=== PATIENT | male | born 1950 | race Caucasian/White ===

== ENCOUNTER → 2016-08-25 | Outpatient (CLI) | payer MEDICARE, OTHER ==
[~2016-08-25] MED LIST: 'XANAX0.25 MG PO; 50% DEXTRO25 GM/50 M IV; ACETAZOLAMIDE250 MG PO; ADVAIR 250/501 EA INH; AKWA TEARS 15 M15 ML OPH; ASPIRIN81 MG PO; AZITHROMYCIN250 MG PO; BISAC-EVAC10 MG R; BISACODYL5 MG PO; BSC; CARAFATE1 G1 PO; CARDIZEM CD120 MG PO; CARTIA XT120 MG PO; CLOPIDOGREL75 MG PO; COREG6.25 MG PO; COUMADIN2.5 M1 PO; COUMADIN5 M2 PO; Carafate1 GM PO; DIAMOX125 MG PO; DUONEB 3 MG/3 ML3 M1 NEB; Duoneb 3ML 3 MG/3 ML INH; EFFIENT10 MG PO; FLOMAX0.4 MG PO; HOSPBED; HUMALOG100 U/ML SC; HUMULIN R100 U/ML SC; JANTOVEN1 MG PO; LANTUS100 U/ML SC; LASIX20 MG PO; LEVEMIR100 U/ML SC; LISINOPRIL10 MG PO; LOPRESSOR25 MG PO; MAPAP325 MG PO; MIRALAX17 GM/DOSE PO; ONDANSETRON2 MG/ML IV; PRAVASTATIN SOD40 MG PO; PREDNISONE10 MG PO; PRILOSEC20 MG PO; PROTONIX40 M1 IV; SHOWERCH; SODIUM CHLORIDE INH; SOLU-MEDROL40 MG IV; SPIRIVA18 MCG PO; TOPROL XL25 MG PO; TYLENOL650 MG R; VITAMIN D31000 IU PO; XANAX0.25 MG PO; [UNRECOGNIZED DRUG - OTHER] PO
[2016-08-25 10:10] LABS: HEMOGLOBIN A1c 6.9 % (4.8-5.6)
[2016-08-25 10:16] LABS: BUN 25 mg/dl (7-24); CARBON DIOXIDE 28 mmol/L (21-32); CHLORIDE 110 mmol/L (98-107); CHOLESTEROL 126 mg/dL (<200); CPK 42 U/L (39-308); EST GLOM FILT AFRICAN AMERICAN > 60 ml/min; GLUCOSE 108 mg/dL (65-99); HDL CHOLESTEROL 47 mg/dl (40-60); LDL CHOLESTEROL 60 mg/dL (9-159); POTASSIUM 4.3 mmol/L (3.5-5.1); SODIUM 143 mmol/L (136-145); TRIGLYCERIDES 96 mg/dl (<150); VLDL CHOLESTEROL 19 mg/dL (6-40)
== END | disposition home or self-care (01) ==
LOC: LAB 09:24
PROVIDERS: Family Medicine
DX: E11.9 Type 2 diabetes mellitus without complications (principal); E78.5 Hyperlipidemia, unspecified

== ENCOUNTER 2016-11-27 10:18 | Inpatient (IN) | payer MEDICARE, OTHER ==
[2016-11-27] VITALS (7 sets, daily range): BP systolic 114–137; BP diastolic 49–66
[~2016-11-27] VITALS: Ht 182.9 cm; Wt 77.2 kg
--- NOTE | ~2016-11-27 | PR ---
[place], [place] PROGRESS NOTE [id number] UN[facility] #: [id number] ROOM: 411 DOCTOR: MAURY FRY MD BIRTHDATE: [birth year] DOS: 12/02/2016 SUBJECTIVE: The patient is comfortably sleeping on BiPAP. OBJECTIVE: VITAL SIGNS: Blood pressure is 140/60, heart rate is 79, afebrile. NECK: Supple, no JVD. LUNGS: Diminished breath sounds. HEART: Sounds are regular, diminished air entry. ABDOMEN: Soft. NEUROLOGIC: Stable. LABORATORY DATA: All pending today. Last hemoglobin was 7.4 and hematocrit 26.1. Creatinine was 1.6. IMPRESSION: The patient with significant anemia, septicemia, chronic obstructive pulmonary disease, atrial fibrillation, emphysema, former smoker. RECOMMENDATIONS: Continue the antibiotics. Consideration should be given for blood transfusion. We will leave it up to the PCP and we will follow up. MAURY FRY MD CM:PNTRANS [id number] MAURY FRY MD 12/02/16 0638 interface
--- NOTE | ~2016-11-27 | PR ---
[place], [place] PROGRESS NOTE NAME: ARLETTE PROCTOR UNIT #: [id number] ROOM: 411 DOCTOR: BHAKTI LEONARDO MD BIRTHDATE: [birth year] DOS: 12/04/2016 SUBJECTIVE: The patient has been noted with a cough which has been not resolving for the patient, noted intermittently productive at times. Denies symptoms of chest pain. Shortness of breath has been noted at times. OBJECTIVE: VITAL SIGNS: For the patient which were recorded. The patient showed the temperature noted normal, respiratory rate 20, heart rate 62, blood pressure 138/60. Pulse oxygen saturation noted on 4 liters nasal cannula 99% saturation. HEENT: No acute change. NECK: Supple. CARDIOVASCULAR: S1, S2 audible. LUNGS: Noted with decreased breath sounds in the lungs bilaterally. ABDOMEN: Soft, nontender. EXTREMITIES: Shows very mild edema. LABORATORY DATA: CBC this morning showed WBC count 28.7, hemoglobin 8.2, hematocrit 28.3, platelet count 513,000. The culture of the sputum was pending at this time. IMPRESSION: 1. Acute right lower lobe pneumonia. 2. Leukocytosis. 3. Small pleural fluid associated with current acute pneumonia. 4. Persistent acute hypoxic respiratory failure. 5. Acute exacerbation of chronic obstructive pulmonary disease. 6. ____ debility. 7. History requirement significant amount of oxygen for this patient as well at this time. PLAN OF TREATMENT: The patient has been started on multiple broad spectrum intravenous antibiotics primary care attending. Monitor chest x-ray. The patient not noted fit for home discharge at this time. Transition from the hospital should be done to the senior care facility for this patient upon discharge. This will be necessary to stabilize the respiratory status. I did have a long discussion with the patient and the son and other family members in detail about the patient's ongoing problems, prognosis and the needed care. [place], [place] PROGRESS NOTE NAME: ARLETTE PROCTOR UNIT #: [id number] ROOM: 411 DOCTOR: BHAKTI LEONARDO MD BIRTHDATE: [birth year] BHAKTI GRAHAM MD CM:PNTRANS [phone] BHAKTI SPEARS MD 12/04/162010 interface
--- NOTE | ~2016-11-27 | PR ---
[place], [place] PROGRESS NOTE NAME: ARLETTE PROCTOR [facility] #: [id number] UNIT #: [id number] ROOM: 411 DOCTOR: SANTOS SPEARS MD,BHAKTI BIRTHDATE: [birth year] DOS: 12/06/2016 SUBJECTIVE: The patient was seen and examined on 12/06/2016. He has been noted comfortable without any distress. Cough has been noted mild intermittently at times. There were no symptoms of acute shortness of breath. Denies having symptoms of chest pain or hemoptysis. OBJECTIVE: VITAL SIGNS: For the patient which has been recorded showed the temperature noted as normal, respiratory rate 20, heart rate 61, blood pressure 136/66. The pulse oxygen saturation of the patient noted on nasal cannula is 98% saturation. HEENT: No acute change. NECK: Supple. CARDIOVASCULAR: S1, S2 audible. LUNGS: The patient was noted with mild decreased breath sounds noted in the lungs bilaterally. There no wheezing or crackles at the present time. ABDOMEN: Soft, nontender. EXTREMITIES: Noted with mild edema. LABORATORY DATA: BMP this morning, BUN 35, creatinine 1.46, glucose of 220. CBC this morning, WBC count 23.9, hemoglobin 8.5, hematocrit 29.6 with platelet count of 535,000. IMPRESSION: 1. The patient with a small possible moderate pleural fluid on the right side noted on CT scan of the chest. 2. Resolving acute pneumonia. 3. Leukocytosis, gradually improving. 4. Improving acute hypercapnic and hypoxic respiratory failure as well. PLAN OF MANAGEMENT: The patient has been assessed personally at the bedside with the ultrasound. The ultrasound of the chest was personally performed. There were no pleural fluid noted in the left side. A very small pleural fluid was noted on the right side, which is not noted safe for thoracentesis to be done based on the ultrasound assessment. PLAN OF TREATMENT: Continue antibiotics, bronchodilators, and oxygen supplementation. Thoracentesis is not recommended. residential facility evaluation for possible discharge for this patient to the penitentiary facility. The patient has already completed the Diamox for the medical management of severe metabolic alkalosis, which has improved related to the chronic hypercarbia. He was also noted ____ for this patient as well, which has been noted stable. [place], [place] PROGRESS NOTE NAME: ARLETTE PROCTOR UNIT #: [id number] ROOM: 411 DOCTOR: SANTOS SPEARS MD,BHAKTI BIRTHDATE: [birth year] BHAKTI GRAHAM MD CM:ROCHELLE [phone] BHAKTI SPEARS MD 12/07/16 010 interface
--- NOTE | ~2016-11-27 | PR ---
[place], [place] PROGRESS NOTE NAME: ARLETTE PROCTOR UNIT #: [id number] ROOM: 411 DOCTOR: BHAKTI LEONARDO MD BIRTHDATE: [birth year] DOS: 12/01/2016 SUBJECTIVE: The patient seen and examined on 12/01/2016. He had ambulated yesterday, noted with hypoxia with oxygen saturation 88%. The patient has not noted any symptoms of chest pain or any hemoptysis. OBJECTIVE: VITAL SIGNS: For the patient which were recorded. The patient shows normal temperature, respiratory rate 20, heart rate 74, blood pressure 104/58 to 115/52. Pulse oxygen saturation on 3 liters nasal canula 92% saturation. HEENT: Showed no acute change. NECK: Supple. CARDIOVASCULAR: S1, S2 is audible. LUNGS: Noted without any wheezing or crackles at the present time. Breaths are noted generally diminished bilaterally. ABDOMEN: Soft, nontender. LABORATORY DATA: Chest x-ray that was done this morning was reviewed and shows small right lower lobe infiltration with small pleural fluid. CBC: WBC count 17.4, hemoglobin 7.4, hematocrit 26.1, platelet count was normal. BMP: BUN 48, creatinine 1.62. IMPRESSION: 1. The patient with resolving acute hypercapnic and hypoxic respiratory failure, acute pneumonia. 2. Small pleural fluid related to current acute pneumonia. 3. Anemia. The etiology was unclear. PLAN OF MANAGEMENT: Continuation of current dose of Solu-Medrol 40 mg b.i.d. The patient getting Xarelto and that needs to be monitored because of the current anemia, rule out any GI bleeding. Pleural fluid is noted small enough at this time but not require any acute intervention. Monitor current treatment. The dose of Solu-Medrol will be decreased tomorrow to 40 mg daily. Ambulation, the patient will be encouraged as needed. Continue oxygen supplementation. [place], [place] PROGRESS NOTE NAME: ARLETTE PROCTOR UNIT #: [id number] ROOM: 411 DOCTOR: BHAKTI LEONARDO MD BIRTHDATE: [birth year] BHAKTI GRAHAM MD CM:PNTRANS [phone] BHAKTI SPEARS MD 12/01/165 interface
--- NOTE | ~2016-11-27 | PR ---
[place], [place] PROGRESS NOTE NAME: ARLETTE PROCTOR [facility] #: [id number] UNIT #: [id number] ROOM: 411 DOCTOR: SANTOS SPEARS MD,BHAKTI BIRTHDATE: [birth year] DOS: 11/30/2016 SUBJECTIVE: He has been continued on the BiPAP ____ use of oxygen supplementation, bronchodilators, and corticosteroids. Partial reduction of the respiratory symptoms has been ____ reduction of wheezing. Denies symptoms of chest pain or an abdominal pain. OBJECTIVE: VITAL SIGNS: Show normal temperature, respiratory rate 18, heart rate 70, blood pressure 114/52. The pulse oxygen saturation was recorded as 96% saturation with 4.5 L nasal cannula oxygen supplementation. HEENT: Examination showed no acute change. LUNGS: Noted with mild to moderate expiratory wheezing, improving. Mild crackles noted at the right lung base. ABDOMEN: Soft, nontender. LABORATORY DATA: BUN of 50, creatinine 1.67. CBC that was done this morning, WBC count 19.2, hemoglobin 7.3, hematocrit 25.6, platelet count was normal. IMPRESSION: 1. Acute right lower lobe pneumonia with acute on chronic hypoxic and hypercapnic respiratory failure. 2. Anemia. 3. Leukocytosis. 4. Acute kidney injury. PLAN OF MANAGEMENT: Reduce the dose of Solu-Medrol at this time to Solu-Medrol 40 mg b.i.d. Previously, the patient has been getting Solu-Medrol 60 mg b.i.d. Obtain a chest x-ray in the morning to reassess the progression of the pneumonia. Ambulation was encouraged. Continue use of BiPAP with oxygen supplementation and other therapies. BHAKTI GRAHAM MD CM:PNTRANS [phone] BHAKTI SPEARS MD 11/30/161958 interface
--- NOTE | ~2016-11-27 | PR ---
[place], [place] PROGRESS NOTE NAME: ARLETTE PROCTOR [facility] #: [id number] UNIT #: [id number] ROOM: 411 DOCTOR: MAURY FRY MD BIRTHDATE: [birth year] DOS: 12/05/2016 SUBJECTIVE: The 24-hour events noted. Discussed with the nursing staff. Hemodynamically, the patient is stable. OBJECTIVE: VITAL SIGNS: Blood pressure is stable at 129/67. HEENT: Unremarkable. NECK: Supple, no JVD. LUNGS: Clear. HEART: Sounds are regular. ABDOMEN: Soft, nontender. NEUROLOGIC: Stable. LABORATORY DATA: White count is elevated to be 27,000, it was 28,000 yesterday; hemoglobin 8.3, hematocrit 29.1. Electrolytes are normal. Creatinine is 1.2. IMPRESSION: Leukocytosis, septicemia, chronic respiratory failure, protein calorie malnutrition, atrial fibrillation in sinus rhythm to sinus bradycardia, emphysema, pulmonary nodule. Former smoker. The patient is comfortably sleeping. Probably elevated white count is from the steroids. Monitor the heart rate and blood pressure. Agree getting UTI evaluation with urinalysis and monitor the blood cultures etc., because of leukocytosis and we will follow up. MAURY FRY MD CM:ROCHELLE [phone] MAURY FRY MD 12/06/16 0249 interface
--- NOTE | ~2016-11-27 | PR ---
[place], [place] PROGRESS NOTE [facility] [id number] UNIT #: [id number] ROOM: 411 DOCTOR: MAURY FRY MD BIRTHDATE: [birth year] DOS: SUBJECTIVE: 24-hour events noted. Discussed with the nursing staff. The patient has been back into sinus rhythm. Hemodynamically much more stable. The patient was seen originally by Dr. Dixon. OBJECTIVE: VITAL SIGNS: The patient's blood pressure is 96/57, little bit on the lower side, but the heart rate is controlled at 71. HEENT: Unremarkable. NECK: Supple, no JVD. LUNGS: Diminished air entry today. Saturation is good. HEART: S1 and S2 audible and regular. Diminished air entry with mild expiratory wheezing. ABDOMEN: Soft. EXTREMITIES: Intact pulses. DIAGNOSTIC DATA: Chest x-ray shows evidence of infiltration of the right lower lobe, still noted and persistent. Impression is paroxysmal atrial fibrillation. LABORATORY DATA: Lab data shows hemoglobin is significantly low at 7.3, hematocrit of 25.6, BUN and creatinine are 50 and 1.67. IMPRESSION: The patient with hypercapnic respiratory failure, right lower lobe pneumonia, paroxysmal atrial fibrillation, chronic renal failure, severe anemia. RECOMMENDATION: The patient has been started on Xarelto. The patient is severely anemic. As the creatinine is elevated, please modify the dosage according to the creatinine clearance or the GFR. Continue the other medications as ordered. Probably might need blood transfusion, I leave it up to the PCP and we will follow up. MAURY FRY MD CM:PNTRANS [phone] MAURY FRY MD 11/30/16 1622 interface
--- NOTE | ~2016-11-27 | PR ---
[place], [place] PROGRESS NOTE [facility] [id number] UNIT #: [id number] ROOM: 411 DOCTOR: BHAKTI LEONARDO MD BIRTHDATE: [birth year] DOS: 12/03/2016 SUBJECTIVE: The patient has been noted comfortable at this time without any distress. The shortness of breath has been noted with intermittent coughing. The patient at this time without any sputum expectoration, which was noted moderate. The patient denies symptoms of chest pain or hemoptysis. OBJECTIVE: VITAL SIGNS: Temperature noted as normal, respiratory rate 20, heart rate 67, blood pressure 146/62-118/63. Pulse oxygen saturation recorded as 95% with BiPAP on 4 liters is 98% saturation. HEENT: Examination shows no new change. NECK: Supple. CARDIOVASCULAR: S1, S2 audible. LUNGS: Noted with decreased breath sounds in the right lower lung. Occasional wheezing. ABDOMEN: Soft, nontender. LABORATORY DATA: CBC was done this morning, WBC count was elevated to 24.6, hemoglobin 8.4, hematocrit 28.9 and platelet count 479,000. CMP of this morning, BUN 42, creatinine was normal, glucose 216 and CO2 of 41. Chest x-ray was done this morning was reviewed and noted with infiltration in the right lower lobe with partial improvement to consider. IMPRESSION: 1. The patient with ongoing acute on chronic hypercapnic and hypoxic respiratory failure. 2. The patient's metabolic alkalosis secondary to chronic hypercarbia. 3. Acute right lower lobe pneumonia with cough and leukocytosis. PLAN OF MANAGEMENT: Consideration for bronchoscopy. Use of the Diamox at low dose to resolve the metabolic alkalosis. Addition of treatment changes need to be made based on progression of the illness. Continue to monitor leukocytosis. Antibiotics spectrum might need to be changed for this patient if the chest x-ray does not show any further improvement in the pulmonary infiltration. [place], [place] PROGRESS NOTE NAME: [facility] PROCTOR [facility] #: [id number] UNIT #: [id number] ROOM: 411 DOCTOR: BHAKTI LEONARDO MD BIRTHDATE: [birth year] BHAKTI GRAHAM MD CM:PNTRANS 1221 BHAKTI SPEARS MD 12/04/16 0117 interface
--- NOTE | ~2016-11-27 | EKG ---
[place], [place] ELECTROCARDIOGRAM REPORT NAME: ARLETTE PROCTOR UNIT #: [id number] ROOM: 411 DOCTOR: YOEL PETERSON MD BIRTHDATE: [birth year] DOS: 11/27/2016 TIME: 2132 hours. Atrial fibrillation with ventricular rate of 163 beats per minute. Nonspecific ST-T wave changes in lateral chest leads. Abnormal ECG. No previous tracing is available for comparison. YOEL PETERSON MD CM:EKGRPT:ELECTROCARDIOGRAM REPORT 1152 1324 YOEL PETERSON MD
--- NOTE | ~2016-11-27 | PR ---
[place], [place] PROGRESS NOTE NAME: ARLETTE PROCTOR [facility] #: [id number] UNIT #: [id number] ROOM: 411 DOCTOR: YOEL PETERSON MD BIRTHDATE: [birth year] DOS: 12/06/2016 SUBJECTIVE: The patient is feeling much better. He has some shortness of breath, but ____ when he came. He has no palpitations. He has ____ PND, orthopnea or swelling of the lower extremities. He was in atrial fibrillation when he came and he has history of the same, therefore propafenone was started while he was in the ICU. OBJECTIVE: GENERAL: He is sitting in a chair, has oxygen on, with mild tachypnea. VITAL SIGNS: Temperature is normal, pulse is 60 and regular, blood pressure 133/66. NECK: Normal JVP. EXTREMITIES: There is no edema in lower extremities, however, muscle mass of the legs has decreased. LUNGS: Breath sounds are severely diminished with adventitious sounds. LABORATORY DATA: Monitor shows normal sinus rhythm. IMPRESSION: 1. Paroxysmal atrial fibrillation, triggered by chronic obstructive pulmonary disease exacerbation. He is in normal sinus rhythm and propafenone should be continued. 2. There is no clinical evidence of cardiac decompensation. 3. Anemia seems to have settled down. YOEL PETERSON MD CM:PNTRANS [phone] YOEL PETERSON MD 12/06/16 1656 interface
--- NOTE | ~2016-11-27 | PR ---
[place], [place] PROGRESS NOTE NAME: ARLETTE PROCTOR [facility] #: [id number] UNIT #: [id number] ROOM: 411 DOCTOR: SANTOS SPEARS MD,BHAKTI BIRTHDATE: [birth year] DOS: 12/02/2016 PULMONARY FOLLOWUP SUBJECTIVE: He has been noted comfortable at this time, resting on his bed. The patient's shortness of breath has been noted intermittently improved. The cough has been noted with some sputum expectoration at times. OBJECTIVE: VITAL SIGNS: Normal temperature, respiratory rate 20, heart rate 67, blood pressure 126/58. Pulse oxygen saturation of the patient noted on 4 liters nasal cannula 96% saturation. HEENT: Showed no acute change. NECK: Supple. CARDIOVASCULAR: S1, S2 is audible. LUNGS: The patient was noted with moderate reduction in the breath sounds bilaterally with mild expiratory wheezing, no crackles. ABDOMEN: Soft, nontender. LABORATORY DATA: Culture of the blood from the 14th showed no bacterial growth. BMP: BUN 47, creatinine 1.42. CBC: WBC count 19.5, hemoglobin 7.3, hematocrit 25.3, platelet count 431,000. Chest x-ray was done yesterday was noted with pulmonary infiltration. IMPRESSION: 1. The patient with leukocytosis with acute pneumonia, acute hypoxic and hypercapnic respiratory failure. 2. Generalized debility was still noted. PLAN OF TREATMENT: Continue the BiPAP intermittently, bronchodilators, oxygen supplementation and expectant management at this time. Other supportive therapy, plan of management and care. BHAKTI GRAHAM MD CM:PNTRANS [phone] BHAKTI SPEARS MD 12/03/16 0234 interface
--- NOTE | ~2016-11-27 | EKG ---
[place], [place] ELECTROCARDIOGRAM REPORT NAME: ARLETTE PROCTOR UNIT #: [id number] ROOM: 411 DOCTOR: YOEL PETERSON MD BIRTHDATE: [birth year] DOS: 11/27/2016 TIME: 1038 hours. Normal sinus rhythm at 98 beats per minute. The tracing is normal. No previous tracing is available for comparison. YOEL PETERSON MD CM:EKGRPT:ELECTROCARDIOGRAM REPORT 1151 1324 YOEL PETERSON MD
--- NOTE | ~2016-11-27 | PR ---
[place], [place] PROGRESS NOTE NAME: ARLETTE PROCTOR [facility] #: [id number] UNIT #: [id number] ROOM: 411 DOCTOR: SANTOS SPEARS MD,BHAKTI BIRTHDATE: [birth year] DOS: 12/05/2016 SUBJECTIVE: The patient was noted with minimal cough at this time. Shortness of breath has been resolving. There were no symptoms of chest pain or abdominal pain. Spontaneous sputum culture from the 20th was noted without any bacterial growth. OBJECTIVE: VITAL SIGNS: Normal temperature, respiratory rate 20, heart rate 59, blood pressure 132/70. The pulse oxygen saturation of the patient recorded as 98% on 3 L nasal cannula. CARDIOVASCULAR: S1, S2 audible. LUNGS: Noted with decreased breath sounds in the lungs noted bilaterally. ABDOMEN: Soft, nontender. Bowel sounds present. EXTREMITIES: The patient was noted without any edema, clubbing or cyanosis. LABORATORY DATA: CBC of the patient that was done this morning, WBC count was elevated at 27,000, hemoglobin 8.3, hematocrit 29.1, platelet count 537,000. The cultures of the sputum of the patient noted isolation of yeast. BMP today; glucose 207, BUN 35, creatinine was normal, CO2 of 33. Chest x-ray without contrast ordered by the primary care attending was reviewed and shows evidence of small to possible moderate-sized right pleural fluid, evidence of granulomatous lung disease, which has been noted chronic. Bullous emphysema. The patient was also noted in the upper lung, predominantly with centrilobular emphysema component as well. Mild mediastinal hilar lymphadenopathy would be suggested, but because of lack of IV contrast, the mediastinal structure cannot be clearly delineated. IMPRESSION: 1. The patient with leukocytosis. The patient currently treated for the acute pneumonia. The WBC count still remains elevated significantly. 2. The patient on anticoagulation as well. 3. Pleural fluid, possibly related to pneumonia or congestive heart failure remains as a consideration. 4. History of atrial fibrillation on Xarelto for the patient long-term anticoagulation. PLAN OF TREATMENT: The patient will be assessed with the ultrasound tomorrow. If there is significant pleural fluid, which would be tappable, thoracentesis could be done if the patient agrees to that. In the meantime, continue the patient on other therapy, plan and management. Suggest reducing antibiotic spectrum for this patient, the leukocytosis partly could be related to the use of the corticosteroids and some of it may be related and other infection to be excluded with the symptoms if present such as C. diff colitis. [place], [place] PROGRESS NOTE NAME: ARLTETE PROCTOR [place] UNIT #: [id number] ROOM: [facility] DOCTOR: BHAKTI LEONARDO MD BIRTHDATE: [birth year] BHAKTI GRAHAM MD CM:PNTRANS [phone] BHAKTI SPEARS MD 12/06/16 0335 interface
--- NOTE | ~2016-11-27 | CON ---
[place], [place] REPORT OF CONSULTATION [id number] UNIT #: [id number] ROOM: [facility] DOCTOR: YOEL PETERSON MD BIRTHDATE: [birth year] DOS: HISTORY OF PRESENT ILLNESS: This is a 66-year-old -Honduran man with a history of severe COPD with exacerbations, who has had, I believe, diastolic heart failure, has moderate pulmonary hypertension, hypocholesterolemia, atrial fibrillation, anemia, BPH and has had coronary artery disease and coronary artery bypass graft surgery in the remote past. He also had acute renal failure back in 2014, when he required dialysis for a short time. He quit smoking, quit long time ago and lives at home. He was admitted to the hospital because of increasing shortness of breath and cough over the last few days. There is very little expectoration. He had some chills, but no chest pain or palpitations. He did not have any swelling in the legs. His appetite has been down substantially. The patient was admitted to the hospital and was placed on BiPAP because of chronic respiratory failure with exacerbation. He was in sinus rhythm on admission, but last night, developed atrial fibrillation with rapid ventricular rate and I was asked to advise regarding management. IV Cardizem was started that slowed down the heart rate; however, he still remains in atrial fibrillation, but he is not aware of his heart beating irregularly. HOME MEDICATIONS: Include Symbicort, Xarelto 20 daily, metoprolol succinate 25 mg b.i.d., simvastatin 40 mg daily, diltiazem/Cartia XT 120 mg once a day, Carafate 1 gram b.i.d. and tamsulosin/Flomax 0.4 mg daily and furosemide 40 mg daily. PHYSICAL EXAMINATION: GENERAL: Reveals the patient who was alert, looked pale. He had a pressure support for breathing and was more modestly tachypneic. VITAL SIGNS: Temperature was normal. Pulse was irregular at about 104 beats per minute, blood pressure 106/61. NECK: JVP was normal. No bruit in the neck. HEART: There was no cardiomegaly. No murmurs were present. There was no pericardial friction rub. He had no edema in the lower extremities. RESPIRATORY: Breath sounds were severely diminished bilaterally with his severe crackles during inspiration and expiration. DIAGNOSTIC STUDIES: ECG on admission demonstrated sinus tachycardia. Second ECG demonstrated atrial fibrillation with a ventricular rate of 163 beats per minute. The monitor now shows atrial fibrillation with a rate in the 80s. Chest x-ray demonstrates COPD and no pulmonary edema. Hemoglobin of 7.5 grams per deciliter, potassium 4.0 and troponin I level was elevated to 0.841 until the night and on admission, it was less than 0.015. IMPRESSION: 1. Acute exacerbation of chronic obstructive pulmonary disease causing significant respiratory failure. [place], [place] REPORT OF CONSULTATION NAME: ARLETTE PROCTOR UNIT #: [id number] ROOM: [facility] DOCTOR: YOEL PETERSON MD BIRTHDATE: [birth year] 2. Atrial fibrillation with recurrence of atrial fibrillation, probably induced viral chronic obstructive pulmonary disease exacerbation. 3. No evidence of heart failure. 4. Severe anemia. RECOMMENDATIONS: If the patient has no blood in the stools, anticoagulation should be continued. Propafenone 150 q. 8 h. being started to restore normal sinus rhythm. Please check magnesium level. I thank you for this consult. YOEL PETERSON MD CM:CONSTR:REPORT OF CONSULTATION 0632 11/28/16 1539 interface
--- NOTE | ~2016-11-27 | CON ---
[place], [place] REPORT OF CONSULTATION NAME: ARLETTE PROCTOR [facility] #: [id number] UNIT #: [id number] ROOM: [facility] DOCTOR: BHAKTI LEONARDO MD BIRTHDATE: [birth year] DOS: 11/28/2016 CONSULTATION REQUESTED BY: Hospitalist Service. REASON FOR CONSULTATION: For assessment of the acute respiratory failure. The patient had noticed problems with exacerbation of COPD. HISTORY OF PRESENT ILLNESS: This is a 66-year-old white male very well known to me from the past with history of severe centrilobular emphysema and history of past chronic hypoxic respiratory failure, currently not using oxygen supplementation, came to the hospital Emergency Room. The patient reported ongoing acute respiratory symptoms for the past 1 month. The symptoms noted significant worsening in the last 5 days and a lot worse for this patient in 24 hours prior to assessment in the Emergency Room. He was also noted with increased cough which has been noted nonproductive, sometimes sputum expectoration noted as mucous expectoration. He denies symptoms of chest pain. The patient has been seen by the primary care physician and has been treated with the antibiotics, bronchodilators without any response to the treatment. He came into the hospital. The patient has been currently admitted to intensive care unit for medical management of acute hypercapnic and hypoxic respiratory failure. This morning, the patient noted on the BiPAP use. He denied symptoms of hemoptysis or any acute chest pain. REVIEW OF SYSTEMS: CONSTITUTIONAL: He does have symptoms of fatigue and tiredness without symptoms of fever or chills. EYES: Denies any burning, redness, or tenderness. EARS, NOSE AND THROAT: Denies sore throat, hoarseness, otalgia, or postnasal drainage or epistaxis. CARDIOVASCULAR: Denies anginal pain, edema or pain of the lower extremities. GASTROINTESTINAL: Denies dysphagia, nausea, vomiting, diarrhea, abdominal pain, hematemesis, melena, hematochezia. SKIN: Denies lesions or rashes. MUSCULOSKELETAL: Denies acute joint pain, redness, or tenderness. SKIN: No lesions or rashes. CENTRAL NERVOUS SYSTEM: Denies diplopia or syncopal episodes. Remaining systems were reviewed with the patient, they were noted all negative. PAST MEDICAL HISTORY: Known with history of: 1. Severe COPD and centrilobular emphysema. 2. Generalized anxiety disorder. 3. Prolonged illness of patient with acute kidney injury and critical care illness-induced myopathy with decreased ambulation resolved progressively. 4. Essential hypertension. 5. History of atrial fibrillation as well. 6. Past hypoxic respiratory failure, resolved. 7. Atherosclerotic cardiovascular disease. 8. History of past pulmonary nodules which appeared to be benign and stable. 9. History of coronary artery disease. [place], [place] REPORT OF CONSULTATION NAME: ARLETTE PROCTOR UNIT #: [id number] ROOM: [facility] DOCTOR: NOEMY LEONARDO MDM BIRTHDATE: [birth year] PAST SURGICAL HISTORY: 1. Coronary artery bypass grafting. 2. Cardiac catheterization with 3-vessel bypass and coronary artery stent insertion. 3. History of mechanical ventilation and intubation. 4. Fiberoptic bronchoscopy. 5. Short term hemodialysis, resolved in 03/2014. SOCIAL HISTORY: The patient is and lives at home. History of tobacco use noted at younger age. The patient smoked up to 5 packs of cigarettes per day, not smoking cigarettes on a regular basis. Denies history of alcohol use, illicit drug use. FAMILY HISTORY: Mother at the age of 5858 years old, complications of COPD. Father at age 67-year-old with history of complication of myocardial infarction. MEDICATIONS: On admission were noted as use of Xarelto, metoprolol tartrate, Cardizem-CD, aspirin, Symbicort, ProAir HFA, Flomax, Zocor, Carafate, Lasix, Toprol XL. DRUG ALLERGIES: No known drug allergies. PHYSICAL EXAMINATION: GENERAL: This is a 66-year-old white male, currently using the BiPAP at this time appeared to be comfortable with that. VITAL SIGNS: The patient's height was recorded by the nursing staff at the time of current admission with height of 6 feet, weight of 177 pounds. Shows the temperature was recorded normal since admission. Respiratory rate range between 18 to 22, heart rate of 108 to 113 and then later on 85, blood pressure 132/60 to 109/59. Intake is 1600, output 550 mL in the last 12 hours. Pulse oxygen saturation for this patient on room air was 84% and on 4 liters nasal cannula 92% with BiPAP 99% saturation recorded at this time. HEENT: Shows head was atraumatic. Eyes nonicterus. NECK: Supple. CARDIOVASCULAR: S1, S2 audible. LUNGS: General reduction of breath sound, diffuse expiratory wheezing. Crackles noted in the lung bases, the patient has scattered. ABDOMEN: Soft, nontender, bowel sounds present. CENTRAL NERVOUS SYSTEM: Cranial nerves 2-12 intact. No focal deficits. MUSCULOSKELETAL: No deformities. SKIN: No lesions or rashes. LABORATORY AND DIAGNOSTIC DATA: The CBC of 11/27/2016, WBC count 21.5, hemoglobin 8.4, hematocrit 29.4, platelet count was normal. The lactic acid noted 1.3 yesterday. PT/PTT yesterday were normal. The CMP of the patient that were done yesterday on admission was noted BUN 20, creatinine 1.31. First arterial blood gas on 5 liters, pH of 7.11, pCO2 of 67, pO2 of 42. Second arterial blood gas of the patient with 5 liters nasal cannula oxygen, pH of [place], [place] REPORT OF CONSULTATION NAME: ARLETTE PROCTOR UNIT #: [id number] ROOM: [facility] DOCTOR: SANTOS SPEARS MD,[facility] BIRTHDATE: [birth year] 7.14, pCO2 of 58, pO2 of 68. The first arterial blood gas appeared to be venous gas. CBC this morning WBC count 21.7, hemoglobin 7.3, hematocrit 26.7, platelet count 273,000 with only differential noted with 97% segmented neutrophils. The BMP of this morning with BUN 28, creatinine 1.55, glucose 271. CBC of 11/28/2016 were noted. Radiology data reviewed. The chest x-ray of the patient that was done on admission was noted with moderate area of consolidation and infiltration noted in the right lung with severe COPD changes with bullous emphysema. The patient was noted in the right upper lobe and some to the left lower lobe, greater on the right than the left side. The chest x-ray of the patient again later on in the afternoon for this patient's admission, similar changes to the x-ray noted previously with an area of consolidation in the right lower lobe and severe COPD changes as well tortuous aorta was also described by the radiologist. IMPRESSION: 1. The patient who has been currently admitted to the hospital noted with severe acute hypercapnic and hypoxic respiratory failure, currently treated with Bilevel treatment, responding to the treatment clinically. 2. Acute large pneumonia of the patient's right lower lobe as well with possible consideration of gram-positive organism with the patient's community-acquired infection. 3. The patient with bullous emphysema also noted in the lungs, which has been known from the past with pulmonary disease. 4. History of essential hypertension, coronary artery disease, atrial fibrillation with rapid ventricular response. PLAN OF MANAGEMENT: Obtain the sputum for Gram stain and culture as well. Obtain arterial blood gases of the patient as well to assess the patient progression of the ventilatory improvement at the present time. Clarify the code status from the patient for intubation and mechanical ventilation, also discuss with the family members. Other additional treatment changes need to be made based on progression of the illness. Obtain a PA and lateral chest view in the morning for the assessment of the pneumonia, more accurate assessment of the lower lobes as well accordingly. Continuation of the current dose of Solu-Medrol as well. Bronchodilators. Other additional treatment changes need to be made for this patient's treatment based on progression of the illness. The patient will be encouraged continued to use the Bilevel mode of treatment at the current settings with further adjustment in the setting of Bilevel which will be done based on the progression of his illness. Bilevel mode of treatment continue to be used on the patient most of the time except meals. If the patient remains a full code, certainly consider intubation and mechanical ventilation to support the respiratory status in case of failure of the BiPAP response. [place], [place] REPORT OF CONSULTATION NAME: ARLETTE PROCTOR UNIT #: [id number] ROOM: [facility] DOCTOR: BHAKTI LEONARDO MD BIRTHDATE: [birth year] BHAKTI GRAHAM MD CM:CONSTR:REPORT OF CONSULTATION 1317 11/29/16 1328 interface
--- NOTE | ~2016-11-27 | PR ---
[place], [place] PROGRESS NOTE NAME: ARLETTE PROCTOR UNIT #: [id number] ROOM: 411 DOCTOR: BHAKTI LEONARDO MD BIRTHDATE: [birth year] DOS: 11/29/2016 SUBJECTIVE: He has been noted comfortable at this time, sitting on the chair. The oxygen supplementation is continued. The cough has been noted with some sputum expectoration, wheezing was noted partially decreased, reduction of shortness of breath at this time. The patient has used the BiPAP for several hours in the last 24 hours. OBJECTIVE: VITAL SIGNS: For the patient was noted as normal temperature, respiratory rate 18-19, heart rate 68, and blood pressure 109/65. Pulse oxygen saturation on 35% oxygen was 97% saturation recorded. HEENT: Examination shows no new change. NECK: Supple. CARDIOVASCULAR: S1, S2 is audible. LUNGS: Noted with general reduction in the breath sounds with expiratory wheezing in the lungs bilaterally. ABDOMEN: Soft, nontender. EXTREMITIES: Does not show any edema, clubbing or cyanosis. LABORATORY DATA: The chest x-ray of the patient that was done today, PA and lateral view, shows evidence of infiltration in the right lower lobe was still noted persistent, but partially decreased. IMPRESSION: 1. The patient who has been currently noted with acute severe hypercapnic and hypoxic respiratory failure. The patient has a combination of acute right lower lobe pneumonia, community-acquired infection with acute exacerbation of chronic obstructive pulmonary disease as well. 2. Metabolic alkalosis secondary to hypercarbia. PLAN OF TREATMENT: Continuation of the current dose of bronchodilator with oxygen supplementation. Solu-Medrol is currently given at 60 mg b.i.d., which will remain the same. Use of the BiPAP and other treatment for patient as previously to support his respiratory status. Monitoring all the culture results. Additional treatment changes need to be made for this patient based on progression of his illness. Usual care and other plan of therapies. [place], [place] PROGRESS NOTE NAME: ARLETTE PROCTOR UNIT #: [id number] ROOM: 411 DOCTOR: BHAKTI LEONARDO MD BIRTHDATE: [birth year] BHAKTI GRAHAM MD CM:ROCHELLE [phone] BHAKTI SPEARS MD 11/30/168 interface
--- NOTE | 2016-11-27 10:45 | NUR ---
PT IS HOME O2 DEPENDENT ON 2L QHS, PT WAS W/O O2 AND SOB UPON HIS ARRIVAL POX 84% RA, 4L WAS APPLIED PT O2 97% WILL MONITOR.
[2016-11-27 10:55] LABS: BASO % 0.1 % (0.0-1.0); EOS % 0.1 % (1.0-4.0); HEMATOCRIT 29.6 % (42.0-52.0); HEMOGLOBIN 8.4 g/dl (14.0-18.0); LYMPH # 0.8 10*3/uL (1.3-4.4); LYMPH % 3.8 % (27.0-41.0); MEAN CELL VOLUME 82.2 fl (80.0-94.0); MEAN CORPUSCULAR HGB 23.3 pg (27.0-31.0); MEAN CORPUSCULAR HGB CONC 28.4 g/dl (33.0-37.0); MEAN PLATELET VOLUME 9.8 fl (9.6-12.3); MONO # 1.5 10*3/uL (0.1-1.0); MONO % 6.9 % (3.0-9.0); NEUT % 88.4 % (47.0-73.0); PLATELET COUNT AUTOMATED 305 10*3/uL (130-400); RED CELL DISTRI WIDTH 16.7 % (0-14.5); WHITE BLOOD COUNT 21.5 10*3/uL (4.8-10.8)
[2016-11-27 11:06] LABS: ACT PARTIAL THROMBO TIME 41.4 SECONDS (20.8-31.5)
[2016-11-27 11:14] LABS: ALBUMIN 3.2 gm/dl (3.1-4.5); ALKALINE PHOSPHATASE 114 U/L (45-117); BUN 20 mg/dl (7-24); CHLORIDE 109 mmol/L (98-107); CREATININE 1.31 mg/dL (0.70-1.30); MAGNESIUM 2.4 mg/dL (1.5-2.1); POTASSIUM 3.8 mmol/L (3.5-5.1); SGOT/AST 11 IU/L (3-35); SGPT/ALT 21 U/L (12-78); SODIUM 142 mmol/L (136-145); TOTAL PROTEIN 7.6 gm/dL (6.4-8.2)
[2016-11-27 11:17] LABS: TROPONIN I < 0.015 ng/ml (<0.045)
--- NOTE | 2016-11-27 12:46 | NUR ---
A 66, admitted to , under the services of KRIS Yost DO with a diagnosis of RESPITORY FAILURE . Chief complaint is SOB SINCE TUESDAY. Patient arrived via stretcher from ER. Monitor applied. Initial assessment completed. Vital signs taken and recorded. KRIS YOST DO notified of admission to the unit. Orders received. See assessment for past medical history, medications and allergies. Patient and/or family oriented to unit. [facility]. Clothing/patient valuable form completed. NUSRAT RICHARDSON
[2016-11-27] MEDS ORDERED: XARE20MG PO (13:07)
[2016-11-27] MEDS ORDERED: LASIX40 MG PO (13:08)
[2016-11-27] MEDS ORDERED: ZOCOR40 MG PO (13:08)
[2016-11-27] MEDS ORDERED: Carafate1 GM PO (13:09)
[2016-11-27] MEDS ORDERED: SYMB160 INH (13:11)
--- NOTE | 2016-11-27 13:57 | NUR ---
DR. GRAHAM NOTIFIED OF CONSULT.
[2016-11-27 21:49] LABS: HEMATOCRIT 26.5 % (42.0-52.0); HEMOGLOBIN 7.5 g/dl (14.0-18.0); MEAN CELL VOLUME 83.1 fl (80.0-94.0); MEAN CORPUSCULAR HGB 23.5 pg (27.0-31.0); MEAN CORPUSCULAR HGB CONC 28.3 g/dl (33.0-37.0); MEAN PLATELET VOLUME 10.2 fl (9.6-12.3); NUCLEATED RED BLOOD CELL 0.1 % (0.0-0.0); PLATELET COUNT AUTOMATED 286 10*3/uL (130-400); RED BLOOD COUNT 3.19 10*6/uL (4.50-5.90); RED CELL DISTRI WIDTH 16.6 % (0-14.5); WHITE BLOOD COUNT 22.5 10*3/uL (4.8-10.8)
[2016-11-27 22:08] LABS: BUN 20 mg/dl (7-24); CHLORIDE 108 mmol/L (98-107); CREATININE 1.31 mg/dL (0.70-1.30); SODIUM 140 mmol/L (136-145)
[2016-11-27 22:12] LABS: TOTAL CELLS COUNTED 100 #CELLS; TROPONIN I 0.374 ng/ml (<0.045)
[2016-11-27 22:13] LABS: OVALOCYTES FEW
[2016-11-27 22:14] LABS: POLYCHROMASIA SLIGHT
[2016-11-27 22:18] LABS: MICROCYTOSIS SLIGHT; PLATELET SUFFICIENCY NORMAL (NORMAL)
[2016-11-28] VITALS (13 sets, daily range): BP systolic 89–123; BP diastolic 55–66
--- NOTE | 2016-11-28 01:36 | NUR ---
Dr. Pelaez notified of arrival to [facility]. Dr. Pelaez said okay to give liter bolus that is on EMAR. Patients respirations are labored and use of accessory muscles noted. Lungs are very diminished without rales or rhonchi. O2 4L nasal intact. Cardizem infusing. Will continue to monitor closely.
--- NOTE | 2016-11-28 01:43 | NUR ---
PATIENT HEART RATE UP IN THE 160'S WITH A SPIKE UP TO [address] DE LA ROSA AND RECEIVED NEW ORDERS FOR TROPONIN, EKG, CXR, AND REPEAT CBC AND BMP. EKG CAME BACK WITH A-FIV WITH RAPID VENTRICULAR RATE OF 163. NEW ORDER FOR CARDIZEM DRIP WITH 10MG BOLUS AND RATE OF 5MG AND TO TITRATE AT 2200. B/P 114/66. NEW ORDER TO CONSULT DR. PETERSON, ASA AND REPEAT TROPONIN AT 12AM. DR. PETERSON NOTIFIED AND ORDERED LOPRESSOR 5MG IV NOW AND AGAIN IN 10 MINUTES AND LOPRESSOR 25MG BID. LOPRESSOR 5MG IV GIVEN. B/P DOWN TO 89/59. SECOND DOSE OF IV LOPRESSOR WAS ORDERED TO BE HELD BY DR. PETERSON. PATIENT VERY SOB. O2 UP TO 4L N/C. O2 SAT 93%. 12AM TROPONIN CRITICAL AT 0.841. DR. PETERSON NOTIFIED AND SAID OK, ALSO NOTIFIED OF TROPONIN, CXR RESULTS, H&H AND PATIENT BEING SOB. NEW ORDER FOR SOLU-MEDROL 125MG NOW AND TO TRANSFER PATIENT TO ICU. PATIENT TRANSFERRED TO ICU ROOM #4 AND REPORT GIVEN TO NURSE.
--- NOTE | 2016-11-28 01:55 | NUR ---
GIVEN TYLENOL FOR C/O GENERALIZED DISCOMFORT. RATES PAIN 4/10. WILL MONITOR FOR EFFECTIVENESS.
--- NOTE | 2016-11-28 02:50 | NUR ---
DENIES PAIN. TYLENOL EFFECTIVE.
--- NOTE | 2016-11-28 03:37 | NUR ---
PATIENT RESPIRATION IN 30'S. ABG'S DRAWN. RESPIRATORY PAGED FOR DUONEB. USING ACCESSORY MUSCLES. LUNGS REMAIN DIMINISHED. O2 INCREASED TO 5L NASAL CANNULA. 89% ON 4L.
[2016-11-28 03:40] LABS: ABG HCO3 20.7 mmol/l (22-26); ABG O2 SATURATION 68.1 % (95-97); ARTERIAL BLOOD GAS PCO2 67.7 mmHg (35-45); ARTERIAL BLOOD GAS PO2 42.6 mmHg (80-90)
[2016-11-28 03:43] LABS: ABG BASE EXCESS -8.3 mmol/L (-2.0-2.0); ARTERIAL BLOOD GAS PH 7.111 (7.35-7.45)
[2016-11-28 04:07] LABS: ABG HCO3 19.6 mmol/l (22-26); ABG O2 SATURATION 90.2 % (95-97); ARTERIAL BLOOD GAS PCO2 58.6 mmHg (35-45); ARTERIAL BLOOD GAS PO2 68.1 mmHg (80-90)
[2016-11-28 04:11] LABS: ABG BASE EXCESS -8.6 mmol/L (-2.0-2.0)
[2016-11-28 04:12] LABS: ARTERIAL BLOOD GAS PH 7.147 (7.35-7.45)
--- NOTE | 2016-11-28 04:21 | NUR ---
AND DR. DE LA ROSA NOTIFIED OF ABG RESULTS.
--- NOTE | 2016-11-28 06:16 | NUR ---
HEART RATE 70-80'S CARDIZEM DECREASED TO 10MG/HR. A-FIB/FLUTTER WITH OCCASSIONAL PVC. DR. PETERSON HERE TO SEE PATIENT.
[2016-11-28 06:38] LABS: HEMATOCRIT 26.7 % (42.0-52.0); HEMOGLOBIN 7.3 g/dl (14.0-18.0); MEAN CORPUSCULAR HGB CONC 27.3 g/dl (33.0-37.0); MEAN PLATELET VOLUME 10.2 fl (9.6-12.3); NUCLEATED RED BLOOD CELL 0.1 % (0.0-0.0); PLATELET COUNT AUTOMATED 273 10*3/uL (130-400); RED BLOOD COUNT 3.18 10*6/uL (4.50-5.90); RED CELL DISTRI WIDTH 16.7 % (0-14.5); WHITE BLOOD COUNT 21.7 10*3/uL (4.8-10.8)
[2016-11-28 07:00] LABS: CREATININE 1.55 mg/dL (0.70-1.30); MAGNESIUM 2.5 mg/dL (1.5-2.1); PHOSPHOROUS 3.3 mg/dL (2.5-4.9); POTASSIUM 4.4 mmol/L (3.5-5.1)
[2016-11-28 07:05] LABS: OVALOCYTES FEW; PLATELET SUFFICIENCY NORMAL (NORMAL); POLYCHROMASIA SLIGHT; TOTAL CELLS COUNTED 100 #CELLS
[2016-11-28 07:06] LABS: THYROID STIM HORMONE (HS) 0.583 uIU/ml (0.358-4.75)
--- NOTE | 2016-11-28 08:15 | NUR ---
RESTING IN BED. BI-PAP TAKEN OFF AND PLACED ON NASAL CANNULA 3.5L. PULSE OX 96%. RALES HEARD IN RIGHT BASE. NO PERIPHERAL EDEMA NOTED. ABDOMEN SOFT AND NONTENDER. HYPOACTIVE BOWEL SOUNDS HEARD TIMES FOUR QUADS. URINAL AT BEDSIDE.
[2016-11-28 09:00] LABS: VITAMIN D, 25-HYDROXY 33.4 ng/mL (30-100)
[2016-11-28 13:33] LABS: ABG HCO3 19.7 mmol/l (22-26); ABG O2 SATURATION 89.6 % (95-97)
[2016-11-28 13:34] LABS: ARTERIAL BLOOD GAS PCO2 46.9 mmHg (35-45); ARTERIAL BLOOD GAS PH 7.241 (7.35-7.45); ARTERIAL BLOOD GAS PO2 58.6 mmHg (80-90)
[2016-11-28 13:35] LABS: ABG BASE EXCESS -6.9 mmol/L (-2.0-2.0)
--- NOTE | 2016-11-28 14:00 | NUR ---
TAKEN OFF BI-PAP AND PLACED ON 4L NASAL CANNULA.
--- NOTE | 2016-11-28 17:06 | NUR ---
CALLED REGARDING RYTHM CONVERTED TO NSR-RATE 70'S. BLOOD PRESSURE 98/57. ORDER RECEIVED TO DECREASE GTT RATE TO 5MG/HR NOW AND THEN STOP THE GTT ON 11/29/16 AT 0600 AND THEN RESTART PRIOR PO DOSE.
--- NOTE | 2016-11-28 20:33 | NUR ---
PT. RESTING IN BED. HEP LOCK IN LW AND RH ASYMPT. CARDIZEM DRIP CONTINUES AT 5MG/HR ORDERED VIA RH. LUNGS DIMINISHED BILAT PULSE OX 99% ON 35% BIPAP. ABDOMEN SOFT, NONDISTENDED AND NORMO. NO PERIPHERAL EDEMA NOTED. RESP. EASY AND REG, NO DISTRESS. STANLEY RICKETTS RN
[2016-11-29] VITALS (8 sets, daily range): BP systolic 90–129; BP diastolic 31–70
[2016-11-29 04:19] LABS: HEMATOCRIT 24.8 % (42.0-52.0); HEMOGLOBIN 7.1 g/dl (14.0-18.0); MEAN CELL VOLUME 81.8 fl (80.0-94.0); MEAN CORPUSCULAR HGB 23.4 pg (27.0-31.0); MEAN CORPUSCULAR HGB CONC 28.6 g/dl (33.0-37.0); MEAN PLATELET VOLUME 10.7 fl (9.6-12.3); NUCLEATED RED BLOOD CELL 0.2 % (0.0-0.0); PLATELET COUNT AUTOMATED 294 10*3/uL (130-400); RED BLOOD COUNT 3.03 10*6/uL (4.50-5.90); RED CELL DISTRI WIDTH 16.9 % (0-14.5); WHITE BLOOD COUNT 21.3 10*3/uL (4.8-10.8)
[2016-11-29 04:41] LABS: MICROCYTOSIS SLIGHT; OVALOCYTES FEW; PLATELET SUFFICIENCY NORMAL (NORMAL); TOTAL CELLS COUNTED 100 #CELLS
[2016-11-29 04:44] LABS: CREATININE 1.71 mg/dL (0.70-1.30); POTASSIUM 4.2 mmol/L (3.5-5.1)
--- NOTE | 2016-11-29 08:00 | NUR ---
Awakened for VS . Bi-Pap to off convert to NC at 3.5 l. Then to Rad for CXR PA and Lat. Returned to room to chair for breakfast . O2 SAT 95% on Bi-Pap on return from radiology SAT is 88% on 3.5 L increased to 4L via NC for meal , resulting increase of SAT to 89-93%.
--- NOTE | 2016-11-29 15:47 | NUR ---
Bi-pap on for approximatley 2 hours. OFF at this time. Family in to visit. Dr. Dixon in. ECHO complete. Up in chair early AM in bed at this time.
--- NOTE | 2016-11-29 19:55 | NUR ---
PT. RESTING IN BED WATCHING TV, BIPAP ON PER PT. REQUEST. HEP LOCK IN LW AND RH ASYMPT. LUNGS DIMINISHED BILAT, PULSE OX 97% ON 35% BIPAP. ABDOMEN SOFT, NONDISTENDED AND NORMO. NO PERIPHERAL EDEMA NOTED. RESP. EASY AND REG, NO DISTRESS. STANLEY RICKETTS, RN
--- NOTE | 2016-11-29 21:20 | NUR ---
PT. TRANSFERRED TO , ROOM 411, REPORT GIVEN TO SHANNON OSBORNE. VITAL SIGNS STABLE. ALL BELONGINGS WITH PT. PT. TALKING TO FAMILY ON TELEPHONE NOTIFYING THEM OF TRANSFER. STANLEY RICKETTS RN
--- NOTE | 2016-11-29 21:25 | NUR ---
PATIENT RECEIVED FROM [facility]. HE C/O OF STOMACH PAIN WHICH HE RATES A 5-6. HE IS ALERT/ORIENTED X3. PLEASANT AND COOPERATIVE WITH CARE. ON 5L NC AT THIS TIME. FINE RALES NOTED. HRR IN 70S. ANTIBIOTIC INFUSING. CALL LIGHT IN REACH. WILL MONITOR.
--- NOTE | 2016-11-29 21:31 | NUR ---
PT. GIVN RESTORIL AT 2103 ORDERED PER PT REQUEST. STANLEY RICKETTS RN
[2016-11-30] VITALS: BP 96/57
--- NOTE | 2016-11-30 02:35 | NUR ---
PATIENT SLEEPING COMFORTABLY. ON BIPAP AT THIS TIME SETTINGS 16/10 35%. RESPIRATIONS EASY/REGULAR, NO SXS OF DISTRESS. CALL LIGGHT IS IN REACH. WILL MONITOR.
[2016-11-30 06:21] LABS: HEMATOCRIT 25.6 % (42.0-52.0); HEMOGLOBIN 7.3 g/dl (14.0-18.0); MEAN CELL VOLUME 80.3 fl (80.0-94.0); MEAN CORPUSCULAR HGB 22.9 pg (27.0-31.0); MEAN CORPUSCULAR HGB CONC 28.5 g/dl (33.0-37.0); MEAN PLATELET VOLUME 10.5 fl (9.6-12.3); NUCLEATED RED BLOOD CELL 0.1 10*3/uL (0.0-0.0); NUCLEATED RED BLOOD CELL 0.4 % (0.0-0.0); PLATELET COUNT AUTOMATED 348 10*3/uL (130-400); RED BLOOD COUNT 3.19 10*6/uL (4.50-5.90); RED CELL DISTRI WIDTH 17.1 % (0-14.5); WHITE BLOOD COUNT 19.2 10*3/uL (4.8-10.8)
[2016-11-30 06:46] LABS: CREATININE 1.67 mg/dL (0.70-1.30); POTASSIUM 3.8 mmol/L (3.5-5.1)
--- NOTE | 2016-11-30 06:52 | NUR ---
SLEPT T/O SHIFT. CURRENTLY ON BIPAP. RESPIRATIONS EASY/REG. NO VOICED COMPLAINTS. CALL LIGHT IN REACH.
[2016-11-30 06:54] LABS: MICROCYTOSIS SLIGHT; OVALOCYTES FEW; PLATELET SUFFICIENCY NORMAL (NORMAL); POLYCHROMASIA SLIGHT; TOTAL CELLS COUNTED 100 #CELLS
[2016-11-30 08:00] VITALS: BP 114/52
--- NOTE | 2016-11-30 08:00 | NUR ---
PATIENT RESTING IN BED. PATIENT VOICES NO COMPLAINTS. BED IS IN LOW POSITION. CALL LIGHT WITHIN REACH.
--- NOTE | 2016-11-30 08:49 | NUR ---
Shift chart check completed.
--- NOTE | 2016-11-30 09:00 | NUR ---
Senior Tax Specialist in to talk to patient. Patient states lives at home with . There are few steps in the home. Physician: glenda [facility]acy: [facility] Home health services: none Patient's level of ADLs: INDEPENDENT Patient has working utilities: all working DME: home oxygen at night from [facility] emergency department Follow-up physician's appointment after d/c: will be made by hospitalist nurse director upon discharge Does patient want to access PORTAL?: no Discharge plan discussed with patient, patient lives at home with , states he is independent in adls and ambulation, he has home oxygen he uses a night from [facility] emergency department. discussed a discharge plan with patient including a short term fci and patient refused, stated he was going back home, also discussed VNA and he also refused this, patient stated that he was going home and his could help him with whatever he needed. case management will follow. EVA SCHOFIELD
[2016-11-30 12:00] VITALS: BP 122/78
--- NOTE | 2016-11-30 12:40 | NUR ---
PHYSICAL THERAPY Patient on BiPap at this time. Chrissie Nichols,PT
--- NOTE | 2016-11-30 14:34 | NUR ---
PHYSICAL THERAPY Patient evaluated on 4, full evaluation to follow. Continue with PT as per plan of care with fall, , SATS DROP and acute debility precautions. PAtient refuss SNF, will require 24/7 home family assist and complete home health services. PAtient is moderate complexity via chart review, tests and evaluation: 83147. Thank you for this referral. Chrissie Nichols,PT
[2016-11-30 16:00] VITALS: BP 144/67
[2016-11-30 20:00] VITALS: BP 124/57
--- NOTE | 2016-11-30 21:29 | NUR ---
PT REQUESTED MEDICATION FOR INSOMNIA. RESTORIL WAS GIVEN.
--- NOTE | 2016-11-30 22:16 | NUR ---
RESTORIL EFFECTIVE. PT IN BED SLEEPING.
[2016-12-01] VITALS: BP 115/62
[2016-12-01 06:08] LABS: HEMATOCRIT 26.1 % (42.0-52.0); HEMOGLOBIN 7.4 g/dl (14.0-18.0); MEAN CELL VOLUME 80.8 fl (80.0-94.0); MEAN CORPUSCULAR HGB 22.9 pg (27.0-31.0); MEAN CORPUSCULAR HGB CONC 28.4 g/dl (33.0-37.0); MEAN PLATELET VOLUME 10.7 fl (9.6-12.3); NUCLEATED RED BLOOD CELL 0.1 10*3/uL (0.0-0.0); NUCLEATED RED BLOOD CELL 0.3 % (0.0-0.0); PLATELET COUNT AUTOMATED 398 10*3/uL (130-400); RED BLOOD COUNT 3.23 10*6/uL (4.50-5.90); RED CELL DISTRI WIDTH 17.3 % (0-14.5); WHITE BLOOD COUNT 17.4 10*3/uL (4.8-10.8)
[2016-12-01 06:38] LABS: CREATININE 1.62 mg/dL (0.70-1.30); POTASSIUM 3.9 mmol/L (3.5-5.1)
[2016-12-01 06:40] LABS: TOTAL CELLS COUNTED 100 #CELLS
[2016-12-01 06:41] LABS: OVALOCYTES FEW; PLATELET SUFFICIENCY NORMAL (NORMAL); POLYCHROMASIA SLIGHT
[2016-12-01 08:00] VITALS: BP 124/58
--- NOTE | 2016-12-01 08:00 | NUR ---
PATIENT RESTING IN BED. VOICES NO COMPLAINTS AT THIS TIME. BED IS IN LOW POSITION. CALL LIGHT IS WITHIN REACH.
--- NOTE | 2016-12-01 09:00 | NUR ---
case management visits with patient, patient denies any home needs at this time
--- NOTE | 2016-12-01 10:45 | NUR ---
PHYSICAL THERAPY Patrick was seen this AM for his therapy session. Said no, not this morning. [facility] PHYSICAL THERAPIST.
--- NOTE | 2016-12-01 11:50 | NUR ---
PHYSICAL THERAPY Pnt was seen by PT for 23' of 1:1 therapy this am. Neuro-ed including side stepping, retro walking, turns, eyes closed static standing, box step clockwise and counter clockwise all with contact guard assist. Gait with contact guard 60'x 1; 100'x 1. Educated pnt in increasing step length for more functional pattern and energy conservation. 3 rest periods required d/t SOB to complete session. Continues to have issues with decreased dynamic balance and unsafe to ambulate without assist. Will continue to follow adding stair negotiation as able. Lanette Mccain, PT
[2016-12-01 12:00] VITALS: BP 122/54
--- NOTE | 2016-12-01 15:11 | NUR ---
Patient soundly sleeping. OTR will recheck at another date. Lilibeth Remy OTR/L
[2016-12-01 16:00] VITALS: BP 121/64
[2016-12-01 20:00] VITALS: BP 157/71
[2016-12-02] VITALS: BP 143/64
--- NOTE | 2016-12-02 01:34 | NUR ---
PT WOKE UP, PULLED OFF BIPAP. FOUND SITTING UP AT EDGE OF BED. CONFUSED. DID NOT KNOW WHERE HE WAS OR WHY HE WAS IN THE HOSPITAL. APPLIED 02 NC WHILE GETTING HIM BACK INTO BED. ONCE COMFORTABLE AND REORINTED BIPAP WAS REAPPLIED. BP 173/85, HR 70, O2 WITH NC 91%. FOLLOWED COMMANDS EASILY. NO AGGITATION. NOTIFIED . NO NEW ORDERS. WILL CONTINUE TO MONITOR.
[2016-12-02 06:15] LABS: HEMATOCRIT 25.6 % (42.0-52.0); HEMOGLOBIN 7.3 g/dl (14.0-18.0); MEAN CELL VOLUME 82.3 fl (80.0-94.0); MEAN CORPUSCULAR HGB 23.5 pg (27.0-31.0); MEAN CORPUSCULAR HGB CONC 28.5 g/dl (33.0-37.0); MEAN PLATELET VOLUME 10.4 fl (9.6-12.3); NUCLEATED RED BLOOD CELL 0.1 10*3/uL (0.0-0.0); NUCLEATED RED BLOOD CELL 0.4 % (0.0-0.0); PLATELET COUNT AUTOMATED 431 10*3/uL (130-400); RED BLOOD COUNT 3.11 10*6/uL (4.50-5.90); RED CELL DISTRI WIDTH 17.2 % (0-14.5); WHITE BLOOD COUNT 19.5 10*3/uL (4.8-10.8)
[2016-12-02 06:37] LABS: TOTAL CELLS COUNTED 100 #CELLS
[2016-12-02 06:39] LABS: PLATELET SUFFICIENCY HIGH (NORMAL)
[2016-12-02 06:40] LABS: OVALOCYTES FEW
[2016-12-02 06:47] LABS: BUN 47 mg/dl (7-24); CHLORIDE 109 mmol/L (98-107); CREATININE 1.42 mg/dL (0.70-1.30); POTASSIUM 4.1 mmol/L (3.5-5.1); SODIUM 148 mmol/L (136-145)
--- NOTE | 2016-12-02 07:51 | NUR ---
PT AWAKE AND ORIENTED. HAS RECOLLECTION OF EVENT LAST NIGHT.
[2016-12-02 08:00] VITALS: BP 124/66
--- NOTE | 2016-12-02 08:28 | NUR ---
AT 0648 PT TAKEN OFF BIPAP AND PLACED ON 3LNC PT IN NO DISTRESS
--- NOTE | 2016-12-02 10:16 | NUR ---
PHYSICAL THERAPY Patient presented to therapy supine in bed and with report of not sleeping well last night. Patient performed Supine to sitting at EOB with Supervision and sit to stand with CGA X 1. Patient performed gait without Assistive Device and CGA X 1 for 60' x 2. Patient then performed seated ther ex in all planes of mvmt. x 20 reps each. Patient was left in seated postion with call light within reach. Patient was 1:1 with this DAIRY MANAGER for 25 min total. Gilmer Mccloud DAIRY MANAGER
[2016-12-02 12:00] VITALS: BP 122/58
--- NOTE | 2016-12-02 12:34 | NUR ---
BLOOD TRANSFUSION STARTED AT THIS TIME.
--- NOTE | 2016-12-02 13:29 | NUR ---
PHYSICAL THERAPY Patient was recieving a blood transfusion at this time. Gilmer Mccloud COMPUTER SCIENCE PROFESSOR
--- NOTE | 2016-12-02 15:15 | NUR ---
PT RECEIVED TYLENOL FOR HEADACHE. PAIN LEVEL RATED 4/10.
[2016-12-02 16:00] VITALS: BP 126/58
--- NOTE | 2016-12-02 16:00 | NUR ---
PT STATES HEADACHE HAS RESOLVED POST TYLENOL ADMINISTRATION.
[2016-12-02 18:08] LABS: HEMOGLOBIN 9.3 g/dl (14.0-18.0); MEAN CELL VOLUME 82.7 fl (80.0-94.0); MEAN CORPUSCULAR HGB 23.6 pg (27.0-31.0); MEAN CORPUSCULAR HGB CONC 28.5 g/dl (33.0-37.0); MEAN PLATELET VOLUME 10.3 fl (9.6-12.3); NUCLEATED RED BLOOD CELL 0.1 10*3/uL (0.0-0.0); NUCLEATED RED BLOOD CELL 0.4 % (0.0-0.0); PLATELET COUNT AUTOMATED 543 10*3/uL (130-400); RED BLOOD COUNT 3.94 10*6/uL (4.50-5.90); RED CELL DISTRI WIDTH 16.9 % (0-14.5); WHITE BLOOD COUNT 25.8 10*3/uL (4.8-10.8)
[2016-12-02 18:10] LABS: HEMATOCRIT 32.6 % (42.0-52.0)
[2016-12-02 18:31] LABS: TOTAL CELLS COUNTED 100 #CELLS
[2016-12-02 18:32] LABS: OVALOCYTES FEW; POLYCHROMASIA SLIGHT
[2016-12-02 18:34] LABS: PLATELET SUFFICIENCY HIGH (NORMAL)
[2016-12-02 20:00] VITALS: BP 111/61; BP 123/59; BP 132/60
--- NOTE | 2016-12-02 20:43 | NUR ---
PATIENT IS RESTING COMFORTABLY IN BED. PATIENT DENIES ANY SOB AT THIS TIME, BUT DOES HAVE SOB ON EXERTION. HOB IS ELEVATED AND CALL LIGHT IS WITHIN REACH. PATIENT HAS NO FURTHER REQUESTS AT THIS TIME, SEE SHIFT ASSESSMENT.
[2016-12-03] VITALS: BP 118/63
--- NOTE | 2016-12-03 01:20 | NUR ---
PATIENT IS RESTING IN BED. BREATHING HAS BEEN UNLABORED AND EASY THROUGH THE EVENING. PATIENT IS RECEIVING 3 LPM VIA NC. PATIENT DENIES ANY PAIN AT THIS TIME, AND HAS NO FURTHER REQUESTS. CALL LIGHT IS WITHIN REACH. SEE SHIFT ASSESSMENT.
--- NOTE | 2016-12-03 04:00 | NUR ---
PT SLEEPING IN BED WITH BYPAP IN USE. RESP-EASY AND REGULAR. CALL LIGHT IN REACH.
[2016-12-03 06:14] LABS: HEMATOCRIT 28.9 % (42.0-52.0); HEMOGLOBIN 8.4 g/dl (14.0-18.0); MEAN CELL VOLUME 82.3 fl (80.0-94.0); MEAN CORPUSCULAR HGB 23.9 pg (27.0-31.0); MEAN CORPUSCULAR HGB CONC 29.1 g/dl (33.0-37.0); MEAN PLATELET VOLUME 10.4 fl (9.6-12.3); NUCLEATED RED BLOOD CELL 0.1 10*3/uL (0.0-0.0); NUCLEATED RED BLOOD CELL 0.3 % (0.0-0.0); PLATELET COUNT AUTOMATED 479 10*3/uL (130-400); RED BLOOD COUNT 3.51 10*6/uL (4.50-5.90); RED CELL DISTRI WIDTH 17.1 % (0-14.5); WHITE BLOOD COUNT 24.6 10*3/uL (4.8-10.8)
[2016-12-03 06:38] LABS: ALBUMIN 2.5 gm/dl (3.1-4.5); ALKALINE PHOSPHATASE 103 U/L (45-117); BUN 42 mg/dl (7-24); CHLORIDE 104 mmol/L (98-107); CREATININE 1.22 mg/dL (0.70-1.30); POTASSIUM 4.1 mmol/L (3.5-5.1); SGOT/AST 10 IU/L (3-35); SGPT/ALT 43 U/L (12-78); SODIUM 145 mmol/L (136-145); TOTAL PROTEIN 5.6 gm/dL (6.4-8.2)
--- NOTE | 2016-12-03 06:42 | NUR ---
PATIENT IS IN THE ROOM RESTING AND USING THE BIPAP TO ASSIST WITH BREATHING, PATIENT DENIES SOB. PATIENT DENIES PAIN OR DISCOMFORT. HAS BEEN COOPERATIVE AND PLEASANT THROUGHOUT NIGHT, CALL LIGHT WITHIN REACH. SEE SHIFT ASSESSMENT.
--- NOTE | 2016-12-03 06:48 | NUR ---
NOTIFIED OF CRITICAL LAB. NOR FURTHER ORDERS AT THIS TIME.
[2016-12-03 07:33] LABS: TOTAL CELLS COUNTED 100 #CELLS
[2016-12-03 07:34] LABS: PLATELET SUFFICIENCY HIGH (NORMAL)
[2016-12-03 08:00] VITALS: BP 146/62
[2016-12-03 12:00] VITALS: BP 130/58
--- NOTE | 2016-12-03 12:50 | NUR ---
PHYSICAL THERAPY Patrick was off the floor this AM therapy visit. This PM Pt having C/O stomach pain and not wanting to go. Son present and said that he could walk his Dad to the bathroom later. TALIA GREENE FINANCIAL AID OFFICER.
--- NOTE | 2016-12-03 14:16 | NUR ---
PHYSICAL THERAPY CO-SIGN I approve of the Phyical Therapy notes written above. JOYCE MORENO PT
[2016-12-03 16:00] VITALS: BP 134/59
--- NOTE | 2016-12-03 16:19 | NUR ---
PT WAS ASSESSED FOR HOME OXGEN. HE DOES QUALIFY. PT HAS HOME O2 AT THIS TIME FOR NIGHT TIME. PT AT REST SPO2 80% RA HR 73, RR 18, BP 121/52. PT PLACED ON 2LNC PT AMBULATED TO DOOR SPO2 76-79% 2 L.N, O2 INCREASED TO 4L/M PT CONTINUED TO AMBULATE DOWN HALLWAY SPO2 74-79% 4L, INCREASED TO 5L/M PT CONTINUED TO AMBULATE SPO2 ON 5L/M 79-84% INCREASED TO 6L/M PT AMBULATED BACK TO ROOM SPO2 85-90% 6L PT AT REST ON 6L/M SPO2 90-91%, HR 72, BP 125/60, RR 20 PT HAS [facility] FOR HOME OXYGEN. [facility] NOTIFIED
--- NOTE | 2016-12-03 19:30 | NUR ---
PT. IS RESTING COMFORTABLY IN BED AT THIS TIME, WITH NO SOB NOTED. HOB IS ELEVATED, NASAL CANNULA IS ON, WITH CALL LIGHT IN REACH. SEE SHIFT ASSESSMENT.
[2016-12-03 20:00] VITALS: BP 145/65
[2016-12-04] VITALS: BP 131/65
[2016-12-04 06:58] LABS: HEMATOCRIT 28.3 % (42.0-52.0); HEMOGLOBIN 8.2 g/dl (14.0-18.0); MEAN CELL VOLUME 82.5 fl (80.0-94.0); MEAN CORPUSCULAR HGB 23.9 pg (27.0-31.0); MEAN PLATELET VOLUME 10.1 fl (9.6-12.3); NUCLEATED RED BLOOD CELL 0.1 % (0.0-0.0); PLATELET COUNT AUTOMATED 513 10*3/uL (130-400); RED BLOOD COUNT 3.43 10*6/uL (4.50-5.90); RED CELL DISTRI WIDTH 16.6 % (0-14.5); WHITE BLOOD COUNT 28.7 10*3/uL (4.8-10.8)
[2016-12-04 07:23] LABS: BASOPHILS 1 % (0-1); TOTAL CELLS COUNTED 100 #CELLS
[2016-12-04 07:24] LABS: OVALOCYTES FEW; PLATELET SUFFICIENCY HIGH (NORMAL); POLYCHROMASIA SLIGHT
[2016-12-04 08:00] VITALS: BP 138/60
--- NOTE | 2016-12-04 09:55 | NUR ---
Dr. Palacios in states pt would benefit from SNF after DC states he spoke with family regarding this.
[2016-12-04 12:00] VITALS: BP 128/58
[2016-12-04 16:00] VITALS: BP 130/54
--- NOTE | 2016-12-04 19:33 | NUR ---
PT. IS RESTING COMFORTABLY IN BED AT THIS TIME. HOB ELEVATED, NASAL CANNULA CONNECTED AND ON PT. DELIEVERING 3L. RESPIRATIONS ARE EASY AND REGULAR WITH NO DISTRESS. CALL LIGHT IS WITHIN REACH, SEE SHIFT ASSESSMENT..
[2016-12-04 20:00] VITALS: BP 141/74
[2016-12-05] VITALS: BP 129/67
[2016-12-05 06:06] LABS: HEMATOCRIT 29.1 % (42.0-52.0); HEMOGLOBIN 8.3 g/dl (14.0-18.0); MEAN CELL VOLUME 81.7 fl (80.0-94.0); MEAN CORPUSCULAR HGB 23.3 pg (27.0-31.0); MEAN CORPUSCULAR HGB CONC 28.5 g/dl (33.0-37.0); MEAN PLATELET VOLUME 10.2 fl (9.6-12.3); NUCLEATED RED BLOOD CELL 0.1 % (0.0-0.0); PLATELET COUNT AUTOMATED 537 10*3/uL (130-400); RED BLOOD COUNT 3.56 10*6/uL (4.50-5.90); RED CELL DISTRI WIDTH 16.8 % (0-14.5)
[2016-12-05 06:33] LABS: BUN 35 mg/dl (7-24); CHLORIDE 102 mmol/L (98-107); CREATININE 1.22 mg/dL (0.70-1.30); POTASSIUM 4.2 mmol/L (3.5-5.1); SODIUM 140 mmol/L (136-145)
[2016-12-05 06:58] LABS: MICROCYTOSIS SLIGHT; OVALOCYTES FEW; PLATELET SUFFICIENCY HIGH (NORMAL); TOTAL CELLS COUNTED 100 #CELLS
--- NOTE | 2016-12-05 07:50 | NUR ---
DR CAMARENA IN TO SEE PT.
[2016-12-05 08:00] VITALS: BP 132/70
--- NOTE | 2016-12-05 08:00 | NUR ---
RESTING AT SIDE OF BED, EASY RESPIRATIONS WITH SKIN W/D. ADMITS TO MILD S.O.B WITH EXERTION. DENIES CHEST PAIN AT PRESENT TIME. CALL LIGHT SYSTEM REINFORCED FOR ASSISTANCE. SEE SHIFT ASSESSMENT.
[2016-12-05 12:00] VITALS: BP 126/55
[2016-12-05 16:00] VITALS: BP 120/50
[2016-12-05 16:29] LABS: BILIRUBIN NEGATIVE (NEGATIVE); BLOOD NEGATIVE (NEGATIVE); CLARITY CLEAR (CLEAR); COLOR YELLOW (YELLOW); GLUCOSE NEGATIVE (NEGATIVE); KETONE NEGATIVE (NEGATIVE); LEUKO ESTERASE NEGATIVE (NEGATIVE); NITRITE NEGATIVE (NEGATIVE); PH 7.5 (5.0-9.0); UROBILINOGEN 0.2 E.U./dl (0.2-1.0)
[2016-12-05 16:36] LABS: YEAST TRACE
[2016-12-05 16:37] LABS: RBC 0-2 rbc/hpf (0-2)
[2016-12-05 16:38] LABS: BACTERIA TRACE
--- NOTE | 2016-12-05 18:15 | NUR ---
NO OBVIOUS CHANGES NOTED THIS SHIFT.
[2016-12-05 20:00] VITALS: BP 129/59
--- NOTE | 2016-12-05 20:00 | NUR ---
PT RESTING QUIETLY IN BED. NO C/O VOICED AT THIS TIME.
--- NOTE | 2016-12-05 22:21 | NUR ---
24 HR chart check completed.
[2016-12-06] VITALS: BP 117/67
[2016-12-06 06:09] LABS: CREATININE 1.46 mg/dL (0.70-1.30); POTASSIUM 3.9 mmol/L (3.5-5.1)
[2016-12-06 06:13] LABS: HEMATOCRIT 29.6 % (42.0-52.0); HEMOGLOBIN 8.5 g/dl (14.0-18.0); MEAN CELL VOLUME 83.9 fl (80.0-94.0); MEAN CORPUSCULAR HGB 24.1 pg (27.0-31.0); MEAN CORPUSCULAR HGB CONC 28.7 g/dl (33.0-37.0); PLATELET COUNT AUTOMATED 535 10*3/uL (130-400); RED BLOOD COUNT 3.53 10*6/uL (4.50-5.90); RED CELL DISTRI WIDTH 17.4 % (0-14.5); WHITE BLOOD COUNT 23.9 10*3/uL (4.8-10.8)
--- NOTE | 2016-12-06 06:26 | NUR ---
PT SLEPT QUIETLY IN BED THIS SHIFT. NO C/O VOICED THIS AM.
[2016-12-06 06:37] LABS: TOTAL CELLS COUNTED 100 #CELLS
[2016-12-06 06:38] LABS: MICROCYTOSIS SLIGHT; OVALOCYTES MODERATE; PLATELET SUFFICIENCY HIGH (NORMAL); POLYCHROMASIA SLIGHT; SCHISTOCYTES FEW
[2016-12-06 08:00] VITALS: BP 136/66
--- NOTE | 2016-12-06 08:59 | NUR ---
Received message through SS messaging patient and family have requested a referral be made to [facility]. Contacted Veda Guerrero and faxed referral, waiting on acceptance.
--- NOTE | 2016-12-06 10:14 | NUR ---
In to see patient, son at bedside. Discussed snf placement after discharge, provided list of skilled facilities, patient and son stated they wanted referral be made to [facility] in [place], not the one in [place]. Notified Veda to change referral to [facility]. She stated she doesn't think they have any male bed openings at [facility], but will check and get back to me. Also asked her to please check availability of Rehab suites. Will discuss with patient and family
--- NOTE | 2016-12-06 10:20 | NUR ---
In to talk with patient and son again. They stated to check availability in the followin. [facility]. [facility]. [facility] checking all three buildings for availabililty
--- NOTE | 2016-12-06 10:40 | NUR ---
Patient seen for Occupational Therapy evaluation this date on 4 with full eval to follow. Preautions include fall risk, new continuous O2 use, IV UE low complexity level 27383. Recommend SNF to enable safe return home with at [facility]. Thank you for this referral. Son and patient in agreement w/ OT evaluation. Thank you for this referral. Lilibeth Remy OTR/l
--- NOTE | 2016-12-06 11:00 | NUR ---
PHYSICAL THERAPY Patrick having breakfast will stop back later. TALIA GREENE PHYSICAL THERAPY RESIDENT.
--- NOTE | 2016-12-06 11:01 | NUR ---
PHYSICAL THERAPY Back this AM Patrick up in his bedside chair. Transfer sit/stand and standing balance CGA X 1, no LOB. Then gait total 100' X 1, CG X 1, no LOB, little verbal cues for gait, balance and his turns, Pt on 4 L o2 and did not get SOB. Pt back up in his bedside chair Son in to visit at this time. TALIA GREENE MANAGER BUSINESS SYSTEMS.
[2016-12-06 12:00] VITALS: BP 142/68
--- NOTE | 2016-12-06 12:24 | NUR ---
Patient has been accepted to the [facility], medicare 3 night stay complete. Patient can go when ready for discharge.
[2016-12-06] MEDS ORDERED: PROPAFENONE HC150 MG PO (14:39)
[2016-12-06] MEDS ORDERED: XARE15TA PO (14:39)
[2016-12-06] MEDS ORDERED: DOXYCYCLINE100 M3 PO (14:41)
[2016-12-06] MEDS ORDERED: PREDNISONE10 MG PO (14:41)
--- NOTE | 2016-12-06 14:55 | NUR ---
Notified pt and pt son that order for Dc received. Son states that his sister, pt daughter will be taking pt to [place]. She will be here after work to cigar packer and picker pt. Reminded son that pt will need his portable oxygen too for transport. States he will tell his sister and she can pick this up prior to coming to hospital.
--- NOTE | 2016-12-06 15:23 | NUR ---
Report called to [place].
[2016-12-06 16:00] VITALS: BP 114/50
--- NOTE | 2016-12-06 16:00 | NUR ---
Pt daughter here, states her brother is picking up oxygen.
--- NOTE | 2016-12-06 16:10 | NUR ---
Pt discharged in care of daughter with his portable oxygen intact. Discharged via wheelchair.
--- NOTE | 2016-12-07 07:56 | NUR ---
PHYSICAL THERAPY CO-SIGN I approve of the Phyical Therapy notes written above. JOYCE MORENO PT
== END 2016-12-06 16:24 | disposition other institution (70) | DRG 871 ==
LOC: ED 10:18 → ICCU 11:38 → EDHOLD 11:38 → 5E 11:46 → ICCU 11-28 01:24 → 4E 11-29 21:21
PROVIDERS: Family Medicine; Hospitalist; Internal Medicine; Internal Medicine Cardiovascular Disease; Internal Medicine Critical Care Medicine; Internal Medicine Nephrology; Student in an Organized Health Care Education/Training Program; ADMIT Internal Medicine
PROC: 5A09557 Assistance with Respiratory Ventilation, Greater than 96 Consecutive Hours, Continuous Positive Airway Pressure (ICD-10-PCS; principal; 2016-11-28)
PROC: 30233N1 Transfusion of Nonautologous Red Blood Cells into Peripheral Vein, Percutaneous Approach (ICD-10-PCS; 2016-12-02)
DX: A41.9 Sepsis, unspecified organism (principal); J96.21 Acute and chronic respiratory failure with hypoxia; I13.0 Hypertensive heart and chronic kidney disease with heart failure and stage 1 through stage 4 chronic kidney disease, or unspecified chronic kidney disease; N17.9 Acute kidney failure, unspecified; J18.1 Lobar pneumonia, unspecified organism; I50.22 Chronic systolic (congestive) heart failure; E87.8 Other disorders of electrolyte and fluid balance, not elsewhere classified; J96.22 Acute and chronic respiratory failure with hypercapnia; J44.1 Chronic obstructive pulmonary disease with (acute) exacerbation; E44.1 Mild protein-calorie malnutrition; J98.11 Atelectasis; Z68.45 Body mass index [BMI] 70 or greater, adult; J44.0 Chronic obstructive pulmonary disease with (acute) lower respiratory infection; I48.0 Paroxysmal atrial fibrillation; R65.20 Severe sepsis without septic shock; I25.10 Atherosclerotic heart disease of native coronary artery without angina pectoris; F41.1 Generalized anxiety disorder; E53.8 Deficiency of other specified B group vitamins; E83.41 Hypermagnesemia; R73.9 Hyperglycemia, unspecified; R91.8 Other nonspecific abnormal finding of lung field; I70.90 Unspecified atherosclerosis; N18.3 Chronic kidney disease, stage 3 (moderate); D64.9 Anemia, unspecified; E78.00 Pure hypercholesterolemia, unspecified; N40.0 Benign prostatic hyperplasia without lower urinary tract symptoms; Z87.891 Personal history of nicotine dependence; Z99.81 Dependence on supplemental oxygen; Z79.899 Other long term (current) drug therapy; Z87.01 Personal history of pneumonia (recurrent); Z95.1 Presence of aortocoronary bypass graft; Z95.5 Presence of coronary angioplasty implant and graft; Z82.49 Family history of ischemic heart disease and other diseases of the circulatory system; Z83.6 Family history of other diseases of the respiratory system; Z79.82 Long term (current) use of aspirin; Z79.01 Long term (current) use of anticoagulants

== ENCOUNTER 2016-12-13 17:37 | Inpatient (IN) | payer MEDICARE, OTHER ==
[~2016-12-13] VITALS: Ht 182.8 cm; Wt 78.7 kg
[~2016-12-13 17:37] MED LIST changes: +DOXYCYCLINE100 M3 PO; +LASIX40 MG PO; +PROPAFENONE HC150 MG PO; +SYMB160 INH; +XARE15TA PO; +XARE20MG PO; +ZOCOR40 MG PO
[2016-12-13 18:25] VITALS: BP 122/59
[2016-12-13 18:44] LABS: HEMATOCRIT 30.9 % (42.0-52.0); HEMOGLOBIN 8.8 g/dl (14.0-18.0); MEAN CELL VOLUME 84.7 fl (80.0-94.0); MEAN CORPUSCULAR HGB 24.1 pg (27.0-31.0); MEAN CORPUSCULAR HGB CONC 28.5 g/dl (33.0-37.0); MEAN PLATELET VOLUME 10.4 fl (9.6-12.3); PLATELET COUNT AUTOMATED 437 10*3/uL (130-400); RED BLOOD COUNT 3.65 10*6/uL (4.50-5.90); RED CELL DISTRI WIDTH 18.3 % (0-14.5); WHITE BLOOD COUNT 20.5 10*3/uL (4.8-10.8)
[2016-12-13 18:54] LABS: ACT PARTIAL THROMBO TIME 23.1 SECONDS (20.8-31.5)
[2016-12-13 18:57] LABS: ALBUMIN 2.9 gm/dl (3.1-4.5); CREATININE 1.45 mg/dL (0.70-1.30); POTASSIUM 4.7 mmol/L (3.5-5.1); TOTAL PROTEIN 5.9 gm/dL (6.4-8.2)
[2016-12-13 19:01] LABS: OVALOCYTES FEW; PLATELET SUFFICIENCY HIGH (NORMAL); TOTAL CELLS COUNTED 100 #CELLS
[2016-12-13 19:31] VITALS: BP 140/59
[2016-12-13 19:40] LABS: IRON 25 ug/dL (65-175); TOTAL IRON BINDING CAPACITY 344 ug/dl (250-450)
[2016-12-13 20:08] VITALS: BP 136/70
[2016-12-13 20:25] VITALS: BP 129/54
[2016-12-13 20:42] VITALS: BP 129/54
[2016-12-13] MEDS ORDERED: PROPAFENONE HC150 MG PO (20:43)
[2016-12-13] MEDS ORDERED: Bactroban Oint22 GM T (20:46)
[2016-12-13] MEDS ORDERED: CARAFATE1 G1 PO (20:46)
[2016-12-13] MEDS ORDERED: DOXYCYCLINE100 M3 PO (20:48)
[2016-12-13] MEDS ORDERED: LASIX40 MG PO (20:48)
[2016-12-14] VITALS: BP 128/48
[2016-12-14 06:25] LABS: BASO % 0.2 % (0.0-1.0); EOS # 0.1 10*3/uL (0.0-0.4); EOS % 1.1 % (1.0-4.0); HEMATOCRIT 30.5 % (42.0-52.0); HEMOGLOBIN 8.7 g/dl (14.0-18.0); LYMPH # 1.8 10*3/uL (1.3-4.4); LYMPH % 13.9 % (27.0-41.0); MEAN CELL VOLUME 85.4 fl (80.0-94.0); MEAN CORPUSCULAR HGB 24.4 pg (27.0-31.0); MEAN CORPUSCULAR HGB CONC 28.5 g/dl (33.0-37.0); MONO # 0.7 10*3/uL (0.1-1.0); MONO % 5.7 % (3.0-9.0); NEUT # 10.1 10*3/uL (2.3-7.9); NEUT % 78.8 % (47.0-73.0); PLATELET COUNT AUTOMATED 410 10*3/uL (130-400); RED BLOOD COUNT 3.57 10*6/uL (4.50-5.90); RED CELL DISTRI WIDTH 18.4 % (0-14.5); WHITE BLOOD COUNT 12.8 10*3/uL (4.8-10.8)
[2016-12-14 06:51] LABS: BUN 23 mg/dl (7-24); CHLORIDE 97 mmol/L (98-107); CREATININE 1.08 mg/dL (0.70-1.30); POTASSIUM 4.3 mmol/L (3.5-5.1); SODIUM 142 mmol/L (136-145)
[2016-12-14 08:00] VITALS: BP 146/72
[2016-12-14 12:00] VITALS: BP 116/62
[2016-12-14] MEDS ORDERED: FEROSUL325 MG PO (12:50)
[2016-12-14 16:00] VITALS: BP 114/50
== END 2016-12-14 17:00 | disposition home or self-care (01) | DRG 812 ==
LOC: ED 17:37 → EDHOLD 18:37 → 5E 18:37
PROVIDERS: Emergency Medicine; Student in an Organized Health Care Education/Training Program; ADMIT Internal Medicine
DX: D50.9 Iron deficiency anemia, unspecified (principal); E44.0 Moderate protein-calorie malnutrition; J96.11 Chronic respiratory failure with hypoxia; I48.0 Paroxysmal atrial fibrillation; E11.22 Type 2 diabetes mellitus with diabetic chronic kidney disease; I50.32 Chronic diastolic (congestive) heart failure; E11.65 Type 2 diabetes mellitus with hyperglycemia; E83.41 Hypermagnesemia; D47.3 Essential (hemorrhagic) thrombocythemia; D72.829 Elevated white blood cell count, unspecified; N18.3 Chronic kidney disease, stage 3 (moderate); J43.9 Emphysema, unspecified; Z99.81 Dependence on supplemental oxygen; I25.10 Atherosclerotic heart disease of native coronary artery without angina pectoris; E78.00 Pure hypercholesterolemia, unspecified; N40.0 Benign prostatic hyperplasia without lower urinary tract symptoms; Z87.01 Personal history of pneumonia (recurrent); Z95.5 Presence of coronary angioplasty implant and graft; Z87.891 Personal history of nicotine dependence; Z82.49 Family history of ischemic heart disease and other diseases of the circulatory system; Z82.5 Family history of asthma and other chronic lower respiratory diseases; Z79.82 Long term (current) use of aspirin; Z79.899 Other long term (current) drug therapy; Z68.23 Body mass index [BMI] 23.0-23.9, adult

== ENCOUNTER 2016-12-16 21:13 | Inpatient (IN) | payer MEDICARE, OTHER ==
[~2016-12-16] VITALS: Ht 182.8 cm; Wt 70.8 kg
[2016-12-16] VITALS (13 sets, daily range): BP systolic 90–150; BP diastolic 33–69
--- NOTE | ~2016-12-16 | EKG ---
[place], [place] ELECTROCARDIOGRAM REPORT NAME: ARLETTE PROCTOR UNIT #: [id number] ROOM: [facility] DOCTOR: SANTOS SPEARS MD,BHAKTI BIRTHDATE: [birth year] DOS: ELECTROCARDIOGRAM TIME: 2318 hours. The electrocardiogram shows evidence of PVCs and noted to be multifocal with normal sinus rhythm, heart rate 81 beats per minute with nonspecific ST-T changes. BHAKTI GRAHAM MD CM:EKGRPT:ELECTROCARDIOGRAM REPORT 1151 1333 BHAKTI SPEARS MD
--- NOTE | ~2016-12-16 | CON ---
[place], [place] REPORT OF CONSULTATION NAME: ARLETTE PROCTOR [facility] #: [id number] UNIT #: [id number] ROOM: 509 DOCTOR: RAMIREZ DE LA ROSA DO BIRTHDATE: [birth year] DOS: 12/17/2016 ADDENDUM. PULMONARY CONSULTATION. CONSULTATION REQUESTED BY: Hospitalist service. REASON FOR CONSULTATION: Respiratory failure/COPD exacerbation. CHIEF COMPLAINT: Bradycardia, cough. HISTORY OF PRESENT ILLNESS: The patient is a 66-year-old man who was sent to the Emergency Department from due to reported bradycardia. His heart rate had reportedly dropped into the 30s. He does complain of some "just chest discomfort" and a nonproductive cough. He states that his symptoms are made worse with exertion. He states that he feels like the cough should produce something, but it is not strong enough to. He has not been taking any Mucinex. He does use oxygen at home and he has been on 4 L continuously and 2 liters at night. The patient denies any fevers or chills. Denies any blood in stools, vomiting, abdominal pain or any other symptoms. REVIEW OF SYSTEMS: CONSTITUTIONAL: The patient denies any fevers or chills. He does report some fatigue and tiredness. EYES: Denies any discharge, redness, or pain. EARS, NOSE, THROAT: Denies any sore throat, hoarseness, postnasal drainage or epistaxis. CARDIOVASCULAR: Denies any chest pain, but does complain of some discomfort. Denies any lower extremity edema. GASTROINTESTINAL: Denies any dysphagia, nausea, vomiting or diarrhea. SKIN: Denies any lesions or rash. MUSCULOSKELETAL: No acute pain, redness, or tenderness. CENTRAL NERVOUS SYSTEM: Denies dizziness, headache or diplopia. Remaining systems were reviewed and are all noted to be negative. PAST MEDICAL HISTORY: Significant for B12 deficiency, BPH, chronic respiratory failure with hypoxia, COPD, diabetes, diastolic congestive heart failure, emphysema, hyperlipidemia, iron deficiency anemia, and paroxysmal AFib. PAST SURGICAL HISTORY: History of coronary artery stent placement and history of coronary artery bypass graft. SOCIAL HISTORY: He is an ex-smoker and he quit in 1997. He does not drink or use any illicit drugs. FAMILY HISTORY: Father at age of 67 from myocardial infarction. Mother at the age of 68 and she had COPD. MEDICATIONS: From home, aspirin, diltiazem, doxycycline, Lasix, metoprolol [place], [place] REPORT OF CONSULTATION NAME[id number] UNIT #: [id number] ROOM: [facility] DOCTOR: RAMIREZ DE LA ROSA DO BIRTHDATE: [birth year] succinate, Xarelto, simvastatin, Rythmol, sucralfate, tamsulosin and Symbicort. PHYSICAL EXAMINATION: GENERAL: The patient is a 66-year-old man who appears comfortable and not in any apparent or acute distress. VITAL SIGNS: His height was reported to be 5 feet 11 inches, weight is 70.8 kilograms with a BMI of 21.2. Temperature is 98.3, pulse rate 64, respiratory rate is 20, blood pressure is 127/68. Bedside pulse oximetry is 99 and oxygen flow rate is 3 liters. HEENT: Head is atraumatic. Eyes are nonicteric. NECK: Supple. CARDIOVASCULAR: S1, S2 are audible. LUNGS: Decreased respiratory effort and some minimal wheezing occasionally, but no crackles or rales. ABDOMEN: Soft and nontender. EXTREMITIES: No edema or erythema. SKIN: No lesions or rashes. MUSCULOSKELETAL: No deformities. NERVOUS SYSTEM: Cranial nerves 2-12 are intact without any focal deficits. LABORATORY DATA: From 12/17/2016, white blood count is 9.5, hemoglobin is 8.4, hematocrit is 29.9, platelet count is 289. Sodium 140, potassium 4.1, chloride 96, carbon dioxide is 39, BUN is 18, creatinine is 1.29, estimated GFR is 55. Glucose is 110, calcium is 8.9, phosphorus is 3.7, magnesium is 2.3, total bilirubin 0.4, AST is 8 and ALT is 19, alkaline phosphatase is 739. Troponins have been negative. Total protein 5.5, albumin 2.8. Vitamin B 12 is 304. Folate is more than 24. TSH was 1.43 and free T4 is 1.48. IMAGING: Chest x-ray was read by the radiologist to show some small pleural effusions with bilateral lower lobe air space disease. IMPRESSION: 1. The patient is admitted with symptomatic bradycardia, heart rate has been in the 50s and 60s overnight since admission, please refer to Cardiology and primary care team's notes for management of bradycardia. 2. Shortness of breath and chronic obstructive pulmonary disease exacerbation. Currently, the patient has not been in severe respiratory distress. He does have some increased congestion likely due to a mucus plug. The patient will be arranged to have a bronchoscopy done on Tuesday. Meanwhile, continue current care as per primary team and Cardiology. Please attach this note to Dr. Graham's consult note and see his impression and plan of care for more detail. Thank you very much. RAMIREZ DE LA ROSA DO [place], [place] REPORT OF CONSULTATION NAME: ARLETTE PROCTOR UNIT #: [id number] ROOM: [facility] DOCTOR: RAMIREZ DE LA ROSA DO BIRTHDATE: [birth year] BHAKTI GRAHAM MD CM:CONSTR:REPORT OF CONSULTATION 1101 12/17/16 1342 interface
--- NOTE | ~2016-12-16 | CON ---
[place], [place] REPORT OF CONSULTATION NAME: ARLETTE PROCTOR [facility] #: [id number] UNIT #: [id number] ROOM: 509 DOCTOR: BHAKTI LEONARDO MD BIRTHDATE: [birth year] DOS: 12/17/2016 ADDENDUM The patient was independently seen and examined with [id number] encounter. History for the patient was then confirmed. Physical examination performed. All the labs reviewed. Assessment and management for the patient was personally done for this patient for today's assessment. The note done by the medical office scheduler was approved as well. REASON FOR CONSULTATION REQUESTED BY: Hospitalist services. REASON FOR CONSULTATION: Assess the patient's current ongoing respiratory symptoms, which has not been resolving. HISTORY OF PRESENT ILLNESS: A 66-year-old white male patient who has been admitted to this hospital previously known to me, treated for acute on chronic hypercapnic hypoxic respiratory failure with acute pneumonia involving the left lung with a small pleural fluid. The patient has been treated and transferred to the ____ nursing facility. He has been readmitted to the hospital, managed for acute anemia. The patient was given blood transfusions and back. He has been readmitted to the hospital from 12/13/2016. He has been complaining of symptoms of tightness in the chest with intermittent coughing, which has been noted moderate without any sputum expectoration. Coughing has become hard for this patient at times, but unable to expectorate sputum. He denies any symptoms of acute chest pleuritic pain. Denies symptoms of hemoptysis. Shortness of breath occurs with exertion, but in general has been improving since previous hospitalization. Denies symptoms of hemoptysis or wheezing. REVIEW OF SYSTEMS: Done by the medical office scheduler, refer to that. PAST MEDICAL HISTORY, FAMILY HISTORY, SOCIAL HISTORY, SURGICAL HISTORY: All reviewed with the patient and remains unchanged, refer to my consultation which was done on 11/28/2016 hospitalization consultation. The document has been present in the [place] [facility] for this patient for review and reference. MEDICATIONS: The current administered medication was noted as use of simvastatin, ferrous sulfate, Lasix, Carafate, Xarelto, Flomax, aspirin, IV Solu-Medrol 60 mg b.i.d., Mucinex, doxycycline and other p.r.n. medications. DRUG ALLERGIES: Noted as no known drug allergies. PHYSICAL EXAMINATION: GENERAL: A 66-year-old white male who has been currently noted awake and alert without any distress. Height of 6 feet, weight 156 pounds, BMI 21.2. VITAL SIGNS: The temperature noted normal since admission, respiratory rate of 15-21, heart rate of 64-59, blood pressure 122/73 to 121-109/60 in the last 24 hours. Pulse oxygen saturation of the patient noted on 3 liters nasal canula 99% saturation. HEENT: Without any acute abnormalities. [place], [place] REPORT OF CONSULTATION NAME: ARLETTE PROCTOR UNIT #: [id number] ROOM: [facility] DOCTOR: SANTOS SPEARS MD,BHAKTI BIRTHDATE: [birth year] NECK: Supple. CARDIOVASCULAR: S1, S2 is audible. LUNGS: Moderate reduction of the breath sounds noted in the lungs without any wheezing or crackles at the present time. ABDOMEN: Soft, nontender. EXTREMITIES: Shows minimal edema if any. CENTRAL NERVOUS SYSTEM: Cranial nerves 2-12 intact. MUSCULOSKELETAL: No deformities. SKIN: No lesions or rashes. LABORATORY DATA: CBC on admission 12/13/2016, WBC count 17.7, hemoglobin 7.9, hematocrit 28.6, platelet count 414,000. PT/PTT on 12/13/2016 normal. Stool for occult blood outpatient on 12/03/2016 was normal. CMP of the patient on 12/13/2016, BUN 26, creatinine 1.45. CO2 of 38. CBC of this morning, hemoglobin 8.4, hematocrit of 29.9, WBC count normal, platelet count was normal. CMP of the patient noted normal, BUN and creatinine was noted. Carbon dioxide was noted at 39 in the CMP. The chest x-ray of the patient that was done on 12/2016 was noted with very small pleural fluid for this patient without any gross area of acute infiltration for the patient was noted. Significant improvement in the aeration was noted as compared with the previous chest x-ray done on his last hospitalization. IMPRESSION: 1. The patient has been noted with nonproductive cough ____ chest noted with progressive resolution of chronic obstructive pulmonary disease, leukocytosis already resolved. There was no clinical suspicion of ongoing acute infection at this time was considered. 2. Anemia, which has been further investigated, most likely due to chronic disease. He has been known with history of chronic hypercapnia with metabolic alkalosis. Creatinine normal. The patient's right upper lung with chronic finding with evidence of bullous emphysema as well. The patient was also noted with severe muscular deconditioning, which has been improving gradually with current physical therapy and occupational therapy. RECOMMENDATIONS: Discontinue antibiotic completely, discontinue IV Solu-Medrol for the patient, tapering dose of prednisone. Bronchoscopy would be done for this patient on Tuesday. The n.p.o. past midnight status will be achieved from the pulmonary standpoint if necessary. The patient could be discharged to the nursing facility and the procedure could be done as an outpatient. Xarelto needs to be placed on hold for the procedure ____. In the meantime, other previous therapy, plan of management to be continued as well, usual care. Other supportive plan of management and care. [place], [place] REPORT OF CONSULTATION NAME: ARLETTE PROCTOR UNIT #: [id number] ROOM: 509 DOCTOR: BHAKTI LEONARDO MD BIRTHDATE: [birth year] BHAKTI GRAHAM MD CM:CONSTR:REPORT OF CONSULTATION 1146 12/17/16 1402 interface
--- NOTE | ~2016-12-16 | EKG ---
[place], [place] ELECTROCARDIOGRAM REPORT NAME: ARLETTE PROCTOR UNIT #: [id number] ROOM: [facility] DOCTOR: SANTOS SPEARS MD,BHAKTI BIRTHDATE: [birth year] DOS: 12/17/2016 TIME: 03:09 AM. ELECTROCARDIOGRAM REPORT Electrocardiogram shows mild sinus bradycardia with heart is 59 beats per minute. Mild elevation noted in the electrocardiogram by the voltage criteria and nonspecific ST-T changes. BHAKTI GRAHAM MD CM:EKGRPT:ELECTROCARDIOGRAM REPORT 1150 1328 BHAKTI SPEARS MD
--- NOTE | ~2016-12-16 | EKG ---
[place], [place] ELECTROCARDIOGRAM REPORT NAME: ARLETTE PROCTOR UNIT #: [id number] ROOM: 509 DOCTOR: SANTOS SPEARS MD,BHAKTI BIRTHDATE: [birth year] DOS: 12/17/2016 TIME: 1215 AM. ELECTROCARDIOGRAM REPORT Normal sinus rhythm noted. Heart is 65 beats per minute, nonspecific ST-T changes. The patient with PVCs. There were no changes of acute ischemia present. LVH by the voltage criteria was noted. BHAKTI GRAHAM MD CM:EKGRPT:ELECTROCARDIOGRAM REPORT 1149 1325 BHAKTI SPEARS MD
--- NOTE | ~2016-12-16 | CON ---
[place], [place] REPORT OF CONSULTATION NAME: ARLETTE PROCTOR [facility] #: [id number] UNIT #: [id number] ROOM: 509 DOCTOR: YOEL PETERSON MD BIRTHDATE: [birth year] DOS: 12/17/2016 HISTORY OF PRESENT ILLNESS: This is a 66-year-old -[place] man with a history of essential hypertension, coronary artery disease, and remote coronary artery bypass graft surgery with an echocardiogram couple of years ago which demonstrated an LV ejection fraction of 45-50%. He also has moderate pulmonary hypertension, hypercholesterolemia, chronic anemia, BPH and severe COPD that requires oxygen at all times. He has had diastolic heart failure as well as paroxysmal atrial fibrillation. He quit smoking a very long time and many years ago had acute renal failure requiring short term hemodialysis. He was in this hospital a few weeks ago with respiratory failure and diastolic heart failure and recovery took a long time, but he did well and was discharged. He was in the prison and apparently his pulse was found to be rather low around in the 30s and he was a little short of breath, he had very short-lived left submammary pain. He was sent to the emergency department where he was found to have a normal sinus rhythm with frequent PVCs. He has not had any dizziness or loss of consciousness and no fever or chills. HOME MEDICATIONS: Include Symbicort, Cartia 120 daily, propafenone 150 mg every 8 hours, Xarelto 15 mg daily, simvastatin 40 mg daily, furosemide 40 daily, ferrous sulfate 325 mg daily, doxycycline 100 mg b.i.d., aspirin 81 mg daily, Carafate 1 gram b.i.d., Flomax 0.4 mg daily. PHYSICAL EXAMINATION: GENERAL: This is a patient who is very pleasant, alert, oriented. He has oxygen on. He looks pale, but is only modestly tachypneic and no thyromegaly or finger clubbing is present. VITAL SIGNS: Pulse is regular at 70 with occasional irregularity. Blood pressure 104/55. NECK: JVP is normal, no bruit in the neck. CARDIOVASCULAR: There is no cardiomegaly, no murmurs are present. There is 1+ pedal edema, especially ankle edema bilaterally. CHEST: Breath sounds are severely diminished with adventitious sounds in the prolonged expiratory phase. DIAGNOSTIC DATA: Chest x-ray demonstrates small pleural effusion. LABORATORY DATA: An ECG showed normal sinus rhythm with frequent unifocal PVCs, monitor shows rare PVCs. Potassium and magnesium are fine. Hemoglobin was just of 8 grams. IMPRESSION: 1. "Bradycardia." I think this was most likely due to frequent ventricular ectopy, which is difficult to appreciate when feeling the radial pulse, namely its small volume LV contraction and this is not uncommon for the pulse to be "slow" when, in fact, heart rate is normal because of PVCs. 2. He does not have any clinical evidence of cardiac decompensation. 3. Coronary artery disease is asymptomatic. He had very slight brief lived [place], [place] REPORT OF CONSULTATION NAME: ARLETTE PROCTOR UNIT #: [id number] ROOM: 509 DOCTOR: YOEL PETERSON MD BIRTHDATE: [birth year] left submammary pain, which probably was not cardiac. I discussed this with the resident. From cardiac standpoint, he may be discharged, but he should remain on propafenone and also on Xarelto if this drug is not contraindicated. I thank you for this consult. YOEL PETERSON MD CM:CONSTR:REPORT OF CONSULTATION 1219 12/18/16 0553 interface
[~2016-12-16 21:13] MED LIST changes: +Bactroban Oint22 GM T; +FEROSUL325 MG PO
[2016-12-16 21:47] LABS: BASO % 0.2 % (0.0-1.0); EOS # 0.2 10*3/uL (0.0-0.4); EOS % 1.3 % (1.0-4.0); HEMATOCRIT 32.2 % (42.0-52.0); HEMOGLOBIN 9.1 g/dl (14.0-18.0); LYMPH # 1.7 10*3/uL (1.3-4.4); LYMPH % 12.7 % (27.0-41.0); MEAN CELL VOLUME 86.1 fl (80.0-94.0); MEAN CORPUSCULAR HGB 24.3 pg (27.0-31.0); MEAN CORPUSCULAR HGB CONC 28.3 g/dl (33.0-37.0); MEAN PLATELET VOLUME 10.3 fl (9.6-12.3); MONO # 0.8 10*3/uL (0.1-1.0); NEUT # 10.4 10*3/uL (2.3-7.9); NEUT % 79.5 % (47.0-73.0); PLATELET COUNT AUTOMATED 342 10*3/uL (130-400); RED BLOOD COUNT 3.74 10*6/uL (4.50-5.90); RED CELL DISTRI WIDTH 19.2 % (0-14.5); WHITE BLOOD COUNT 13.1 10*3/uL (4.8-10.8)
[2016-12-16 21:57] LABS: ACT PARTIAL THROMBO TIME 25.6 SECONDS (20.8-31.5); INTERNATIONAL NORM RATIO 0.9 (2.0-3.5)
[2016-12-16 22:04] LABS: ALBUMIN 3.2 gm/dl (3.1-4.5); CREATININE 1.54 mg/dL (0.70-1.30); POTASSIUM 4.8 mmol/L (3.5-5.1); TOTAL PROTEIN 6.5 gm/dL (6.4-8.2)
[2016-12-16 22:05] LABS: TROPONIN I 0.034 ng/ml (<0.045)
--- NOTE | 2016-12-16 23:05 | NUR ---
PATIENT RESTING IN BED WITH EYES CLOSED. RESPIRATIONS EASY AND REGULAR. LIGHTS DIMMED TO PROMOTE REST. FAMILY AT BEDSIDE. WILL CONTINUE TO MONITOR.
[2016-12-17] VITALS (7 sets, daily range): BP systolic 104–140; BP diastolic 55–76
--- NOTE | 2016-12-17 00:55 | NUR ---
A 66YR OLD MALE, admitted to 5E, under the services of MILLICENT Portillo DO with a diagnosis of CHEST PAIN OF UNCERTAIN ETIOLOGY AND COPD. Chief complaint is CHEST DISCOMFORT,SHORT OF BREATH,AND CONGESTION. Patient arrived via stretcher from ER. Monitor applied. Initial assessment completed. Vital signs taken and recorded. MILLICENT PORTILLO DO notified of admission to the unit. Orders received. See assessment for past medical history, medications and allergies. Patient and/or family oriented to unit 5E. visitation policy reviewed. Clothing/patient valuable form completed. DIANA THOMAS
[2016-12-17 03:20] LABS: BASO % 0.2 % (0.0-1.0); EOS # 0.1 10*3/uL (0.0-0.4); EOS % 1.5 % (1.0-4.0); HEMATOCRIT 29.9 % (42.0-52.0); HEMOGLOBIN 8.4 g/dl (14.0-18.0); LYMPH # 0.9 10*3/uL (1.3-4.4); LYMPH % 9.9 % (27.0-41.0); MEAN CELL VOLUME 85.9 fl (80.0-94.0); MEAN CORPUSCULAR HGB 24.1 pg (27.0-31.0); MEAN CORPUSCULAR HGB CONC 28.1 g/dl (33.0-37.0); MEAN PLATELET VOLUME 9.8 fl (9.6-12.3); MONO # 0.4 10*3/uL (0.1-1.0); MONO % 4.3 % (3.0-9.0); NEUT % 83.6 % (47.0-73.0); PLATELET COUNT AUTOMATED 289 10*3/uL (130-400); RED BLOOD COUNT 3.48 10*6/uL (4.50-5.90); RED CELL DISTRI WIDTH 18.9 % (0-14.5); WHITE BLOOD COUNT 9.5 10*3/uL (4.8-10.8)
[2016-12-17 03:32] LABS: ACT PARTIAL THROMBO TIME 25.7 SECONDS (20.8-31.5)
[2016-12-17 03:36] LABS: ALBUMIN 2.8 gm/dl (3.1-4.5); ALKALINE PHOSPHATASE 73 U/L (45-117); BUN 18 mg/dl (7-24); CHLORIDE 96 mmol/L (98-107); CREATININE 1.29 mg/dL (0.70-1.30); PHOSPHOROUS 3.7 mg/dL (2.5-4.9); POTASSIUM 4.1 mmol/L (3.5-5.1); SGOT/AST 8 IU/L (3-35); SGPT/ALT 19 U/L (12-78); SODIUM 140 mmol/L (136-145); TOTAL PROTEIN 5.5 gm/dL (6.4-8.2)
[2016-12-17 03:37] LABS: FREE T4 1.48 ng/dl (0.76-1.46)
--- NOTE | 2016-12-17 06:42 | NUR ---
Called and notified Dr. Palacios regarding consult. He said ok. No new orders were given at this time.
--- NOTE | 2016-12-17 06:46 | NUR ---
Called and notified Dr. Dixon regarding consult. He said ok,he would see him today.
--- NOTE | 2016-12-17 08:30 | NUR ---
Patient comes from [facility] where he was in short term rehab. Ok to return there when medically stable for discharge.
--- NOTE | 2016-12-17 09:02 | NUR ---
Patient not available for OT evaluation at this time as he is eating breakfast. OTR will attempt at a later time. Lilibeth Remy OTR/Harvinder
--- NOTE | 2016-12-17 09:46 | NUR ---
PHYSICAL THERAPY PAtient evaluated on 5, full evaluation to follow. Continue with PT as per plan of care with fall, shingles and acute debility precautons. PAtient is mdoerate complexity via chart review, tests and evaluation: 77132. Return to SNF versus home with and complete home health services for impaired mobility. Thank you for this referral. Chrissie Nichols,PT
--- NOTE | 2016-12-17 10:09 | NUR ---
Occupational [employer] evalaution completed this date on 5 with full eval to follow. Precautions include shingles and contact isolation precautions, low complexity level 17841, O2, IV UE, supervision with functioanl mobilty. Recommend returnt to SNF to complete rehab course. Thank you for this referral. Lilibeth Remy OTR/l
--- NOTE | 2016-12-17 13:23 | NUR ---
updates faxed to Jordyn at [facility] per her request for review. Patient can return there when medically stable for discharge.
--- NOTE | 2016-12-17 14:06 | NUR ---
PHYSICAL THERAPY Patrick was seen this PM 1:1 for his physical therapy session. Pt having his lunch and said no more therapy today, did not want another therapy session. TALIA [employer]EN[employer] MA[employer]GER.
[2016-12-17] MEDS ORDERED: VALTREX1000 MG PO (14:25)
--- NOTE | 2016-12-17 16:47 | NUR ---
[facility]PLOCK DISCONTINUED. DISCHARGE INSTRUCTIONS REVIEWED AND PT GIVEN PACKET TO GIVE TO [facility]CHARDS NURSE.
--- NOTE | 2016-12-17 16:50 | NUR ---
PT TRANSPORTED OUT VIA WHEELCHAIR TO PRIVATE CAR FOR TRANSPORT TO [facility] AT THIS TIME. NURSE TO NURSE REPORT GIVEN TO FELIPA AT THE FACILITY.
--- NOTE | 2016-12-20 07:47 | NUR ---
PHYSICAL THERAPY CO-SIGN I approve of the Phyical Therapy notes written above. JOYCE MORENO PT
[2016-12-21] MEDS ORDERED: DOXYCYCLINE100 M3 PO (10:13)
== END 2016-12-17 16:50 | disposition home or self-care (01) | DRG 190 ==
LOC: ED 21:13 → EDHOLD 12-17 00:31 → 5E 12-17 00:31
PROVIDERS: Emergency Medicine Emergency Medical Services; Internal Medicine; ADMIT Internal Medicine
DX: J44.1 Chronic obstructive pulmonary disease with (acute) exacerbation (principal); N17.0 Acute kidney failure with tubular necrosis; E44.0 Moderate protein-calorie malnutrition; J96.11 Chronic respiratory failure with hypoxia; I27.20 Pulmonary hypertension, unspecified; I48.0 Paroxysmal atrial fibrillation; I50.32 Chronic diastolic (congestive) heart failure; I11.0 Hypertensive heart disease with heart failure; Z99.81 Dependence on supplemental oxygen; B02.9 Zoster without complications; E11.9 Type 2 diabetes mellitus without complications; E53.8 Deficiency of other specified B group vitamins; D50.9 Iron deficiency anemia, unspecified; E78.00 Pure hypercholesterolemia, unspecified; I49.3 Ventricular premature depolarization; I25.10 Atherosclerotic heart disease of native coronary artery without angina pectoris; N40.0 Benign prostatic hyperplasia without lower urinary tract symptoms; Z82.49 Family history of ischemic heart disease and other diseases of the circulatory system; Z82.5 Family history of asthma and other chronic lower respiratory diseases; Z79.82 Long term (current) use of aspirin; Z79.899 Other long term (current) drug therapy; Z87.01 Personal history of pneumonia (recurrent); Z95.1 Presence of aortocoronary bypass graft; Z87.891 Personal history of nicotine dependence; Z68.23 Body mass index [BMI] 23.0-23.9, adult

== ENCOUNTER → 2016-12-23 | Day surgery (SDC) | payer MEDICARE, OTHER ==
[~2016-12-23] VITALS: Ht 180.3 cm; Wt 75.7 kg
[~2016-12-23] MED LIST changes: +VALTREX1000 MG PO
--- NOTE | ~2016-12-23 | PROC NOTE ---
[place], [place] PROCEDURE NOTE NAME: ARLETTE PROCTOR [facility] #: [id number] UNIT #: [id number] ROOM: DOCTOR: SANTOS SPEARS MD,BHAKTI BIRTHDATE: [birth year] DOS: 12/23/2016 PROCEDURE: Bronchoscopy. PREOPERATIVE DIAGNOSIS: Severe nonresolving cough. POSTOPERATIVE DIAGNOSES: Evidence of tracheobronchitis with minimal infection and mucus plugs for the patient in the endobronchial tree bilaterally. PROCEDURE DESCRIPTION: Informed consent obtained for the patient. The patient brought to the OR and placed in supine position. Conscious sedation administered by the Anesthesia Department. After achieving appropriate sedation, airway introduced into the mouth. Bronchoscope advanced into the airway into laryngeal area. Epiglottis and vocal cords were seen. The bronchoscope advanced to the vocal cord and into tracheal lumen. The tracheal lumen was identified without any significant secretions. Right upper, right middle, right lower, left upper, lingular lower lobe bronchi were all examined. The patient was noted with a small amount of secretion endobronchial tree with findings of acute tracheobronchitis in the airways bilaterally. The procedure was completed without difficulty. Procedure was tolerated. The patient without any complications. Postoperative findings were discussed with the patient's daughter in detail in the recovery room. Based on the bronchoscopy, no change in treatment at this time will be necessary. BHAKTI GRAHAM MD CM:PROCNOTE:PROCEDURE NOTE [id number] BHAKTI SPEARS MD
[2016-12-23 08:15] VITALS: BP 116/69
[2016-12-23 09:30] VITALS: BP 110/55
[2016-12-23 09:41] VITALS: BP 112/55
[2016-12-23 09:53] VITALS: BP 120/64
[2016-12-25 13:03] LABS: ACID FAST SMEAR Negative (.); ACID FAST SPEC PROCESSING Concentration (.)
== END | disposition home or self-care (01) ==
LOC: SDC 12-21 08:45
PROVIDERS: Internal Medicine Critical Care Medicine
DX: J40 Bronchitis, not specified as acute or chronic (principal); I25.10 Atherosclerotic heart disease of native coronary artery without angina pectoris; K21.9 Gastro-esophageal reflux disease without esophagitis; I50.30 Unspecified diastolic (congestive) heart failure; E78.5 Hyperlipidemia, unspecified; J43.9 Emphysema, unspecified; E11.22 Type 2 diabetes mellitus with diabetic chronic kidney disease; I13.0 Hypertensive heart and chronic kidney disease with heart failure and stage 1 through stage 4 chronic kidney disease, or unspecified chronic kidney disease; N18.9 Chronic kidney disease, unspecified; Z87.891 Personal history of nicotine dependence; Z79.899 Other long term (current) drug therapy; Z95.1 Presence of aortocoronary bypass graft; I48.91 Unspecified atrial fibrillation; Z79.82 Long term (current) use of aspirin; Z86.14 Personal history of Methicillin resistant Staphylococcus aureus infection; Z82.49 Family history of ischemic heart disease and other diseases of the circulatory system

== ENCOUNTER 2017-01-17 10:37 | Emergency (ER) | payer MEDICARE, OTHER ==
[~2017-01-17] VITALS: Ht 182.8 cm; Wt 77.1 kg
== END 2017-01-17 11:07 | disposition home or self-care (01) ==
LOC: ED 10:37
DX: S05.12XA Contusion of eyeball and orbital tissues, left eye, initial encounter (principal); Z79.82 Long term (current) use of aspirin; Z79.899 Other long term (current) drug therapy; Z95.1 Presence of aortocoronary bypass graft; X58.XXXA Exposure to other specified factors, initial encounter; Y93.89 Activity, other specified; Y92.89 Other specified places as the place of occurrence of the external cause; Y99.8 Other external cause status

== ENCOUNTER → 2017-02-25 | Day surgery (SDC) | payer MEDICARE, OTHER ==
[~2017-02-25] VITALS: Ht 182.8 cm; Wt 77.1 kg
--- NOTE | ~2017-02-25 | O ---
[place], [place] OPERATIVE NOTE NAME: ARLETTE PROCTOR [facility] #: [id number] UNIT #: [id number] ROOM: DOCTOR: FELIZ ARVIZU MD BIRTHDATE: [birth year] DOS: 02/25/2017 PROCEDURES: 1. Esophagogastroduodenoscopy and biopsy. 2. Colonoscopy and polypectomy. INDICATIONS: Anemia. An informed consent was obtained from the patient after indication of procedure, the alternatives and potential complications were explained to him. PROCEDURE MEDICATIONS: Sedation was administered by Anesthesiology Department. SCOPES USED: For upper endoscopy was Olympus diagnostic adult upper endoscope GIF-180. Depth of insertion was to the descending duodenum. For the colonoscopy, the scope used was Olympus adult colonoscope variable stiffness GIF-180, depth of insertion was to the cecum, which was identified by the usual landmarks with appendiceal orifice and ileocecal wall and triangular folds, in addition to transillumination in the right lower quadrant. FINDINGS: After adequate sedation, the patient was placed in left lateral decubitus position. Upper endoscopy was performed first. The scope was introduced under direct visualization through the upper esophageal sphincter into the esophagus. Esophageal mucosa appeared normal with no ulcerations or strictures. Lower esophageal sphincter was identified at 38 cm from the incisors. Normal-appearing Z-line. The stomach was then intubated. Gastric mucosa inspected. Gastritis was noted in addition to a small antral nodule, approximately 4 mm in diameter. Biopsies were obtained. Retroflexed views of the fundus showed a grade 1 small hiatal hernia. Pylorus was intubated easily. The duodenal bulb and descending duodenum were within normal range. We then proceeded with the colonoscopy. Rectal examination showed a diminished sphincter tone and no external hemorrhoids. The scope was introduced into the rectum, then advanced to the cecum with slight difficulty due to looping in the left colon. The prep was adequate. A 5 mm transverse colon polyp was identified. The polyp was removed with cold mini snare and recovered. The remaining colon mucosa appeared otherwise normal except for the presence of mild ascending colon diverticular disease. Retroflexed views in the rectum showed grade 2 internal hemorrhoids. The scope was then withdrawn after the rectum was decompressed. The patient tolerated the procedures well. IMPRESSION: 1. Small hiatal hernia. 2. Antral nodule, biopsies obtained. 3. Gastritis. 4. Normal upper GI tract otherwise. 5. Small transverse colon polyp, removed. 6. Right-sided diverticular disease. 7. Internal hemorrhoids. PLAN: We will review the histopathology reports and treat the patient [place], [place] OPERATIVE NOTE NAME: ARLETTE PROCTOR UNIT #: [id number] ROOM: DOCTOR: LUH WAY,FELIZ BIRTHDATE: [birth year] accordingly. Office followup will be scheduled in 2-3 weeks. The patient was advised to avoid aspirin and NSAIDs for the next 10 days. FELIZ ARVIZU MD CM:OPRECORD:OPERATIVE NOTE 0840 DON ARVIZU MD 02/25/1749 interface
[2017-02-25 07:34] VITALS: BP 143/76
[2017-02-25 08:37] VITALS: BP 129/59
[2017-02-25 08:52] VITALS: BP 130/65
[2017-02-25 09:07] VITALS: BP 149/68
== END ==
LOC: SDC 02-21 14:00
DX: D12.3 Benign neoplasm of transverse colon (principal); K44.9 Diaphragmatic hernia without obstruction or gangrene; K29.50 Unspecified chronic gastritis without bleeding; K57.30 Diverticulosis of large intestine without perforation or abscess without bleeding; K64.8 Other hemorrhoids; K21.9 Gastro-esophageal reflux disease without esophagitis; I25.10 Atherosclerotic heart disease of native coronary artery without angina pectoris; J43.9 Emphysema, unspecified; N18.9 Chronic kidney disease, unspecified; E11.22 Type 2 diabetes mellitus with diabetic chronic kidney disease; I13.0 Hypertensive heart and chronic kidney disease with heart failure and stage 1 through stage 4 chronic kidney disease, or unspecified chronic kidney disease; I50.9 Heart failure, unspecified; Z79.4 Long term (current) use of insulin; I25.2 Old myocardial infarction; Z95.5 Presence of coronary angioplasty implant and graft; Z82.49 Family history of ischemic heart disease and other diseases of the circulatory system; Z87.891 Personal history of nicotine dependence; K31.7 Polyp of stomach and duodenum

== ENCOUNTER 2017-04-05 11:37 | Inpatient (IN) | payer MEDICARE, OTHER ==
[2017-04-05] VITALS (7 sets, daily range): BP systolic 118–140; BP diastolic 58–72
[~2017-04-05] VITALS: Ht 182.8 cm; Wt 79.6 kg
--- NOTE | ~2017-04-05 | PR ---
[place], [place] PROGRESS NOTE [id number] UN[facility] #: [id number] ROOM: 428 DOCTOR: SANTOS SPEARS MD,BHAKTI BIRTHDATE: [birth year] DOS: 04/08/2017 SUBJECTIVE: He has a bronchoscopy done yesterday noted significant reduction and improvement in respiratory symptoms, reduction of the cough; however, the resolution noted incomplete. Denies symptoms of chest or any abdominal pain. Shortness of breath has been improving. This morning, the patient was sitting on the bed. OBJECTIVE: VITAL SIGNS: Pulse oxygen saturation was noted with that as 93%. HEENT: No acute changes. NECK: Supple. CARDIOVASCULAR: S1, S2 audible. LUNGS: Noted without any wheezing or crackles. ABDOMEN: Soft, nontender. EXTREMITIES: Without any acute edema. LABORATORY DATA: Reviewed was noted at blood pressure 146/62, heart rate of 82, respiratory rate 20, temperature normal. The culture of bronchial washing was noted normal woo. The Gram stain of yesterday reviewed and noted a few epithelial cells, moderate white blood cells, few gram-positive cocci in pairs and gram-positive bacilli. CBC, WBC count was elevated 24.0. IMPRESSION: The patient with resolving acute on chronic hypercapnic and hypoxic respiratory failure, exacerbation of chronic obstructive pulmonary disease, leukocytosis, steroid induced. PLAN OF MANAGEMENT: The patient could be considered for home discharge with necessary on the oral tapering prednisone and the antibiotics. Outpatient followup recommended in 2 weeks post-discharge. Continue oxygen supplementation. Abstinence tobacco use was encouraged. BHAKTI GRAHAM MD CM:PNTRANS 1134 [id number] BHAKTI SPEARS MD 04/09/17 0209 interface
--- NOTE | ~2017-04-05 | PROC NOTE ---
[place], [place] PROCEDURE NOTE [id number] #: [id number] ROOM: 428 DOCTOR: SANTOS SPEARS MD,BHAKTI BIRTHDATE: [birth year] DOS: 04/07/2017 PROCEDURE: Bronchoscopy. INDICATION FOR THE PROCEDURE: The procedure was done for assessment of severe nonresolving cough. The patient is already getting maximum medical therapy for exacerbation of COPD management. COMPLICATIONS: None. BLOOD LOSS: None. PROCEDURE DESCRIPTION: Informed consent obtained for the patient. He was brought to the OR. Conscious sedation was administered for this patient by the Anesthesia Department. After receiving proper sedation, airway introduced into the mouth. Bronchoscope advanced to the airway, into the laryngeal area. The vocal cords were seen. The vocal cords were moving symmetrically with movements. Bronchoscope advanced through vocal cords. Tracheal lumen noted with moderate amount of thick mucus secretion with green purulent secretion, suctioned out to the samantha level. The right upper, right middle, left upper, lingular lower bronchi were all examined. The patient noted with secretion, which was noted copious in amount and purulent secretion in the left main stem, endobronchial tree, and all other bronchial subsegments with mucus impacton cleared off. Small to moderate amount of mucus impaction noted in right upper, right middle, right lower lobe. All the secretions were suctioned out clear with the help of normal saline wash and sent for appropriate cultures. Procedure was well tolerated by the patient without any difficulty. Postoperative findings will be discussed with the patient once the patient recovers the effects of acute sedation. No immediate changes in the treatment will be necessary. BHAKTI GRAHAM MD CM:PROCNOTE:PROCEDURE NOTE 1232 2351 BHATKI SPEARS MD
--- NOTE | ~2017-04-05 | PR ---
[place], [place] PROGRESS NOTE NAME: ARLETTE PROCTOR [facility] #: [id number] UNIT #: [id number] ROOM: 428 DOCTOR: SANTOS SPEARS MDBHAKTI BIRTHDATE: [birth year] DOS: 04/07/2017 PULMONARY PROGRESS NOTE SUBJECTIVE: The patient was noted comfortable at this time, resting on his bed. He has been still noted severe cough, which noted nonproductive. Shortness of breath and wheezing of the patient remains unchanged from yesterday as well. He has been scheduled for a bronchoscopy done today. He denies symptoms of headache or diplopia. Denies symptoms of weakness in part of the body. Denies any dysuria, suprapubic pain, or hematuria. Denies abnormal skin rashes. Remaining systems were reviewed with the patient. They were noted all negative. OBJECTIVE: GENERAL: A 67-year-old male who has been currently resting on the bed. VITAL SIGNS: Vital signs of the patient was recorded in the last 24 hours is normal temperature, respiratory rate ranging between 20-17, heart rate of 76-74, and blood pressure 127/77-128/71. The pulse oxygen saturation on 3 liters nasal cannula 97% saturation recorded. HEENT: Examination shows moderate obesity. Head was atraumatic. Eyes nonicterus. NECK: Supple. CARDIOVASCULAR: S1, S2 audible. LUNGS: Noted with diffuse reduction in breath sounds with expiratory wheezing bilaterally without any crackles. ABDOMEN: Soft and nontender. Bowel sounds present. EXTREMITIES: Show mild edema of the ankles. VISIBLE SKIN: No lesions or rashes. MUSCULOSKELETAL: Without any acute deformities. LABORATORY DATA: CBC today, WBC count 26.2, hemoglobin 10.8, hematocrit 35.7, and platelet count 389,000. CMP of the patient, BUN 31, creatinine 1.31, glucose 183, and CO2 of 35. Blood culture of the patient from 04/05/2017 showed no bacterial growth. IMPRESSION: 1. The patient has been currently noted persistent ongoing severe exacerbation of chronic obstructive pulmonary disease with persistent symptoms of nonproductive cough and wheezing. 2. Leukocytosis partly combination of underlying infection as well as use of corticosteroids resulting in leukocytosis. 3. Overall debility. 4. The patient with chronic hypoxic respiratory failure as well. PLAN OF MANAGEMENT: The patient already n.p.o. past midnight for the bronchoscopy, it will be done today. Continuation of current dose of corticosteroids, bronchodilators, and oxygen supplementation. Continue medical management of hyperglycemia as well. Continue medical treatment of metabolic alkalosis. The anticoagulation was placed on hold, to be started again today after the bronchoscopy. Other plan of management of the patient as previously. [place], [place] PROGRESS NOTE NAME: ARLETTE PROCTOR UNIT #: [id number] ROOM: 428 DOCTOR: SANTOS SPEARS MD,BHAKTI BIRTHDATE: [birth year] Any modification in treatment if necessary will be done after the bronchoscopy. BHAKTI GRAHAM MD CM:ROCHELLE 1230 2351 BHAKTI SPEARS MD 04/07/17 2350 interface
--- NOTE | ~2017-04-05 | CON ---
[place], [place] REPORT OF CONSULTATION NAME: ARLETTE PROCTOR [facility] #: [id number] UNIT #: [id number] ROOM: 428 DOCTOR: SANTOS SPEARS MDBHAKTI BIRTHDATE: [birth year] DOS: 04/06/2017 PULMONARY CONSULTATION EVALUATION CHIEF COMPLAINT: The patient with increased respiratory symptom with failed outpatient treatment for exacerbation of chronic obstructive pulmonary disease. CONSULTATION REQUESTED BY: Hospitalist Services. HISTORY OF PRESENT ILLNESS: This is a 67-year-old white male who has been seen in the office about a week ago. He has been noted symptoms consistent with acute exacerbation of chronic obstructive pulmonary disease. He has been started on oral antibiotic and tapering prednisone. The patient has been taking the medications. Stated that the symptoms have been noted progressively worse after initial improvement in the symptoms. The symptoms have been noted with significant severe cough with minimal sputum expectoration most of the cough has been noted. No sputum expectoration. At home, the patient was expectorating moderate amount of sputum, which was yellowish in color. He was also noted with fatigue and tiredness as well associated symptom. Shortness of breath and wheezing was also reported with current acute symptoms. The patient denies symptoms of chest trauma or hemoptysis. REVIEW OF SYSTEMS: CONSTITUTIONAL: Fatigue and tiredness reported without symptoms of fever or chills. Fatigue was reported. EYES: Denies any burning, discharge or redness. ENT: Denies sore throat, hoarseness, otalgia, postnasal drainage or epistaxis. CARDIOVASCULAR: Denies angina pain, edema of the lower extremities or pain. GASTROINTESTINAL: Denies dysphagia, nausea, vomiting, diarrhea, abdominal pain, hematemesis, melena, hematochezia, abnormal weight loss, or dysphagia. The remaining systems were reviewed they were noted all negative. PAST MEDICAL HISTORY: 1. This patient was noted with history of advanced central emphysema and COPD. 2. Chronic hypoxic respiratory failure, use of oxygen up to 4 liters at the present time. 3. Essential hypertension. 4. Generalized anxiety disorder. 5. Pulmonary nodules which were noted benign with the previous followup CT scans. 6. Coronary artery disease. 7. History of atrial fibrillation. PAST SURGICAL HISTORY: 1. Coronary artery bypass grafting. 2. Cardiac catheterization, 3 vessel. 3. Past intubation mechanical ventilation. 4. Therapeutic bronchoscopies. 5. Short term hemodialysis for acute kidney injury, which was later resolved, [place], [place] REPORT OF CONSULTATION [facility]: [id number] UNIT #: [id number] ROOM: [facility] DOCTOR: CORINA LENOARDO MDULAM BIRTHDATE: [birth year] dialysis catheter was inserted and later on subsequently removed a couple of years ago. SOCIAL HISTORY: The patient is and lives at home. Smoking noted for the patient since teens 5 pack of cigarettes per day, which has been discontinued since 2017. Denies history of alcohol use, illicit drug use. FAMILY HISTORY: Mother at 50 years of age with complications of COPD. Father at 67 years complication of myocardial infarction. CURRENT MEDICATION: Administered the patient noted use of Xarelto, Flomax, Diamox, aspirin, Protonix, propafenone, simvastatin, DuoNeb q.4h., Mucinex 1200 mg p.o. b.i.d., and azithromycin. PHYSICAL EXAMINATION: GENERAL: This is a 67-year-old white male who has been noted currently awake and alert without any distress, using oxygen supplementation. Height 5 feet 11 inches, weight of 80 kg, BMI of 24. VITAL SIGNS: For the patient, which has been recorded since admission shows normal temperature, respiratory rate 20, heart rate of 38 is the lowest noted for the patient's highest of 65. The blood pressure 136/60-140/64. HEENT: Head was atraumatic. Eyes nonicterus. NECK: Supple. CARDIOVASCULAR: S1, S2 audible. LUNGS: Diffuse reduced breath sounds bilaterally with decreased air exchange. Scattered wheezing, no crackles. ABDOMEN: Soft, flat, nontender. EXTREMITIES: Without any acute edema. SKIN: No lesions or rashes. MUSCULOSKELETAL: Without any acute deformities. CENTRAL NERVOUS SYSTEM: Cranial nerves 2-12 intact. MUSCULOSKELETAL: Without any acute deformities. LABORATORY DATA: The patient's CMP yesterday BUN 28, creatinine 1.47, glucose 185, CO2 is 42. Lactic acid 1.4, CBC yesterday WBC count 13.7, hemoglobin 12.4, hematocrit 40.8, platelet count was normal. CMP this morning, the patient's BUN 27, creatinine 1.27, glucose 183. CO2 of 36. The CBC this morning WBC count 14,000, hemoglobin 10.9, hematocrit 35.2, platelet count remains normal. Chest x-ray, two-view that was done in the Emergency Room was noted without any acute pulmonary infiltration. Resolution previous left pleural fluid was noted. Influenza A and B, nasal washing antigens remains negative. IMPRESSION: 1. The patient will be currently admitted to the hospital. The patient with failed outpatient treatment, chronic hypoxic respiratory failure with acute tracheobronchitis, suspected mucus impaction of the airways. The patient with rule out any superimposed acute bacterial infection. 2. Bradyarrhythmia noted with history of atrial fibrillation. Heart rate noted in the 32-40. 3. The patient with acute kidney secondary to intravascular volume depletion [place], [place] REPORT OF CONSULTATION NAME: ARLETTE PROCTOR UNIT #: [id number] ROOM: [facility] DOCTOR: BHAKTI LEONARDO MD BIRTHDATE: [birth year] and decreased oral intake has been resolved completely in the last 24 hours. 4. Severe metabolic alkalosis secondary hypercarbia also noted better. The patient is getting currently Diamox. PLAN OF TREATMENT: Sputum for Gram stain and culture. Continuation of the current other treatment, holding of the Xarelto anticoagulation because of the bronchoscopy planned to be done tomorrow morning to ____ with the mucus plug and accurately diagnose the pulmonary infection if any change in antibiotic necessary. Risks and the benefits of procedure has been discussed with the patient. The bradyarrhythmia needs to be addressed by the Cardiology Service for further advice. Thank you for allowing me to participate in the care of this patient. BHAKTI GRAHAM MD CM:CONSTR:REPORT OF CONSULTATION 1529 04/07/17 0440 interface
--- NOTE | ~2017-04-05 | EKG ---
[place], [place] ELECTROCARDIOGRAM REPORT NAME: ARLETTE PROCTOR UNIT #: [id number] ROOM: 428 DOCTOR: SANTOS SPEARS MD,BHAKTI BIRTHDATE: [birth year] DOS: 04/06/2017 The electrocardiogram was done on 04/06/2017, at 10:02 a.m. Normal sinus rhythm noted. Heart rate 63 beats per minute. Voltage criteria for LVH was also considered in the chest leads. Nonspecific ST-T changes noted. BHAKTI GRAHAM MD CM:EKGRPT:ELECTROCARDIOGRAM REPORT 1543 1856 BHAKTI SPEARS MD
[2017-04-05] MEDS ORDERED: CEFUROXIME AXE250 MG PO (12:04)
[2017-04-05] MEDS ORDERED: PREDNISONE10 MG PO (12:04)
[2017-04-05 12:47] LABS: BASO % 0.1 % (0.0-1.0); EOS % 0.3 % (1.0-4.0); HEMATOCRIT 40.8 % (42.0-52.0); HEMOGLOBIN 12.4 g/dl (14.0-18.0); LYMPH # 1.1 10*3/uL (1.3-4.4); LYMPH % 7.8 % (27.0-41.0); MEAN CELL VOLUME 92.7 fl (80.0-94.0); MEAN CORPUSCULAR HGB 28.2 pg (27.0-31.0); MEAN CORPUSCULAR HGB CONC 30.4 g/dl (33.0-37.0); MEAN PLATELET VOLUME 9.9 fl (9.6-12.3); MONO # 0.4 10*3/uL (0.1-1.0); MONO % 2.9 % (3.0-9.0); NEUT # 12.1 10*3/uL (2.3-7.9); NEUT % 88.5 % (47.0-73.0); PLATELET COUNT AUTOMATED 374 10*3/uL (130-400); RED CELL DISTRI WIDTH 13.2 % (0-14.5); WHITE BLOOD COUNT 13.7 10*3/uL (4.8-10.8)
[2017-04-05 13:01] LABS: ALBUMIN 3.9 gm/dl (3.1-4.5); CREATININE 1.47 mg/dL (0.70-1.30); TOTAL PROTEIN 7.5 gm/dL (6.4-8.2)
[2017-04-05] MEDS ORDERED: FLOMAX0.4 MG PO (15:23)
[2017-04-05] MEDS ORDERED: XARELTO20 M1 PO (15:23)
[2017-04-05] MEDS ORDERED: PROAIR HFA8.5 GM INH (15:24)
[2017-04-06] VITALS (7 sets, daily range): BP systolic 120–136; BP diastolic 42–77
[2017-04-06 06:56] LABS: HEMATOCRIT 35.2 % (42.0-52.0); HEMOGLOBIN 10.9 g/dl (14.0-18.0); MEAN CORPUSCULAR HGB 28.2 pg (27.0-31.0); MEAN PLATELET VOLUME 10.2 fl (9.6-12.3); PLATELET COUNT AUTOMATED 323 10*3/uL (130-400); RED BLOOD COUNT 3.87 10*6/uL (4.50-5.90); RED CELL DISTRI WIDTH 13.2 % (0-14.5); WHITE BLOOD COUNT 14.1 10*3/uL (4.8-10.8)
[2017-04-06 07:15] LABS: ALBUMIN 3.2 gm/dl (3.1-4.5); ALKALINE PHOSPHATASE 85 U/L (45-117); BUN 27 mg/dl (7-24); CHLORIDE 94 mmol/L (98-107); CREATININE 1.27 mg/dL (0.70-1.30); PHOSPHOROUS 3.3 mg/dL (2.5-4.9); POTASSIUM 4.4 mmol/L (3.5-5.1); SGOT/AST 7 IU/L (3-35); SGPT/ALT 19 U/L (12-78); SODIUM 137 mmol/L (136-145); TOTAL PROTEIN 6.5 gm/dL (6.4-8.2)
[2017-04-06 07:22] LABS: THYROID STIM HORMONE (HS) 0.291 uIU/ml (0.358-4.75)
[2017-04-06 07:38] LABS: PLATELET SUFFICIENCY NORMAL (NORMAL); TOTAL CELLS COUNTED 100 #CELLS
[2017-04-06 07:43] LABS: ACT PARTIAL THROMBO TIME 27.3 SECONDS (20.8-31.5); INTERNATIONAL NORM RATIO 1.1 (2.0-3.5)
[2017-04-07] VITALS (9 sets, daily range): BP systolic 116–146; BP diastolic 54–77
[2017-04-07 06:45] LABS: HEMATOCRIT 35.7 % (42.0-52.0); HEMOGLOBIN 10.8 g/dl (14.0-18.0); MEAN CORPUSCULAR HGB 27.8 pg (27.0-31.0); MEAN CORPUSCULAR HGB CONC 30.3 g/dl (33.0-37.0); MEAN PLATELET VOLUME 10.3 fl (9.6-12.3); PLATELET COUNT AUTOMATED 389 10*3/uL (130-400); RED BLOOD COUNT 3.88 10*6/uL (4.50-5.90); RED CELL DISTRI WIDTH 13.4 % (0-14.5); WHITE BLOOD COUNT 26.2 10*3/uL (4.8-10.8)
[2017-04-07 06:59] LABS: ALBUMIN 3.4 gm/dl (3.1-4.5); BUN 31 mg/dl (7-24); CHLORIDE 103 mmol/L (98-107); POTASSIUM 3.6 mmol/L (3.5-5.1); SODIUM 141 mmol/L (136-145)
[2017-04-07 07:04] LABS: ALKALINE PHOSPHATASE 85 U/L (45-117); CREATININE 1.31 mg/dL (0.70-1.30); FREE T4 1.09 ng/dl (0.76-1.46); SGOT/AST 7 IU/L (3-35); SGPT/ALT 22 U/L (12-78); TOTAL PROTEIN 6.6 gm/dL (6.4-8.2)
[2017-04-07 07:34] LABS: OVALOCYTES FEW; PLATELET SUFFICIENCY NORMAL (NORMAL); TOTAL CELLS COUNTED 100 #CELLS
[2017-04-08 00:07] VITALS: BP 134/56
[2017-04-08 06:47] LABS: HEMATOCRIT 36.7 % (42.0-52.0); MEAN CELL VOLUME 93.1 fl (80.0-94.0); MEAN CORPUSCULAR HGB 27.9 pg (27.0-31.0); MEAN PLATELET VOLUME 10.5 fl (9.6-12.3); PLATELET COUNT AUTOMATED 360 10*3/uL (130-400); RED BLOOD COUNT 3.94 10*6/uL (4.50-5.90); RED CELL DISTRI WIDTH 13.3 % (0-14.5)
[2017-04-08 07:09] LABS: TOTAL CELLS COUNTED 100 #CELLS
[2017-04-08 07:10] LABS: PLATELET SUFFICIENCY NORMAL (NORMAL)
[2017-04-08 07:15] LABS: ALBUMIN 3.1 gm/dl (3.1-4.5); ALKALINE PHOSPHATASE 78 U/L (45-117); BUN 26 mg/dl (7-24); CHLORIDE 107 mmol/L (98-107); CREATININE 1.16 mg/dL (0.70-1.30); POTASSIUM 3.8 mmol/L (3.5-5.1); SGOT/AST 9 IU/L (3-35); SGPT/ALT 18 U/L (12-78); SODIUM 143 mmol/L (136-145)
[2017-04-08 08:00] VITALS: BP 146/62
[2017-04-08] MEDS ORDERED: VIBRAMYCIN100 MG PO (13:05)
[2017-04-08] MEDS ORDERED: PREDNISONE10 MG PO (13:05)
[2017-04-08] MEDS ORDERED: METFORMIN HCL500 MG PO (13:05)
[2017-04-08] MEDS ORDERED: DULE1ARO INH (13:05)
[2017-04-08 18:07] LABS: ACID FAST SMEAR Negative (.); ACID FAST SPEC PROCESSING Concentration (.)
== END 2017-04-08 14:45 | disposition home health service (06) | DRG 682 ==
LOC: ED 11:37 → 4E 14:29 → EDHOLD 14:29 → 4E 14:35
PROVIDERS: Family Medicine; Internal Medicine; Internal Medicine Critical Care Medicine; Nurse Practitioner Family
PROC: 0BC18ZZ Extirpation of Matter from Trachea, Via Natural or Artificial Opening Endoscopic (ICD-10-PCS; principal; 2017-04-07)
PROC: 0BC68ZZ Extirpation of Matter from Right Lower Lobe Bronchus, Via Natural or Artificial Opening Endoscopic (ICD-10-PCS; principal; 2017-04-07)
PROC: 0BC38ZZ Extirpation of Matter from Right Main Bronchus, Via Natural or Artificial Opening Endoscopic (ICD-10-PCS; principal; 2017-04-07)
PROC: 0BC98ZZ Extirpation of Matter from Lingula Bronchus, Via Natural or Artificial Opening Endoscopic (ICD-10-PCS; principal; 2017-04-07)
PROC: 0BC58ZZ Extirpation of Matter from Right Middle Lobe Bronchus, Via Natural or Artificial Opening Endoscopic (ICD-10-PCS; principal; 2017-04-07)
PROC: 0BC88ZZ Extirpation of Matter from Left Upper Lobe Bronchus, Via Natural or Artificial Opening Endoscopic (ICD-10-PCS; principal; 2017-04-07)
PROC: 0BC48ZZ Extirpation of Matter from Right Upper Lobe Bronchus, Via Natural or Artificial Opening Endoscopic (ICD-10-PCS; principal; 2017-04-07)
PROC: 0BC78ZZ Extirpation of Matter from Left Main Bronchus, Via Natural or Artificial Opening Endoscopic (ICD-10-PCS; principal; 2017-04-07)
PROC: 0BCB8ZZ Extirpation of Matter from Left Lower Lobe Bronchus, Via Natural or Artificial Opening Endoscopic (ICD-10-PCS; principal; 2017-04-07)
DX: N17.0 Acute kidney failure with tubular necrosis (principal); J96.21 Acute and chronic respiratory failure with hypoxia; E87.3 Alkalosis; T17.590A Other foreign object in bronchus causing asphyxiation, initial encounter; J96.22 Acute and chronic respiratory failure with hypercapnia; J44.0 Chronic obstructive pulmonary disease with (acute) lower respiratory infection; I50.30 Unspecified diastolic (congestive) heart failure; I13.0 Hypertensive heart and chronic kidney disease with heart failure and stage 1 through stage 4 chronic kidney disease, or unspecified chronic kidney disease; J44.1 Chronic obstructive pulmonary disease with (acute) exacerbation; E11.65 Type 2 diabetes mellitus with hyperglycemia; E87.8 Other disorders of electrolyte and fluid balance, not elsewhere classified; D64.9 Anemia, unspecified; D72.810 Lymphocytopenia; D72.829 Elevated white blood cell count, unspecified; R00.1 Bradycardia, unspecified; N40.1 Benign prostatic hyperplasia with lower urinary tract symptoms; R35.0 Frequency of micturition; E78.5 Hyperlipidemia, unspecified; I48.0 Paroxysmal atrial fibrillation; T38.0X5A Adverse effect of glucocorticoids and synthetic analogues, initial encounter; F41.1 Generalized anxiety disorder; J20.9 Acute bronchitis, unspecified; X58.XXXA Exposure to other specified factors, initial encounter; K21.9 Gastro-esophageal reflux disease without esophagitis; I25.10 Atherosclerotic heart disease of native coronary artery without angina pectoris; N18.9 Chronic kidney disease, unspecified; E11.22 Type 2 diabetes mellitus with diabetic chronic kidney disease; Z71.89 Other specified counseling; Z79.899 Other long term (current) drug therapy; Z79.82 Long term (current) use of aspirin; Z95.5 Presence of coronary angioplasty implant and graft; Z95.1 Presence of aortocoronary bypass graft; Z82.49 Family history of ischemic heart disease and other diseases of the circulatory system; Z82.5 Family history of asthma and other chronic lower respiratory diseases; Z87.891 Personal history of nicotine dependence; Y92.89 Other specified places as the place of occurrence of the external cause; Z79.01 Long term (current) use of anticoagulants; Y93.89 Activity, other specified; Y99.8 Other external cause status; Z86.14 Personal history of Methicillin resistant Staphylococcus aureus infection; Z99.81 Dependence on supplemental oxygen; I25.2 Old myocardial infarction; Z87.01 Personal history of pneumonia (recurrent)

== ENCOUNTER → 2017-06-22 | Day surgery (SDC) | payer MEDICARE, OTHER ==
[~2017-06-22] VITALS: Ht 182.8 cm; Wt 79.4 kg
[~2017-06-22] MED LIST changes: +CEFUROXIME AXE250 MG PO; +DULE1ARO INH; +METFORMIN HCL500 MG PO; +PROAIR HFA8.5 GM INH; +SYMBICORT AER 160 INH; +VIBRAMYCIN100 MG PO; +XARELTO20 M1 PO
--- NOTE | ~2017-06-22 | O ---
[place], [place] OPERATIVE NOTE NAME: ARLETTE PROCTOR [facility] #: [id number] UNIT #: [id number] ROOM: DOCTOR: ARNEL GONZALEZ MD BIRTHDATE: [birth year] DOS: 06/22/2017 PREOPERATIVE DIAGNOSIS: Cataract, left eye. POSTOPERATIVE DIAGNOSIS: Cataract, left eye. OPERATION: Extracapsular cataract extraction by phacoemulsification with posterior chamber intraocular lens implantation, left eye. ANESTHESIA: Monitored standby. OPERATIVE FINDINGS AND PROCEDURE: 2% Xylocaine topical anesthetic gel was applied to the eye in the preop area. The patient was taken to the operating room and prepped and draped in the standard fashion for sterile intraocular surgery. A time out procedure was performed verifying correct patient, correct site and corrects lens with Yamil Gonzalez M.D. The operating microscope was swung into position and the lid speculum was inserted. Using a Leydi paracentesis blade, a paracentesis was made through clear cornea. Viscoelastic was used to fill the anterior chamber. Using a metal keratome a 2.4 mm self-sealing clear corneal cataract incision was made temporally at the limbus. Using a pre-bent 25 gauge cystotome needle, a standard continuous curvilinear capsulorrhexis was performed. The anterior capsule was removed with forceps. The lens nucleus was hydrodissected and phacoemulsified in the posterior chamber. Cortical material was removed with the irrigation aspiration hand piece and the posterior capsule was then polished with a curet under irrigation. The posterior chamber and capsular bag were filled with viscoelastic. A posterior chamber intraocular lens manufactured by: [employer], Model #[id number], and 26.5 diopters in strength were then inserted into the posterior chamber and within the capsular bag using the lens cartridge and injector system. Viscoelastic was removed using the irrigation aspiration handpiece. The anterior chamber was filled with balanced salt solution through the paracentesis. Both the paracentesis site and cataract incisions were hydrated with BSS and verified to be water-tight and self-sealing. Cefuroxime 1 mg/0.1 mL was injected into the anterior chamber through the paracentesis site. The incision checked to be water-tight using a Weck-Nancie sponge. The integrity of the cataract wound and ocular tension were checked. Lid speculum and drapes were removed. The patient was transferred from the operating room to the recovery room in satisfactory condition. [place], [place] OPERATIVE NOTE NAME: ARLETTE PROCTOR UNIT #: [id number] ROOM: DOCTOR: ARNEL GONZALEZ MD BIRTHDATE: [birth year] ARNEL GONZALEZ MD CM:OPRECORD:OPERATIVE NOTE 1313 1342 ARNEL GONZALEZ MD 06/22/17 1341 interface
[2017-06-22 12:14] VITALS: BP 124/48
[2017-06-22 13:02] VITALS: BP 120/51
[2017-06-22 13:15] VITALS: BP 114/61
[2017-06-22 13:32] VITALS: BP 122/55
== END | disposition home or self-care (01) ==
LOC: SDC 06-17 08:45
DX: E11.36 Type 2 diabetes mellitus with diabetic cataract (principal); H25.812 Combined forms of age-related cataract, left eye; I11.0 Hypertensive heart disease with heart failure; I50.9 Heart failure, unspecified; I25.10 Atherosclerotic heart disease of native coronary artery without angina pectoris; I25.2 Old myocardial infarction; J43.9 Emphysema, unspecified; K21.9 Gastro-esophageal reflux disease without esophagitis; Z95.1 Presence of aortocoronary bypass graft; Z95.5 Presence of coronary angioplasty implant and graft; Z87.19 Personal history of other diseases of the digestive system; Z87.891 Personal history of nicotine dependence; Z98.890 Other specified postprocedural states; Z79.899 Other long term (current) drug therapy

== ENCOUNTER → 2017-07-27 | Day surgery (SDC) | payer MEDICARE, OTHER ==
[~2017-07-27] VITALS: Ht 182.8 cm; Wt 79.4 kg
--- NOTE | ~2017-07-27 | O ---
[place], [place] OPERATIVE NOTE [id number] #: [id number] ROOM: DOCTOR: ARNEL GONZALEZ MD BIRTHDATE: [birth year] DOS: 07/27/2017 PREOPERATIVE DIAGNOSIS: Cataract, right eye. POSTOPERATIVE DIAGNOSIS: Cataract, right eye. OPERATION: Extracapsular cataract extraction by phacoemulsification with posterior chamber intraocular lens implantation, right eye. ANESTHESIA: Monitored standby. OPERATIVE FINDINGS AND PROCEDURE: 2% Xylocaine topical anesthetic gel was applied to the eye in the preop area. The patient was taken to the operating room and prepped and draped in the standard fashion for sterile intraocular surgery. A time out procedure was performed verifying correct patient, correct site and corrects lens with Yamil Gonzalez M.D. The operating microscope was swung into position and the lid speculum was inserted. Using a Leydi paracentesis blade, a paracentesis was made through clear cornea. Viscoelastic was used to fill the anterior chamber. Using a metal keratome a 2.4 mm self-sealing clear corneal cataract incision was made temporally at the limbus. Using a pre-bent 25 gauge cystotome needle, a standard continuous curvilinear capsulorrhexis was performed. The anterior capsule was removed with forceps. The lens nucleus was hydrodissected and phacoemulsified in the posterior chamber. Cortical material was removed with the irrigation aspiration hand piece and the posterior capsule was then polished with a curet under irrigation. The posterior chamber and capsular bag were filled with viscoelastic. A posterior chamber intraocular lens manufactured by: [employer], Model #[id number], and 25.5 diopters in strength were then inserted into the posterior chamber and within the capsular bag using the lens cartridge and injector system. Viscoelastic was removed using the irrigation aspiration handpiece. The anterior chamber was filled with balanced salt solution through the paracentesis. Both the paracentesis site and cataract incisions were hydrated with BSS and verified to be water-tight and self-sealing. Cefuroxime 1 mg/0.1 mL was injected into the anterior chamber through the paracentesis site. The incision checked to be water-tight using a Weck-Nancie sponge. The integrity of the cataract wound and ocular tension were checked. Lid speculum and drapes were removed. The patient was transferred from the operating room to the recovery room in satisfactory condition. [place], [place] OPERATIVE NOTE NAME: ARLETTE PROCTOR UNIT #: [id number] ROOM: DOCTOR: ARNEL GONZALEZ MD BIRTHDATE: [birth year] ARNEL GONZALEZ MD CM:OPRECORD:OPERATIVE NOTE 1110 1215 ARNEL GONZALEZ MD 07/27/17 1214 interface
[2017-07-27 10:15] VITALS: BP 130/64
[2017-07-27 11:04] VITALS: BP 117/56
[2017-07-27 11:19] VITALS: BP 115/54
[2017-07-27 11:34] VITALS: BP 122/50
== END | disposition home or self-care (01) ==
LOC: SDC 07-25 11:00
DX: E11.36 Type 2 diabetes mellitus with diabetic cataract (principal); H25.811 Combined forms of age-related cataract, right eye; K21.9 Gastro-esophageal reflux disease without esophagitis; I25.10 Atherosclerotic heart disease of native coronary artery without angina pectoris; Z95.1 Presence of aortocoronary bypass graft; Z86.14 Personal history of Methicillin resistant Staphylococcus aureus infection; J43.9 Emphysema, unspecified; I50.9 Heart failure, unspecified; I11.0 Hypertensive heart disease with heart failure; I25.2 Old myocardial infarction; Z82.49 Family history of ischemic heart disease and other diseases of the circulatory system

== ENCOUNTER → 2017-09-01 | Outpatient (CLI) | payer MEDICARE, OTHER ==
[2017-09-01 10:00] LABS: BASO # 0.1 10*3/uL (0.0-0.1); BASO % 0.8 % (0.0-1.0); EOS # 0.2 10*3/uL (0.0-0.4); EOS % 2.8 % (1.0-4.0); HEMATOCRIT 38.3 % (42.0-52.0); HEMOGLOBIN 11.6 g/dl (14.0-18.0); LYMPH # 1.7 10*3/uL (1.3-4.4); LYMPH % 21.3 % (27.0-41.0); MEAN CORPUSCULAR HGB 28.8 pg (27.0-31.0); MEAN CORPUSCULAR HGB CONC 30.3 g/dl (33.0-37.0); MEAN PLATELET VOLUME 10.2 fl (9.6-12.3); MONO # 0.6 10*3/uL (0.1-1.0); MONO % 7.1 % (3.0-9.0); NEUT # 5.4 10*3/uL (2.3-7.9); NEUT % 67.7 % (47.0-73.0); PLATELET COUNT AUTOMATED 268 10*3/uL (130-400); RED BLOOD COUNT 4.03 10*6/uL (4.50-5.90); RED CELL DISTRI WIDTH 13.2 % (0-14.5); WHITE BLOOD COUNT 7.9 10*3/uL (4.8-10.8)
[2017-09-01 10:29] LABS: CREATININE 1.58 mg/dL (0.70-1.30); POTASSIUM 4.8 mmol/L (3.5-5.1)
[2017-09-01 10:35] LABS: THYROID STIM HORMONE (HS) 2.61 uIU/ml (0.358-4.75)
== END | disposition home or self-care (01) ==
LOC: LAB 09:27
PROVIDERS: Family Medicine
DX: E11.9 Type 2 diabetes mellitus without complications (principal); E78.5 Hyperlipidemia, unspecified; D50.9 Iron deficiency anemia, unspecified

== ENCOUNTER → 2018-01-12 | Outpatient (CLI) | payer MEDICARE, OTHER ==
[~2018-01-12] MED LIST changes: +AVPAK AZITHROM250 MG PO
[2018-01-12 10:39] LABS: BASO % 0.1 % (0.0-1.0); EOS # 0.1 10*3/uL (0.0-0.4); EOS % 0.6 % (1.0-4.0); HEMATOCRIT 37.9 % (42.0-52.0); HEMOGLOBIN 11.4 g/dl (14.0-18.0); LYMPH % 7.1 % (27.0-41.0); MEAN CORPUSCULAR HGB 28.6 pg (27.0-31.0); MEAN CORPUSCULAR HGB CONC 30.1 g/dl (33.0-37.0); MEAN PLATELET VOLUME 10.1 fl (9.6-12.3); MONO # 0.4 10*3/uL (0.1-1.0); MONO % 3.1 % (3.0-9.0); NEUT # 12.1 10*3/uL (2.3-7.9); NEUT % 88.7 % (47.0-73.0); PLATELET COUNT AUTOMATED 428 10*3/uL (130-400); RED BLOOD COUNT 3.99 10*6/uL (4.50-5.90); RED CELL DISTRI WIDTH 13.3 % (0-14.5); WHITE BLOOD COUNT 13.7 10*3/uL (4.8-10.8)
== END | disposition home or self-care (01) ==
LOC: LAB 09:55
PROVIDERS: Internal Medicine
DX: D53.9 Nutritional anemia, unspecified (principal)

== ENCOUNTER 2018-01-30 12:16 | Inpatient (IN) | payer MEDICARE, OTHER ==
[~2018-01-30] VITALS: Ht 182.8 cm; Wt 83.5 kg
--- NOTE | ~2018-01-30 | EKG ---
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1950 Requested By: SAMREEN SNOW Order Number: [id number] Reading MD: Arian Holden MD Measurements Intervals [place] Rate: 70 P: 89 ID: [id number] QRS: 40 QRSD: 103 T: -5 QT: 403 QTc: 435 Interpretive Statements Wandering atrial pacemaker LVH with secondary repolarization abnormality Baseline wander in lead(s) II,III,aVF,V3,V4 Compared to ECG 12/30/2017 11:58:15 Sinus rhythm no longer present Atrial premature complex(es) no longer present Electronically Signed On 01-30-2018 17:03:42 PST by Arian Holden MD CM:EKGRPT:ELECTROCARDIOGRAM REPORT 1303 1703 SAMREEN DOMINGUEZ DRAFT REPORT SAMREEN SNOW DO
--- NOTE | ~2018-01-30 | PR ---
[place], [place] PROGRESS NOTE NAME: ARLETTE PROCTOR UNIT #: [id number] ROOM: 404 DOCTOR: BHAKTI LEONARDO MD BIRTHDATE: [birth year] DOS: 02/02/2018 SUBJECTIVE: The patient was admitted to the hospital, the patient was noted with gradual reduction and improvement of respiratory symptom. Denies symptoms of fever or chills. Denies symptoms of chest pain or hemoptysis. He has been using the rescue medication as ordered for this patient and showing gradual improvement and resolution of acute symptoms. The bacteremia that has been noted as Staph salivarius identified. The coughing has been improving. OBJECTIVE: VITAL SIGNS: For the patient which has been recorded showed normal temperature, respiratory rate 16, heart rate 69, blood pressure 120/73, pulse oxygen saturation on 3 liters nasal cannula 98% saturation. HEENT: Head was atraumatic. Eyes nonicterus. NECK: Supple. CARDIOVASCULAR: S1, S2 is audible. LUNGS: The patient was noted without any wheezing or crackles at the present time. ABDOMEN: Soft, nontender. Bowel sounds present. EXTREMITIES: No acute edema. LABORATORY DATA: The blood culture was noted on the as Staph salivarius noted sensitive to the multiple antibiotics including penicillin and vancomycin. Blood culture repeated on 01/31 showed no bacterial growth. IMPRESSION: The patient has Staph salivarius bacteremia originating from the teeth, consider very likely. Leukocytosis noted, WBC count 21,000. The patient with resolving acute exacerbation of chronic obstructive pulmonary disease. PLAN OF MANAGEMENT: Consider Infectious Disease services. The patient will benefit from use of the medication such as penicillin or Augmentin and others for this patient orally. Examination by the dentist for the patient will be recommended as an outpatient. Certainly x-rays of the jaw for the patient could be obtained to exclude any abscess formation. [place], [place] PROGRESS NOTE NAME: ARLETTE PROCTOR UNIT #: [id number] ROOM: 404 DOCTOR: BHAKTI LEONARDO MD BIRTHDATE: [birth year] BHAKTI GRAHAM MD CM:PNTRANS [id number] BHAKTI SPEARS MD 02/08/18 1036 interface
--- NOTE | ~2018-01-30 | CON ---
[place], [place] REPORT OF CONSULTATION NAME: ARLETTE PROCTOR [facility] #: [id number] UNIT #: [id number] ROOM: 404 DOCTOR: BHAKTI LEONARDO MD BIRTHDATE: [birth year] DOS: 01/31/2018 PULMONARY CONSULTATION, EVALUATION AND MANAGEMENT REASON FOR CONSULTATION: To assess the patient's current acute exacerbation and chronic obstructive pulmonary disease. HISTORY OF PRESENT ILLNESS: This is a 67-year-old white male known to me from the past with end-stage COPD, chronic hypoxic respiratory failure, has been treated recently in this hospital and discharged home for the medical management of acute exacerbation of COPD. The patient presented to the Emergency Room and admitted to the hospital on 01/30/2018. He has reported symptoms of having increased chest congestion and shortness of breath. The patient's shortness of breath has been noted worsened. The patient does have some symptoms of cough, which were noted nonproductive mild to moderate. He has been taking current corticosteroid started because of worsening of respiratory symptoms, not responding to the treatment. The symptoms of the patient have worsened significantly. The patient requiring assessment in the Emergency Room. The patient assessed in the Emergency noted with acute exacerbation of chronic obstructive pulmonary disease and admitted to the hospital for further care. He reported reduction of the respiratory symptoms. PREVIOUS THERAPY: He was also complains of wheezing with some chest congestion. Denies symptoms of hemoptysis. REVIEW OF SYSTEMS: CONSTITUTIONAL SYMPTOMS: Fatigue and tiredness noted. Denies symptoms of fever or chills. EYES: Denies any burning, redness, or tenderness. EARS, NOSE, THROAT SYMPTOMS: Denies sore throat, hoarseness, otalgia, postnasal drainage or epistaxis. CARDIOVASCULAR: Denies anginal pain, edema, or pain of the lower extremities. GASTROINTESTINAL: Denies dysphagia, nausea, vomiting, diarrhea, abdominal pain, hematemesis, melena, or hematochezia. SKIN: Denies abnormal lesions or rashes. CENTRAL NERVOUS SYSTEM: Denies dizziness, headache, diplopia or syncopal episode. General weakness was reported. Remaining systems reviewed. They were noted all negative. PAST MEDICAL HISTORY: 1. End-stage COPD with chronic hypoxic respiratory failure, use of oxygen 4 liter nasal cannula. 2. Essential hypertension. 3. Generalized anxiety disorder. 4. Benign pulmonary nodules. 5. Essential hypertension. 6. Permanent atrial fibrillation. 7. Coronary artery disease. PAST SURGICAL HISTORY: [place], [place] REPORT OF CONSULTATION NAME: ARLETTE PROCTOR [facility] #: [id number] UNIT #: [id number] ROOM: [facility] DOCTOR: BHAKTI LEONARDO MD BIRTHDATE: [birth year] 1. Coronary artery bypass graft. 2. Cardiac catheterization and coronary stents insertion. 3. Past intubation and mechanical ventilation. 4. Therapeutic bronchoscopies. 5. Insertion and removal of the dialysis catheter previously. 6. History of acute kidney requiring hemodialysis short term that were discontinued with improvement of the kidney functions in the past. SOCIAL HISTORY: The patient is and lives at home. Denies alcohol use or illicit drug use. Tobacco use reported from the younger age up to 5 pack of cigarettes per day until 2017. There was no history of alcohol use or illicit drug use. FAMILY HISTORY: The patient's father at 67 years with complication of myocardial infarction. Mother at the age of 50 years of complication of COPD. CURRENT MEDICATIONS: Administered on this hospitalization were noted use of Flomax, Xarelto, Cardizem-CD, aspirin, metoprolol tartrate, propafenone, simvastatin, IV Solu-Medrol 40 mg b.i.d., Lasix 20 mg IV b.i.d., Pulmicort Respules, DuoNeb, vancomycin, Levaquin, and other medications. DRUG ALLERGIES: The patient was noted as no known drug allergies. PHYSICAL EXAMINATION: GENERAL: A 67-year-old male patient currently noted awake and alert without any acute distress this morning of assessment, sitting on side of bed comfortably, using oxygen supplement nasal cannula. VITAL SIGNS: Height of 6 feet, weight of 184 pounds, BMI 24.9. Normal temperature since admission, respiratory rate of 18-24, heart rate 77-69, blood pressure 126/59-126/48. The pulse oxygen saturation recorded as 97% on 3 liters nasal cannula. HEENT: Examination shows head was atraumatic. Eyes nonicterus. NECK: Supple. CARDIOVASCULAR: S1, S2 is audible. LUNGS: The patient was noted with decreased breath sounds in the lungs bilaterally. ABDOMEN: The bowel sounds present. EXTREMITIES: The patient without any acute edema VISIBLE SKIN: No lesions or rashes. MUSCULOSKELETAL: Without acute deformities. CENTRAL NERVOUS SYSTEM: Cranial nerves 2-12 intact. LABORATORY DATA: CBC that was done yesterday on admission, WBC count 12.1, hemoglobin 11.7, hematocrit was normal. The lactic acid yesterday noted 1.5. CMP yesterday on admission, glucose 147, normal BUN and creatinine, AST 185.3, sodium 134. The arterial blood gas 3 liters nasal cannula yesterday, pH of 7.35, pCO2 of 65, and pO2 of 88.3. Blood culture of the aerobic bottles was noted gram-positive cocci in chains and pairs. The CMP that was done on 01/31/2018, glucose 267, BUN 22, creatinine 1.46. CBC of this morning: WBC [place], [place] REPORT OF CONSULTATION NAME: ARLETTE PROCTOR UNIT #: [id number] ROOM: [facility] DOCTOR: SANTOS SPEARS MD,[facility] BIRTHDATE: [birth year] count 13.7, hemoglobin 11.2, hematocrit 36.3, platelet count 408,000. Urinalysis that was done this morning, 5-10 wbc's with trace bacteria. Leukocyte esterase, nitrites both noted negative. Chest x-ray that was done this morning changes, severe COPD, hyperinflation of the lung. Small infiltration with the pleural fluid was suspected in the left lower lobe. Small density was also noted in the right upper lobe as well, past lingular pneumonia, which was noted as compared with the chest x-ray patient in 12/2007. The patient seemed to be resolved. IMPRESSION: 1. The patient has been currently admitted to the hospital was noted with acute pneumonia in the left lower lobe. 2. Gram-positive cocci bacteremia, pairs and chains suggestive of a differential diagnosis of Strep pneumonia versus Enterococcus species. 3. Small pleural fluid related to the current acute pneumonia is likely. 4. Failed outpatient treatment with current acute exacerbation of chronic obstructive pulmonary disease and acute chronic hypoxic respiratory failure and hypercapnic respiratory failure. 5. Acute kidney injury secondary to volume depletion. ATN for the patient to be considered as well on this admission. PLAN OF TREATMENT: Continue with current antibiotic empirically for Gram-positive cocci bacteremia and vancomycin. Follow the culture results. Continuation of the Levaquin as a second antibiotic for the medical management of acute pneumonia for management gram-positive cocci and gram-negative coverage. Bronchodilators to be continued. Continue current dose of corticosteroids. Monitor kidney function closely. Discontinuation of the Lasix because of the current acute injury with elevation of creatinine. The patient says there were no signs of acute congestive heart failure. Supportive therapy, plan of management, care plan and other treatment changes will be ordered based on the progression of illness. PA lateral chest x-ray will be done for this patient as well tomorrow to reassess the pleural fluid and progression of the pneumonia. Thank you for allowing me to participate in the care of this patient. BHAKTI GRAHAM MD CM:CONSTR:REPORT OF CONSULTATION 1024 02/01/18 0113 interface
--- NOTE | ~2018-01-30 | PR ---
[place], [place] PROGRESS NOTE NAME: ARLETTE PROCTOR UNIT #: [id number] ROOM: 404 DOCTOR: BHAKTI LEONARDO MD BIRTHDATE: [birth year] DOS: 02/01/2018 SUBJECTIVE: The patient was still complaining of shortness of breath with exertion, coughing. The patient has been decreasing. There were no symptoms of chest pain, fever or chills. Denies symptoms of nausea or vomiting. OBJECTIVE: VITAL SIGNS: For the patient recorded normal temperature, respiratory rate 18, heart rate 75, blood pressure 126/57 and 129/53. Pulse oxygen saturation recorded on nasal cannula 3 liters 94% saturation. HEENT: No acute change. CARDIOVASCULAR: S1, S2 audible. LUNGS: Moderate general reduction in breath sounds bilaterally. There were no wheezing or crackles today. ABDOMEN: Soft and nontender. Bowel sounds present. EXTREMITIES: Without any acute edema. LABORATORY DATA: CBC: WBC count 21.2 and platelet count 431,000. CMP of the patient this morning, BUN 34, creatinine 1.35, glucose 305. Echocardiogram completed yesterday, assessed with the patient, which has been dictated by Dr. Dixon. The patient's left ventricular ejection fraction was noted as 60%. IMPRESSION: Shortness of breath, which is noted multifactorial for an acute exacerbation of chronic obstructive pulmonary disease, improving. Chest x-ray done this morning does not show an acute pulmonary infiltration, which was personally reviewed. The radiology interpretation was pending at the time of dictation. Leukocytosis, mostly induced by corticosteroids. PLAN OF MANAGEMENT: Continuation of bronchodilators, oxygen supplementation, diuretics and other medical treatment for the patient. The Solu-Medrol will be continued same dose, reduction will be started once improvement in symptoms of shortness of breath, Gram-positive cocci bacteremia was also noted with pending final culture identification and sensitivity results. [place], [place] PROGRESS NOTE NAME: ARLETTE PROCTOR UNIT #: [id number] ROOM: 404 DOCTOR: BHAKTI LEONARDO MD BIRTHDATE: [birth year] BHAKTI AZIZ, MD CM:PNTRANS [id number] BHAKTI SPEARS MD 02/01/18 1350 interface
--- NOTE | ~2018-01-30 | CON ---
[place], [place] REPORT OF CONSULTATION NAME: [facility]TTE PROCTOR [id number] UNIT #: [id number] ROOM: 404 DOCTOR: MAMIE MARSHALL MD BIRTHDATE: [birth year] DOS: REASON FOR CONSULTATION: Strep salivarius bacteremia. CHIEF COMPLAINT: Shortness of breath. HISTORY OF PRESENT ILLNESS: This is a 67-year-old male with past medical history of COPD, who was recently discharged from the hospital on tapering dose of steroids and he developed acute shortness of breath with one episode of fever, chills, was admitted in the hospital and started on IV Levaquin and the next day, his blood cultures were growing GPC in chains. He was then started on vancomycin plus Levaquin. His blood cultures are now finalized as Streptococcus salivarius in 2 bottles of 2 different sets only in anaerobic bottles. He has no other hardware in his body. His blood cultures repeat from are negative for last 2 days. He is clinically stable. He is on his baseline oxygen requirement of 2 liters, which he takes at home. No shortness of breath. He feels slightly tired. ID has been consulted for recommendation for discharge antibiotics. PAST MEDICAL HISTORY: Significant for COPD, diabetes, anemia. PAST SURGICAL HISTORY: Significant for cardiac cath, colonoscopy, EGD, CABG. SOCIAL HISTORY: Nonalcoholic. No illicit drug use. Smoking, quit in 1997, before that 5-pack per day history of smoking for 40 years. FAMILY HISTORY: Father at age 67 because of IA. Mother at age 58 and she had COPD. HOME MEDICATIONS: Reviewed. ALLERGIES: No known drug allergies. REVIEW OF SYSTEMS: A 12-point review of systems has been done and pertinent negative and positive has been included in HPI, rest are noncontributory. PHYSICAL EXAMINATION: VITAL SIGNS: Noted. GENERAL: The patient is alert, oriented x 3, not in acute distress. HEENT: Atraumatic, normocephalic. PERRLA, EOMI. RESPIRATORY: Air entry bilaterally equal. Coarse crackles at left lower lung. No pleural rub. CARDIOVASCULAR: S1, S2 normal. No murmur, rubs or gallop. NEUROLOGIC: Grossly intact. EXTREMITIES: No clubbing, cyanosis. SKIN: Warm and dry. LABORATORY DATA AND IMAGING: Reviewed. ASSESSMENT: [place], [place] REPORT OF CONSULTATION NAME: ARLETTE PROCTOR [facility]: [id number] UNIT #: [id number] ROOM: 404 DOCTOR: MAMIE MARSHALL MD BIRTHDATE: [birth year] 1. Acute hypoxic respiratory failure, likely chronic obstructive pulmonary disease exacerbation. 2. Left lower lobe pleural effusion. 3. Streptococcus salivarius bloodstream infection, 2 bottles from 2 different sets drawn 5 minutes apart. PLAN: At this time, the Strep salivarius bacteremia is likely from his oral sores. His chest x-ray is not highly concerning for pneumonia. He does have left lower lung crackles and mild pleural effusion. Because of uncomplicated bloodstream infection, I am okay in changing his antibiotics to p.o. amoxicillin 500 mg t.i.d. for 11 more days to complete 14 days therapy. Thank you for your consult. Please call for any questions. Mamie Marshall MD CM:CONSTR:REPORT OF CONSULTATION 99 02/03/18 0529 interface
[2018-01-30 12:18] VITALS: BP 140/60
[2018-01-30 13:00] LABS: BASO % 0.2 % (0.0-1.0); EOS # 0.2 10*3/uL (0.0-0.4); EOS % 1.8 % (1.0-4.0); HEMATOCRIT 39.5 % (42.0-52.0); HEMOGLOBIN 11.7 g/dl (14.0-18.0); LYMPH # 0.8 10*3/uL (1.3-4.4); LYMPH % 6.5 % (27.0-41.0); MEAN CELL VOLUME 96.3 fl (80.0-94.0); MEAN CORPUSCULAR HGB 28.5 pg (27.0-31.0); MEAN CORPUSCULAR HGB CONC 29.6 g/dl (33.0-37.0); MEAN PLATELET VOLUME 9.4 fl (9.6-12.3); MONO # 0.3 10*3/uL (0.1-1.0); MONO % 2.5 % (3.0-9.0); NEUT # 10.7 10*3/uL (2.3-7.9); NEUT % 88.2 % (47.0-73.0); PLATELET COUNT AUTOMATED 380 10*3/uL (130-400); RED CELL DISTRI WIDTH 13.1 % (0-14.5); WHITE BLOOD COUNT 12.1 10*3/uL (4.8-10.8)
[2018-01-30 13:11] LABS: ACT PARTIAL THROMBO TIME 31.7 SECONDS (20.8-31.5); INTERNATIONAL NORM RATIO 1.1 (2.0-3.5)
[2018-01-30 13:17] LABS: ALBUMIN 3.1 gm/dl (3.1-4.5); ALKALINE PHOSPHATASE 108 U/L (45-117); BUN 19 mg/dl (7-24); CHLORIDE 94 mmol/L (98-107); CREATININE 1.19 mg/dL (0.70-1.30); LIPASE 81 U/L (73-393); POTASSIUM 5.3 mmol/L (3.5-5.1); SGOT/AST 15 IU/L (3-35); SGPT/ALT 34 U/L (12-78); SODIUM 134 mmol/L (136-145); TOTAL PROTEIN 7.1 gm/dL (6.4-8.2)
[2018-01-30 13:26] LABS: TROPONIN I < 0.015 ng/ml (<0.045)
[2018-01-30 14:37] VITALS: BP 114/55
[2018-01-30 15:09] LABS: ABG BASE EXCESS 8.4 mmol/L (-2.0-2.0); ABG HCO3 35.5 mmol/l (22-26); ABG O2 SATURATION 96.3 % (95-97); ARTERIAL BLOOD GAS PCO2 65.4 mmHg (35-45); ARTERIAL BLOOD GAS PH 7.354 (7.35-7.45); ARTERIAL BLOOD GAS PO2 88.3 mmHg (80-90)
[2018-01-30 16:00] VITALS: BP 135/62
[2018-01-30 20:00] VITALS: BP 122/56
[2018-01-31] VITALS: BP 126/56
[2018-01-31 06:31] LABS: HEMATOCRIT 36.3 % (42.0-52.0); HEMOGLOBIN 11.2 g/dl (14.0-18.0); MEAN CELL VOLUME 94.5 fl (80.0-94.0); MEAN CORPUSCULAR HGB 29.2 pg (27.0-31.0); MEAN CORPUSCULAR HGB CONC 30.9 g/dl (33.0-37.0); MEAN PLATELET VOLUME 9.4 fl (9.6-12.3); PLATELET COUNT AUTOMATED 408 10*3/uL (130-400); RED BLOOD COUNT 3.84 10*6/uL (4.50-5.90); RED CELL DISTRI WIDTH 13.2 % (0-14.5); WHITE BLOOD COUNT 13.7 10*3/uL (4.8-10.8)
[2018-01-31 07:00] LABS: ALBUMIN 2.8 gm/dl (3.1-4.5); CREATININE 1.46 mg/dL (0.70-1.30); FREE T4 0.97 ng/dl (0.76-1.46); PHOSPHOROUS 3.8 mg/dL (2.5-4.9); TOTAL PROTEIN 6.6 gm/dL (6.4-8.2)
[2018-01-31 07:04] LABS: THYROID STIM HORMONE (HS) 0.356 uIU/ml (0.358-4.75)
[2018-01-31 07:04] LABS: ACT PARTIAL THROMBO TIME 24.2 SECONDS (20.8-31.5)
[2018-01-31 07:08] LABS: POTASSIUM 4.2 mmol/L (3.5-5.1)
[2018-01-31 08:00] VITALS: BP 126/48
[2018-01-31 08:07] LABS: OVALOCYTES MODERATE; PLATELET SUFFICIENCY HIGH (NORMAL); TOTAL CELLS COUNTED 100 #CELLS
[2018-01-31 09:12] LABS: VITAMIN D, 25-HYDROXY 36.2 ng/mL (30-100)
[2018-01-31 09:19] LABS: BILIRUBIN NEGATIVE (NEGATIVE); BLOOD NEGATIVE (NEGATIVE); CLARITY SL CLOUDY (CLEAR); COLOR YELLOW (YELLOW); GLUCOSE 2+ (NEGATIVE); KETONE NEGATIVE (NEGATIVE); LEUKO ESTERASE NEGATIVE (NEGATIVE); NITRITE NEGATIVE (NEGATIVE); PH 5.5 (5.0-9.0); SPECIFIC GRAVITY 1.025 (1.005-1.030); UROBILINOGEN 0.2 E.U./dl (0.2-1.0)
[2018-01-31 09:42] LABS: EPITHELIAL CELLS 16-20
[2018-01-31 09:43] LABS: BACTERIA TRACE
[2018-01-31 12:00] VITALS: BP 138/42
[2018-01-31 16:00] VITALS: BP 130/62
[2018-01-31 20:00] VITALS: BP 129/53
[2018-02-01] VITALS: BP 126/57
[2018-02-01 07:31] LABS: HEMATOCRIT 34.6 % (42.0-52.0); HEMOGLOBIN 10.3 g/dl (14.0-18.0); MEAN CELL VOLUME 95.1 fl (80.0-94.0); MEAN CORPUSCULAR HGB 28.3 pg (27.0-31.0); MEAN CORPUSCULAR HGB CONC 29.8 g/dl (33.0-37.0); MEAN PLATELET VOLUME 9.4 fl (9.6-12.3); PLATELET COUNT AUTOMATED 435 10*3/uL (130-400); RED BLOOD COUNT 3.64 10*6/uL (4.50-5.90); RED CELL DISTRI WIDTH 13.4 % (0-14.5); WHITE BLOOD COUNT 21.2 10*3/uL (4.8-10.8)
[2018-02-01 07:47] LABS: ALBUMIN 2.7 gm/dl (3.1-4.5); CHLORIDE 96 mmol/L (98-107); POTASSIUM 4.1 mmol/L (3.5-5.1); SGPT/ALT 24 U/L (12-78); SODIUM 138 mmol/L (136-145)
[2018-02-01 07:50] LABS: ALKALINE PHOSPHATASE 89 U/L (45-117); BUN 34 mg/dl (7-24); CREATININE 1.35 mg/dL (0.70-1.30); SGOT/AST 9 IU/L (3-35); TOTAL PROTEIN 6.1 gm/dL (6.4-8.2)
[2018-02-01 07:52] LABS: TOTAL CELLS COUNTED 100 #CELLS
[2018-02-01 07:53] LABS: PLATELET SUFFICIENCY HIGH (NORMAL)
[2018-02-01 08:00] VITALS: BP 122/58
[2018-02-01 12:00] VITALS: BP 125/62
[2018-02-01 16:00] VITALS: BP 119/59
[2018-02-01 20:00] VITALS: BP 140/54
[2018-02-02] VITALS: BP 118/67
[2018-02-02 06:43] LABS: HEMATOCRIT 35.5 % (42.0-52.0); HEMOGLOBIN 10.8 g/dl (14.0-18.0); MEAN CELL VOLUME 95.2 fl (80.0-94.0); MEAN CORPUSCULAR HGB CONC 30.4 g/dl (33.0-37.0); MEAN PLATELET VOLUME 9.7 fl (9.6-12.3); PLATELET COUNT AUTOMATED 451 10*3/uL (130-400); RED BLOOD COUNT 3.73 10*6/uL (4.50-5.90); RED CELL DISTRI WIDTH 13.7 % (0-14.5)
[2018-02-02 07:04] LABS: TOTAL CELLS COUNTED 100 #CELLS
[2018-02-02 07:05] LABS: PLATELET SUFFICIENCY HIGH (NORMAL)
[2018-02-02 07:19] LABS: CHLORIDE 99 mmol/L (98-107); POTASSIUM 4.4 mmol/L (3.5-5.1); SODIUM 140 mmol/L (136-145)
[2018-02-02 07:27] LABS: ALBUMIN 2.7 gm/dl (3.1-4.5); ALKALINE PHOSPHATASE 81 U/L (45-117); BUN 34 mg/dl (7-24); CREATININE 1.23 mg/dL (0.70-1.30); PHOSPHOROUS 3.6 mg/dL (2.5-4.9); SGOT/AST 10 IU/L (3-35); SGPT/ALT 22 U/L (12-78); TOTAL PROTEIN 5.8 gm/dL (6.4-8.2)
[2018-02-02 11:59] VITALS: BP 121/73
[2018-02-02] MEDS ORDERED: PREDNISONE10 MG PO (14:27)
[2018-02-02] MEDS ORDERED: AMOXICILLIN500 M2 PO (14:27)
[2018-02-02 16:00] VITALS: BP 128/60
== END 2018-02-02 18:00 | disposition home or self-care (01) | DRG 871 ==
LOC: ED 12:16 → 4E 14:19 → EDHOLD 14:19 → 4E 14:29
PROVIDERS: Emergency Medicine; Family Medicine; Registered Nurse; Student in an Organized Health Care Education/Training Program
DX: A41.9 Sepsis, unspecified organism (principal); E43 Unspecified severe protein-calorie malnutrition; J96.01 Acute respiratory failure with hypoxia; J18.1 Lobar pneumonia, unspecified organism; J96.21 Acute and chronic respiratory failure with hypoxia; J44.1 Chronic obstructive pulmonary disease with (acute) exacerbation; E87.1 Hypo-osmolality and hyponatremia; I50.32 Chronic diastolic (congestive) heart failure; J44.0 Chronic obstructive pulmonary disease with (acute) lower respiratory infection; J98.11 Atelectasis; N17.9 Acute kidney failure, unspecified; D53.9 Nutritional anemia, unspecified; I71.9 Aortic aneurysm of unspecified site, without rupture; E87.5 Hyperkalemia; E87.8 Other disorders of electrolyte and fluid balance, not elsewhere classified; N40.0 Benign prostatic hyperplasia without lower urinary tract symptoms; I48.0 Paroxysmal atrial fibrillation; F41.1 Generalized anxiety disorder; R91.8 Other nonspecific abnormal finding of lung field; E78.5 Hyperlipidemia, unspecified; E53.8 Deficiency of other specified B group vitamins; E11.65 Type 2 diabetes mellitus with hyperglycemia; I25.10 Atherosclerotic heart disease of native coronary artery without angina pectoris; I11.0 Hypertensive heart disease with heart failure; E83.41 Hypermagnesemia; Z99.81 Dependence on supplemental oxygen; Z68.24 Body mass index [BMI] 24.0-24.9, adult; Z95.5 Presence of coronary angioplasty implant and graft; Z95.1 Presence of aortocoronary bypass graft; Z87.891 Personal history of nicotine dependence; Z82.5 Family history of asthma and other chronic lower respiratory diseases; Z82.49 Family history of ischemic heart disease and other diseases of the circulatory system; Z87.01 Personal history of pneumonia (recurrent); Z79.82 Long term (current) use of aspirin; Z79.899 Other long term (current) drug therapy

== ENCOUNTER 2018-02-13 13:00 | Inpatient (IN) | payer MEDICARE, OTHER ==
[~2018-02-13] VITALS: Ht 182.8 cm; Wt 95.3 kg
--- NOTE | ~2018-02-13 | EKG ---
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1950 Requested By: LIN BRYSON Order Number: [id number] Reading MD: Joseph Palacios MD Measurements Intervals [place] Rate: 100 P: [place]: QRS: 44 QRSD: 119 T: -86 QT: 342 QTc: 442 Interpretive Statements Atrial flutter with predominant 2:1 AV block LVH with secondary repolarization abnormality Artifact in lead(s) I,II,III,aVR,aVL,aVF,V2,V4,V5,V6 Compared to ECG 01/30/2018 13:03:31 Wandering atrial pacemaker no longer present Atrial-paced complex(es) or rhythm no longer present Electronically Signed On 02-18-2018 12:38:04 PST by Joseph Palacios MD CM:EKGRPT:ELECTROCARDIOGRAM REPORT 1316 1238 LIN ALVARES DRAFT REPORT LIN BRYSON M.D.
--- NOTE | ~2018-02-13 | PR ---
[place], [place] PROGRESS NOTE [id number] UNIT #: [id number] ROOM: 507 DOCTOR: BHAKTI LEONARDO MD BIRTHDATE: [birth year] DOS: 02/19/2018 PULMONARY PROGRESS NOTE SUBJECTIVE: The patient noted comfortable at this time, resting in the bed, sitting outside of the bed this morning of assessment. He had not reported any symptoms of fever or chills, chest pain or hemoptysis. Shortness of breath occurs with exertion, not present at rest. The patient has been ambulating with use of oxygen to some extent intermittently short distances. OBJECTIVE: VITAL SIGNS: Normal temperature, respiratory rate 20, heart rate 116, blood pressure 103/54 at noon. The pulse oxygen saturation on 2 liters nasal cannula 100% saturation. HEENT: Examination shows no new change. NECK: Supple. CARDIOVASCULAR: S1, S2 audible. LUNGS: Mild to moderate decreased breath sounds. There were no wheeze or crackles. ABDOMEN: Soft, nontender. EXTREMITIES: Mild edema. LABORATORY DATA: Today, glucose 221, BUN and creatinine was normal, CO2 43. IMPRESSION: 1. The patient who has been currently noted with acute chronic hypercapnic hypoxic respiratory failure. 2. Metabolic alkalosis with hypercarbia. PLAN OF MANAGEMENT: The patient will be started on Diamox for the total of 6 doses for the next couple of days. In the meantime, other therapy, plan of management continue as previously. Usual care. Supportive therapy, plan of management and care plan and therapies. [place], [place] PROGRESS NOTE NAME: [facility]E PROCTOR [facility]: [id number] UNIT #: [id number] ROOM: 507 DOCTOR: BHAKTI LEONARDO MD BIRTHDATE: [birth year] BHAKTI GRAHAM MD CM:PNTRANS [id number] BHAKTI SPEARS MD 02/19/18 3870 interface
--- NOTE | ~2018-02-13 | PR ---
[place], [place] PROGRESS NOTE NAME: [facility]E PROCTOR [facility] [id number] UNIT #: [id number] ROOM: 507 DOCTOR: SANTOS SPEARS MD,BHAKTI BIRTHDATE: [birth year] DOS: 02/17/2018 SUBJECTIVE: The patient continued to show reduction and improvement in respiratory symptom. Denies fever or chills. Coughing has been subsiding. Shortness of breath has been slowly improving. OBJECTIVE: VITAL SIGNS: Normal temperature, respiratory rate 18, heart rate 92, blood pressure 124/65. Pulse oxygen saturation recorded as 96% saturation on 3 liters nasal cannula. HEENT: Examination shows head was atraumatic. Eyes nonicterus. NECK: Supple. CARDIOVASCULAR: S1, S2 audible. LUNGS: The patient was noted without any wheeze or crackles. ABDOMEN: Soft, nontender. Bowel sounds present. EXTREMITIES: No acute edema. LABORATORY DATA: CBC: WBC count 22.9, hemoglobin 10.3, platelet count were normal. The BMP this morning, normal BUN and creatinine. IMPRESSION: Gradual, but progressive improvement and resolution noted of acute respiratory complaints progressively with exacerbation of chronic obstructive pulmonary disease, [id number]-dj-warbewd hypercapnic hypoxic respiratory failure. PLAN OF MANAGEMENT: No changes in the plan of management at this time would be necessary. Continue other therapy, plan of management, steroids. Continue to gradually decrease. BHAKTI GRAHAM MD CM:PNTRANS [id number] BHAKTI SPEARS MD 02/17/18 1627 interface
--- NOTE | ~2018-02-13 | PR ---
[place], [place] PROGRESS NOTE [id number] #: [id number] ROOM: 517 DOCTOR: SANTOS SPEARS MD,BHAKTI BIRTHDATE: [birth year] DOS: 02/20/2018 SUBJECTIVE: The patient has been reporting symptoms of general weakness and fatigue. Shortness of breath and other symptom are resolving. There were no symptoms of cough. Using the BiPAP at nighttime and p.r.n. during the day. The oxygen supplementation use at the time of non-use of BiPAP. OBJECTIVE: VITAL SIGNS: Normal temperature, respiratory rate 20, heart rate of 99, blood pressure 101/64. Pulse oxygen saturation recorded as 100% on 2 liter nasal cannula. HEENT: Showed no acute change. CARDIOVASCULAR: S1, S2 audible. LUNGS: The patient without any crackle, rhonchi, or wheezing. Breaths are noted mildly decreased bilaterally. ABDOMEN: Soft, nontender. EXTREMITIES: No acute edema. IMPRESSION: Progressive resolution noted of acute on chronic hypercapnic and hypoxic respiratory failure, continue present medical management at this time. General debility secondary to current acute respiratory illness and other was also improving. PLAN OF TREATMENT: Continue physical therapy, occupation therapy. The patient has been considered for potential discharge to the nursing facility today. Outpatient followup in 2 weeks, post-discharge was recommended. BHAKTI GRAHAM MD CM:PNTRANS [id number] [id number] BHAKTI SPEARS MD 02/20/18 2348 interface
--- NOTE | ~2018-02-13 | EKG ---
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1950 Requested By: JOJO PERLA Order Number: [id number] Reading MD: Measurements Intervals [place] Rate: 85 P: MO: QRS: 53 QRSD: 117 T: QT: 455 QTc: 542 Interpretive Statements Atrial flutter Probable LVH with secondary repol abnrm ST elevation, consider inferior injury Prolonged QT interval Compared to ECG 01/30/2018 13:03:31 ST (T wave) deviation now present Myocardial infarct finding now present Prolonged QT interval now present Wandering atrial pacemaker no longer present Atrial-paced complex(es) or rhythm no longer present CM:EKGRPT:ELECTROCARDIOGRAM REPORT 1309 1011 JOJO DOMINGUEZ DRAFT REPORT JOJO PERLA DO
--- NOTE | ~2018-02-13 | CON ---
[place], [place] REPORT OF CONSULTATION NAME: ARLETTE PROCTOR [facility] #: [id number] UNIT #: [id number] ROOM: 517 DOCTOR: YOEL PETERSON MD BIRTHDATE: [birth year] DOS: 02/20/2018 HISTORY OF PRESENT ILLNESS: This is a 67-year-old -[place] man with a history of atrial fibrillation, essential hypertension, coronary artery disease, who had, I believe 2-vessel CABG in 1998 in [facility] in [place] and subsequently he has had coronary stents deployed by me. He had an echocardiogram in January of last year, which demonstrated an EF of 65% and normal right ventricular systolic function, no valvular problems. He also had moderate pulmonary hypertension, hyperlipidemia, chronic anemia, BPH and severe COPD and he is on oxygen at all times. He has had diastolic heart failure as well and paroxysmal atrial fibrillation and has been maintained in sinus rhythm with the use of propafenone. At one time, he had acute renal failure requiring hemodialysis for a short time. He quit smoking in the . He was admitted to the hospital because of acute on chronic respiratory failure. He had become short of breath, was coughing up some phlegm, wheezing, but no fever or chills. He did not pass out. He had no palpitations, even though his heart rate has been irregular. No dizziness or loss of consciousness, no swelling of the lower extremities. He has not had any symptoms of stroke. CURRENT MEDICATIONS: Include Levaquin, Solu-Medrol and aerosol treatments, Diamox 250 mg b.i.d., aspirin 81 daily, calcium, diltiazem 120 daily, metoprolol tartrate 75 mg b.i.d., Xarelto 20 mg daily, simvastatin 40 daily, Flomax 0.4 mg daily, and insulin. PHYSICAL EXAMINATION: GENERAL: This reveals a patient who is very pleasant, alert and sitting in the chair. Daughter is visiting him. He has oxygen on and is mildly tachypneic. He is not jaundiced, not cyanotic. There is no thyromegaly or finger clubbing. VITAL SIGNS: Pulse is irregular at 96 beats per minute, blood pressure 106/68. NECK: Normal JVP. AJR is negative. There is no carotid bruit. HEART: There is no cardiomegaly, no murmurs are present. EXTREMITIES: There is trace pretibial edema. RESPIRATORY: Percussion note reveals hyperresonance bilaterally with severely reduced breath sounds with end inspiratory and expiratory adventitious sounds. DIAGNOSTIC STUDIES: An ECG on admission, i.e. 02/13/2018 demonstrate atrial flutter with a ventricular rate of 100 beats per minute and also an intraventricular conduction defect. Monitor continues to show atrial flutter, rate is around 90-100. IMPRESSION: 1. Atrial flutter with somewhat fast ventricular rate. 2. Coronary artery disease, status post remote coronary artery bypass grafting. This is asymptomatic. 3. Exacerbation of chronic obstructive pulmonary disease, which has been treated intensively. RECOMMENDATIONS: He tells me that he gets indigestion like feeling after he takes propafenone, which he is not on any longer. I think flecainide 150 mg [place], [place] REPORT OF CONSULTATION NAME: ARLETTE PROCTOR UNIT #: [id number] ROOM: [facility] DOCTOR: YOEL PETERSON MD BIRTHDATE: [birth year] b.i.d. will be started and Xarelto is very important for reducing risk of an embolic event. If he remains in atrial flutter, then electrical cardioversion will be attempted at a later date even as outpatient. I thank you for this consult. YOEL PETERSON MD CM:CONSTR:REPORT OF CONSULTATION 1747 02/21/18 1705 interface
--- NOTE | ~2018-02-13 | PR ---
[place], [place] PROGRESS NOTE NAME: [facility]CTOR [id number] UNIT #: [id number] ROOM: [facility] DOCTOR: SANTOS SPEARS MD,BHAKTI BIRTHDATE: [birth year] DOS: 02/16/2018 SUBJECTIVE: He continues to show improvement in respiratory symptoms, but still complained of shortness of breath with minimal exertion. Denies symptoms of chest pain, fever or chills. Denies symptoms of acute hemoptysis. OBJECTIVE: VITAL SIGNS: For the patient which are recorded shows a normal temperature, respiratory rate of 16, heart rate 84, blood pressure 118/64. Pulse oxygen saturation on 2 liters 95% saturation. HEAD, EYES, EARS, NOSE, AND THROAT: No acute change. NECK: Supple. CARDIOVASCULAR SYSTEM: S1, S2 is audible. LUNGS: Without any crackles. Breaths are noted pcti-rt-pfoliwaqul diminished bilaterally. ABDOMEN: Soft, nontender. Bowel sounds present. EXTREMITIES: Without any acute edema. LABORATORY DATA: Culture of the sputum from yesterday showed normal woo. Final culture results were pending. CBC: WBC count 27.5, hemoglobin 10.6. BMP was noted as BUN 31, glucose 154. IMPRESSION: 1. Steroids-induced leukocytosis, resolving. 2. Acute on chronic severe hypercapnic and hypoxic respiratory failure. 3. Severe debility. 4. Acute exacerbation. PLAN OF TREATMENT: Continue current dose of Solu-Medrol and bronchodilators. Monitor white cell count. The patient was asked about assessment snf facility placement, post-discharge agree for that. cargo and ramp services manager consultation will be obtained for that. BHAKTI GRAHAM MD CM:PNTRANS [id number] BHAKTI SPEARS MD 02/16/18 1412 interface
--- NOTE | ~2018-02-13 | CON ---
[place], [place] REPORT OF CONSULTATION NAME: ARLETTE PROCTOR [facility] #: [id number] UNIT #: [id number] ROOM: [facility] DOCTOR: BHAKTI LEONARDO MD BIRTHDATE: [birth year] DOS: 02/14/2018 PULMONARY CONSULTATION, EVALUATION, AND MANAGEMENT CONSULTATION REQUESTED BY: Hospitalist service. REASON FOR CONSULTATION: Assessment of the acute respiratory failure. HISTORY OF PRESENT ILLNESS: This is a 67-year-old white male with history of end-stage COPD, chronic hypercapnic hypoxic respiratory failure. The patient has been admitted to the hospital recently and discharged for the medical management of acute exacerbation of chronic obstructive pulmonary disease and acute bronchitis, was noted in usual state of health. The patient has been readmitted to the hospital on 02/13/2018. He has been reporting symptoms of shortness of breath, which is occurring with mild exertion at this time for the last couple of days. He does have some cough without any sputum expectoration. Denies symptoms of chest pain or hemoptysis. The patient has been noted with wheezing as well. The patient has been prescribed tapering prednisone and amoxicillin since last admission and he was discharged on 02/02/2018. He has not been noted with any symptoms of headache or diplopia. Denies any chest pain. As the patient was treated on the floor, he developed severe acute respiratory distress with worsening of the hypoxia noted with worsening of the hypercapnia, acute on chronic hypercapnic hypoxic respiratory failure. The patient was transferred to Intensive Care Unit and was started on the BiPAP. He has been using the BiPAP overnight resulting in improvement in the ventilatory status and respiratory status as well. The patient's BiPAP setting has been changed to 18/12 as I was consulted based on the arterial blood gas. The patient responded to the treatment very well. REVIEW OF SYSTEMS: CONSTITUTIONAL SYMPTOMS: Fatigue and tiredness reported. Denies symptoms of fever or chills. EYES: Denies burning, redness, or tenderness. EARS, NOSE, THROAT SYMPTOMS: Denies sore throat, hoarseness, otalgia, postnasal drainage or epistaxis. CARDIOVASCULAR: No anginal pain, edema or pain of the lower extremities. GASTROINTESTINAL: No dysphagia, nausea, vomiting, diarrhea, abdominal pain, hematemesis, melena, or hematochezia. SKIN: Denies abnormal lesions or rashes. MUSCULOSKELETAL: No acute joint pain, redness, or tenderness. SKIN: Denies any lesions or rashes. CENTRAL NERVOUS SYSTEM: General weakness. There are no symptoms of focal neurologic deficit, tingling sensation of the extremities, or epilepsy reported. Remaining systems were reviewed. They were noted all negative. PAST MEDICAL HISTORY: 1. End-stage COPD. 2. Chronic hypercapnic respiratory failure. 3. Chronic hypoxic respiratory failure, dependency on oxygen 4 liter nasal cannula. [place], [place] REPORT OF CONSULTATION [id number] UNIT #: [id number] ROOM: [facility] DOCTOR: SANTOS SPEARS MD,[facility] BIRTHDATE: [birth year] 4. Essential hypertension. 5. Anxiety disorder. 6. Benign pulmonary nodules. 7. Essential hypertension. 8. Permanent atrial fibrillation. 9. Coronary artery disease. PAST SURGICAL HISTORY: Known as: 1. Coronary artery bypass grafting with cardiac catheterization and coronary artery stents insertion. 2. Past intubation and mechanical ventilation. 3. Therapeutic bronchoscopies. 4. Insertion and removal of dialysis catheter for the medical management of acute kidney injury as well. SOCIAL HISTORY: The patient is and lives at home. Denies history of alcohol use or illicit drug use. Tobacco use noted since teenager, smoked up to 5 pack of cigarettes per day and not smoking cigarettes since 2017. Denies any alcohol or illicit drug use. FAMILY HISTORY: The patient's father at 67 years with complication of myocardial infarction. Mother at 50 years with complications of COPD. CURRENT MEDICATIONS : The patient used on this hospitalization were noted use of Xarelto, Flomax, diltiazem CD, aspirin, metoprolol tartrate, propafenone, simvastatin, Solu-Medrol 80 mg every 8 hours, DuoNeb every 4 hours, hydroxyzine, Mucinex, and Levaquin. The patient has been previously administered the Zithromax and the Rocephin. DRUG ALLERGY HISTORY: THE PATIENT WAS NOTED POSSIBLE ALLERGY TO ZITHROMAX AND ROCEPHIN, AND AMOXICILLIN. PHYSICAL EXAMINATION: GENERAL: A 67-year-old white male was currently noted awake and alert, using BiPAP, sitting on the chair this morning for assessment in the Intensive Care Unit. Height of 6 feet, weight of 210 pounds. VITAL SIGNS: For the patient which were recorded showed normal temperature, respiratory rate 18-20, was noted up to 32 at the time of respiratory distress earlier. The heart rate ranged between 84-106. Blood pressure recorded 154/76-100/61. Intake was 920 mL, the output was not recorded. Pulse ox saturation on 3 liters nasal cannula 97% saturation. HEENT: Examination shows head was atraumatic. Eyes nonicterus. NECK: Supple. Oral mucosa was moist. CARDIOVASCULAR: S1, S2 audible. LUNGS: Diffuse reduction in breath sounds with poor air exchange. There were no crackles. ABDOMEN: Soft, nontender. Bowel sounds present. EXTREMITIES: Noted with minimal edema. MUSCULOSKELETAL: Without acute deformities. SKIN: No visible skin lesions or rashes. [place], [place] REPORT OF CONSULTATION NAME: ARLETTE PROCTOR UNIT #: [id number] ROOM: [facility] DOCTOR: SANTOS SPEARS MD,[facility] BIRTHDATE: [birth year] CENTRAL NERVOUS SYSTEM: Cranial nerves 2-12 intact. LABORATORY DATA: CBC on 02/13/2018 on admission WBC count 19.6, hemoglobin 11.2, hematocrit 38.4, platelet count of 220,000. The arterial blood gas, pH is 7.28, pCO2 of 87, pO2 of 160 on 100% nonrebreather mask on admission. Repeat arterial blood gas, pH is 7.20, pCO2 of 87, pO2 of 125 on 40% oxygen with the BiPAP. Arterial blood gas repeated after the patient pressure change on the BiPAP 18/12, pH of 7.37, pCO2 of 69, pO2 of 101. The troponins were noted as normal yesterday. CMP was noted with glucose 177, BUN 25, creatinine was normal. CO2 of 39. PT and PTT were normal this morning. CBC this morning: WBC count 13,000, hemoglobin 10.6, hematocrit 35.5, platelet count 194,000. Chest x-ray one-view reviewed from the PACS images that was done today was noted with changes of COPD, hyperinflation, and emphysema. There was no acute pulmonary infiltration. Severe hyperinflation of the lungs was seen. IMPRESSION: 1. The patient will be currently admitted to the hospital noted with severe acute hypercapnic and hypoxic respiratory failure with possibility of acute bronchitis. 2. Leukocytosis secondary to that. 3. Metabolic alkalosis, bicarb noted on admission of 42 and currently noted at 39 for the patient's acute chronic hypercarbia and underlying advanced chronic obstructive pulmonary disease. 4. The patient with questionable allergic reaction to ZITHROMAX AND ROCEPHIN for this patient at this time cannot be completely confirmed; however, the patient's antibiotics had been already discontinued. He was started on alternative antibiotic as Levaquin. 5. History of general anxiety disorder as well. PLAN OF THERAPY: Continue the BiPAP for the patient at this time. The BiPAP for the patient will be used at this time settings of 18/12 every 2 hours, on 2 hours, off during the day and/or respiratory distress during the morning. Continue use at nighttime was advised. Assessed possible use of noninvasive ventilator consideration at home. Discussion with the patient will be done most likely prior to the discharge. Bronchodilators were continued. Dose of Solu-Medrol will be decreased to 40 mg every 8 hours. The patient noted high dose of corticosteroids, which is not needed. Also, discontinue DuoNeb and change this to albuterol sulfate for the management of chronic obstructive pulmonary disease exacerbation. Monitor respiratory status closely. Usual care. All other supportive therapy, plan of management, care plan to be continued. Additional treatment changes continue to be done for this patient based on progression of his illness. Supportive care, other therapy, plan of management and treatments. Keep the patient on screening for respiratory status, monitor the patient in the next 24 hours. Intubation and mechanical ventilation consideration in case of worsening of the respiratory distress if occurred for this patient as the patient stays in the Intensive Care Unit in the next 24 hours. Deep venous thrombosis prophylaxis in the form of Xarelto will be continued. The heart rate of the patient noted well controlled. The patient has permanent atrial fibrillation at this time. Heart rate less than 100. [place], [place] REPORT OF CONSULTATION NAME: ARLETTE PROCTOR [place] UNIT #: [id number] ROOM: [facility] DOCTOR: BHAKTI LEONARDO MD BIRTHDATE: [birth year] Thanks for allowing me to participate in care of this patient. BHAKTI GRAHAM MD CM:CONSTR:REPORT OF CONSULTATION 1240 02/14/18 2233 interface
--- NOTE | ~2018-02-13 | PR ---
[place], [place] PROGRESS NOTE [id number] #: [id number] ROOM: 517 DOCTOR: SANTOS SPEARS MD,BHAKTI BIRTHDATE: [birth year] DOS: 02/18/2018 PULMONARY PROGRESS NOTE SUBJECTIVE: The patient is noted comfortable at this time, resting on bed this morning of assessment. Denies symptoms of chest pain, fever or chills. He has been continued on the bronchodilators. He is complaining of generalized fatigue. Shortness of breath occurs with exertion. Coughing has improved. OBJECTIVE: VITAL SIGNS: Heart rate of 114 beats per minute, temperature normal, respiratory rate 20, blood pressure 112/66. Pulse oxygen saturation on BiPAP was 98%, with 3 liters nasal cannula at rest was 97% saturation. HEENT: No acute change. NECK: Supple. CARDIOVASCULAR: S1 and S2 audible. LUNGS: The patient was noted without any crackles, rhonchi, or wheezing. ABDOMEN: Soft, nontender. IMPRESSION: Stable respiratory status with resolving oipyi-sn-uoqnoto hypercapnic hypoxic respiratory failure and exacerbation of chronic obstructive pulmonary disease. PLAN OF MANAGEMENT: No changes in plan of care at this time. Continue current therapy as previously. BHAKTI GRAHAM MD CM:PNTRANS [id number] BHAKTI SPEARS MD 03/06/18 0830 interface
--- NOTE | ~2018-02-13 | PR ---
[place], [place] PROGRESS NOTE NAME: ARLETTE PROCTOR [facility] #: [id number] UNIT #: [id number] ROOM: 517 DOCTOR: SANTOS SPEARS MD,BHAKTI BIRTHDATE: [birth year] DOS: 02/15/2018 SUBJECTIVE: The patient continued to do well with current medical management at this time. Denies symptoms of fever or chills or any chest pain. Denies symptoms of hemoptysis. The patient denies any symptoms of nausea or vomiting. Denies edema or pain in lower extremity, shortness breath, which still occurred as the patient to walk from his bed to the bathroom. He has been using the BiPAP as ordered as well. Remaining systems reviewed, they were noted all negative. OBJECTIVE: VITAL SIGNS: Normal temperature, respiratory rate 20-25, heart rate of 80-79, blood pressure 132/76-105/78. Pulse oxygen saturation recorded as 97% saturation on 3 liters nasal cannula at rest. HEENT: No new change. NECK: Supple. CARDIOVASCULAR: S1, S2 audible. LUNGS: The patient was noted generally decreased air entry with wheezing. The air exchange still noted decreased. ABDOMEN: Soft, flat, nontender, bowel sounds present. EXTREMITIES: Noted without any acute edema. MUSCULOSKELETAL: Noted without any deformities. CENTRAL NERVOUS SYSTEM: Cranial nerves 2-12 intact. LABORATORY DATA: CBC this morning, WBC count shows significant admission, WBC count 33.7, hemoglobin 10.7, hematocrit normal, platelet count normal. BMP, BUN of 34, creatinine 1.23, glucose 242. CO2 of 36. Blood culture, no bacterial growth from the of this month. IMPRESSION: 1. The patient with leukocytosis, which has been noted significantly increased. The patient is on steroids, other etiologies to rule out any GI problems including C. diff colitis, but the patient does not have any symptoms related to that. 2. Resolving acute on chronic hypoxic and hypercapnic respiratory failure and exacerbation of COPD. PLAN OF MANAGEMENT: Close surveillance for the infection. No changes in the antibiotic will be recommended. Monitor white cell count. Decrease Solu-Medrol growth. The patient to reduce Effexor Steroid-induced leukocytosis. In the meantime, continue other therapy, plan of management, care plan, treatment and therapies. [place], [place] PROGRESS NOTE NAME: ARLETTE PROCTOR UNIT #: [id number] ROOM: [facility] DOCTOR: SANTOS SPEARS MD,BHAKTI BIRTHDATE: [birth year] BHAKTI GRAHAM MD CM:ROCHELLE [id number] BHAKTI SPEARS MD 03/06/18 0832 interface
[~2018-02-13 13:00] MED LIST changes: +AMOXICILLIN500 M2 PO
[2018-02-13 13:02] VITALS: BP 154/76
--- NOTE | 2018-02-13 13:19 | NUR ---
pt placed on bipap 15/5 100% o2 spo2 99% decreased o2 to 70%
--- NOTE | 2018-02-13 13:30 | NUR ---
ABG DRAWN VIA LEFT RADIAL ON BIPAP 15/5 70% O2 SPO2 98% DECREASED TO 50% O2 DR. BRYSON AWARE
[2018-02-13 13:35] LABS: BASO % 0.2 % (0.0-1.0); EOS # 0.3 10*3/uL (0.0-0.4); EOS % 1.4 % (1.0-4.0); HEMATOCRIT 38.4 % (42.0-52.0); HEMOGLOBIN 11.2 g/dl (14.0-18.0); LYMPH % 4.9 % (27.0-41.0); MEAN CELL VOLUME 97.5 fl (80.0-94.0); MEAN CORPUSCULAR HGB 28.4 pg (27.0-31.0); MEAN CORPUSCULAR HGB CONC 29.2 g/dl (33.0-37.0); MEAN PLATELET VOLUME 9.7 fl (9.6-12.3); NEUT # 17.2 10*3/uL (2.3-7.9); NEUT % 87.9 % (47.0-73.0); PLATELET COUNT AUTOMATED 320 10*3/uL (130-400); RED BLOOD COUNT 3.94 10*6/uL (4.50-5.90); RED CELL DISTRI WIDTH 13.2 % (0-14.5); WHITE BLOOD COUNT 19.6 10*3/uL (4.8-10.8)
[2018-02-13 13:38] LABS: ABG BASE EXCESS 11.1 mmol/L (-2.0-2.0); ABG HCO3 40.6 mmol/l (22-26); ABG O2 SATURATION 99.9 % (95-97); ARTERIAL BLOOD GAS PH 7.286 (7.35-7.45)
[2018-02-13 13:41] LABS: ARTERIAL BLOOD GAS PCO2 87.1 mmHg (35-45)
[2018-02-13 13:51] LABS: ALKALINE PHOSPHATASE 99 U/L (45-117); BUN 18 mg/dl (7-24); CHLORIDE 94 mmol/L (98-107); CREATININE 1.25 mg/dL (0.70-1.30); POTASSIUM 4.9 mmol/L (3.5-5.1); SGOT/AST 7 IU/L (3-35); SGPT/ALT 26 U/L (12-78); SODIUM 139 mmol/L (136-145); TOTAL PROTEIN 6.3 gm/dL (6.4-8.2)
[2018-02-13 13:53] LABS: TROPONIN I < 0.015 ng/ml (<0.045)
--- NOTE | 2018-02-13 13:54 | NUR ---
CO2 42 DR BRYSON AWARE
[2018-02-13 14:04] VITALS: BP 108/66
[2018-02-13 14:28] VITALS: BP 116/63
[2018-02-13 15:34] VITALS: BP 109/47
[2018-02-13 15:48] VITALS: BP 130/60
--- NOTE | 2018-02-13 15:48 | NUR ---
A 67, admitted to ICCU, under the services of SHARON Delvalle DO with a diagnosis of RESPIRATORY FAILURE. Chief complaint is SHORTNESS OF BREATH. Patient arrived via stretcher from ER. Monitor applied. Initial assessment completed. Vital signs taken and recorded. SHARON DELVALLE DO notified of admission to the unit. Orders received. See assessment for past medical history, medications and allergies. Patient and/or family oriented to unit. [facility] visitation policy reviewed. Clothing/patient valuable form completed. GREY POWELL
[2018-02-13 16:36] LABS: ABG BASE EXCESS 10.9 mmol/L (-2.0-2.0); ABG HCO3 40.3 mmol/l (22-26); ABG O2 SATURATION 99.1 % (95-97); ARTERIAL BLOOD GAS PH 7.283 (7.35-7.45)
[2018-02-13 16:42] LABS: ARTERIAL BLOOD GAS PCO2 87.7 mmHg (35-45)
--- NOTE | 2018-02-13 17:15 | NUR ---
DR. GRAHAM NOTIFIED OF CONSULT. ABG RESULTS TOLD TO HIM. NEW ORDERS RECEIVED FOR BI-PAP SETTINGS 31/01 AND ABG'S IN 2 HRS
--- NOTE | 2018-02-13 18:25 | NUR ---
CALLED INTO ROOM. STATES "I CAN'T BREATHE." SITTING UP IN BED. RESTLESS. PULSE OX DROPPED TO 85% ON BI-PAP. DR. RAYMOND HERE AND ORDERES RECEIVED FOR SOLUMEDROL 125MG AND BENADRYL 12.5MG IV. 1829- PULSE OX 95% AFTER IV MED'S, VOICES HE FEELS BETTER
--- NOTE | 2018-02-13 19:50 | NUR ---
24 HR chart check completed.
[2018-02-13 19:58] LABS: ABG HCO3 39.5 mmol/l (22-26); ABG O2 SATURATION 98.8 % (95-97); ARTERIAL BLOOD GAS PCO2 69.9 mmHg (35-45); ARTERIAL BLOOD GAS PH 7.37 (7.35-7.45)
[2018-02-13 20:00] VITALS: BP 117/73
--- NOTE | 2018-02-13 20:05 | NUR ---
UPDATED DR. GRAHAM WITH NEW ABG RESULTS.
[2018-02-14] VITALS: BP 105/63
--- NOTE | 2018-02-14 03:20 | NUR ---
PATIENT HAS NOT URINATED THROUGH THE NIGHT, STATES HE DOESNT HAVE TO YET. BLADDER SCANNED, AND IT SHOWED 150ML. NOTIFIED DR. JOLLEY.
[2018-02-14 04:00] VITALS: BP 107/63
[2018-02-14 05:42] LABS: ALBUMIN 2.6 gm/dl (3.1-4.5); ALKALINE PHOSPHATASE 92 U/L (45-117); BUN 25 mg/dl (7-24); CHLORIDE 94 mmol/L (98-107); CREATININE 1.17 mg/dL (0.70-1.30); PHOSPHOROUS 3.2 mg/dL (2.5-4.9); POTASSIUM 5.1 mmol/L (3.5-5.1); SGOT/AST 8 IU/L (3-35); SGPT/ALT 22 U/L (12-78); SODIUM 138 mmol/L (136-145)
--- NOTE | 2018-02-14 06:00 | NUR ---
CONTACTED DR. SOTELO'S OFFICE FOR CONSULT.
--- NOTE | 2018-02-14 06:12 | NUR ---
CONTACTED [employer] FOR INTERGOTION.
[2018-02-14 06:39] LABS: ACT PARTIAL THROMBO TIME 29.1 SECONDS (20.8-31.5); HEMATOCRIT 35.3 % (42.0-52.0); HEMOGLOBIN 10.6 g/dl (14.0-18.0); MEAN CELL VOLUME 96.4 fl (80.0-94.0); MEAN PLATELET VOLUME 10.4 fl (9.6-12.3); PLATELET COUNT AUTOMATED 294 10*3/uL (130-400); RED BLOOD COUNT 3.66 10*6/uL (4.50-5.90); RED CELL DISTRI WIDTH 13.4 % (0-14.5)
[2018-02-14 06:50] LABS: PLATELET SUFFICIENCY NORMAL (NORMAL); TOTAL CELLS COUNTED 100 #CELLS
[2018-02-14 08:00] VITALS: BP 100/61
--- NOTE | 2018-02-14 09:00 | NUR ---
PHYSICAL THERAPY Patient evaluated in ICCU, full evaluation to follow. Continue with PT as per plan of care with fall, 02 and cardiac precautions. Home with home health RN and PT. PAtient is moderate complexity via chart review, tests and evaluation: [id number]. Thank you for this referral. Chrissie Nichols,PT
[2018-02-14 12:00] VITALS: BP 100/65
--- NOTE | 2018-02-14 15:22 | NUR ---
PHYSICAL THERAPY Patient's nurse advised therapy that patient is presently on bi-pap machine and also needs to rest at this time. Will check back tommorrow AM. CHARU TIM CAR HOPPER
[2018-02-14 16:00] VITALS: BP 111/69
[2018-02-14 20:00] VITALS: BP 109/58
--- NOTE | 2018-02-14 20:02 | NUR ---
PT. RESTING IN BED. IVF CONTINUE ORDERED VIA RAN SITE ASYMPT. LUNGS CLEAR BILAT. ABDOMEN SOFT, NONDISTENDED AND NORMO. NO PERIPHERAL EDEMA NOTED. SOB NOTED WITH MINIMAL EXERTION. STANLEY RICKETTS RN
[2018-02-15] VITALS: BP 109/70
[2018-02-15 04:00] VITALS: BP 105/78
[2018-02-15 07:59] LABS: HEMATOCRIT 34.5 % (42.0-52.0); HEMOGLOBIN 10.7 g/dl (14.0-18.0); MEAN CELL VOLUME 95.3 fl (80.0-94.0); MEAN CORPUSCULAR HGB 29.6 pg (27.0-31.0); MEAN PLATELET VOLUME 9.7 fl (9.6-12.3); PLATELET COUNT AUTOMATED 285 10*3/uL (130-400); RED BLOOD COUNT 3.62 10*6/uL (4.50-5.90); RED CELL DISTRI WIDTH 13.8 % (0-14.5); WHITE BLOOD COUNT 33.7 10*3/uL (4.8-10.8)
[2018-02-15 08:00] VITALS: BP 133/76
[2018-02-15 08:10] LABS: BUN 34 mg/dl (7-24); CHLORIDE 101 mmol/L (98-107); CREATININE 1.23 mg/dL (0.70-1.30); POTASSIUM 4.7 mmol/L (3.5-5.1); SODIUM 141 mmol/L (136-145)
[2018-02-15 08:21] LABS: OVALOCYTES FEW; PLATELET SUFFICIENCY NORMAL (NORMAL); TOTAL CELLS COUNTED 100 #CELLS
--- NOTE | 2018-02-15 09:04 | NUR ---
OT NOTE Attempted to see pt this A.M. for OT session and upon arrival pt was supine in bed and requesting to be seen after his x-ray. Will check back at a later time/date. JANNETTE Araya/Harvinder
--- NOTE | 2018-02-15 09:05 | NUR ---
PHYSICAL THERAPY Patient would like to wait until he has his scheduled X-RAY this morning before having therapy. Will check back later. CHARU TIM ARMATURE BALANCER
--- NOTE | 2018-02-15 09:48 | NUR ---
TAKEN VIA WHEELCHAIR FOR US ABD.
--- NOTE | 2018-02-15 09:55 | NUR ---
case management attempted to visit with patient, patient going for testing, will see at a later time
--- NOTE | 2018-02-15 10:39 | NUR ---
OT NOTE Second attempt made to see pt this A.m. for OT session and upon arrival pt was requesting to be seen at a later due to being "very SOB" at this time. ICCU nurse made aware. Will check back at a later time/date. JANNETTE Araya/Harvinder
--- NOTE | 2018-02-15 10:44 | NUR ---
PHYSICAL THERAPY Patient sitting up in bedside chair upon this therapist arriving in patient's room. Patient complains of SOB and does not want to do therapy right now due to the SOB. Will check back in afternoon one more time. CHARU TIM VALUATION CONSULTANT
--- NOTE | 2018-02-15 11:25 | NUR ---
PHYSICAL THERAPY Patient says he is SOB when he was approached 2 nd time for therapy. Will check back in afternoon one last time today. CHARU TIM DESIGN ENGINEERING SPECIALIST
[2018-02-15 12:00] VITALS: BP 101/50
--- NOTE | 2018-02-15 15:17 | NUR ---
OT NOTE Pt was seen this P.M. 1:1 for 17 minute OT session. Upon arrival pt was sitting upright in recliner, pt identified by name and . pt had no complaints at this time and presented to therapy with continous 4L-O2 via NC which he remained on throughout entire session. Challenged pt's sitting balance needed for increased I and enhanced safety while having pt weight shift, cross midline, and bilateral integration. Pt was able to maintain G sitting balance throughout. Pt then completed functional mobility around the room with CGA FITTINGS TIGHTENER while therapist managed O2 tank. Pt was able to tolerate aprox 2 minutes of dynamic stanidng before stopping for a standing rest break due to fatigue and SpO2 dropping to 87%. Educated pt on pursed lip breathing technique. Pt then returned to recliner where he was left sitting upright in recliner with call light in hand, company in the room, and vitals all WFL. Continue with rec D/C plan to home. JANNETTE Araya/Harvinder
[2018-02-15 16:00] VITALS: BP 103/62
--- NOTE | 2018-02-15 16:06 | NUR ---
PHYSICAL THERAPY Patient presented to therapy in sitting in bedside chair with 4 liters of continous spO2 via nasal canula and report of feeling like he wants to walk. Patient has visitor present in room. Patient was connected to portable spinning and winding supervisor and spO2 tank at 4 liters. Patient agrees to therapy session this afternoon. Patient was identified by name and . Patient transferred STS with SBA. Patient ambulated with no assistive device and CGA for safety FOR 80' X 1. Patient's O2 SAT dropped to 87%, but quickly recovered to 95% with short standing rest break on 4 liters of spO2. Patient transferred back to sitting in bedside chair with call light within reach, spO2 CONNECTED to WALL OUTLET AT 4 LITERS VIA NASAL CANULA, and telemetry monitors re-connected to monitor. Patient was left in sitting position in bedside chair with call light within reach and visitors present in room. Patient was 1:1 with this CIGARETTE PACKER for 18 minutes total. CHARU TIM CIGARETTE PACKER
[2018-02-15 20:00] VITALS: BP 121/63
--- NOTE | 2018-02-15 22:25 | NUR ---
24 HR chart check completed.
[2018-02-16] VITALS: BP 116/77
[2018-02-16 04:05] VITALS: BP 111/68
[2018-02-16 05:47] LABS: BUN 31 mg/dl (7-24); CHLORIDE 102 mmol/L (98-107); CREATININE 1.15 mg/dL (0.70-1.30); POTASSIUM 4.8 mmol/L (3.5-5.1); SODIUM 142 mmol/L (136-145)
[2018-02-16 05:50] LABS: HEMATOCRIT 36.1 % (42.0-52.0); HEMOGLOBIN 10.6 g/dl (14.0-18.0); MEAN CELL VOLUME 97.3 fl (80.0-94.0); MEAN CORPUSCULAR HGB 28.6 pg (27.0-31.0); MEAN CORPUSCULAR HGB CONC 29.4 g/dl (33.0-37.0); MEAN PLATELET VOLUME 10.3 fl (9.6-12.3); PLATELET COUNT AUTOMATED 290 10*3/uL (130-400); RED BLOOD COUNT 3.71 10*6/uL (4.50-5.90); WHITE BLOOD COUNT 27.5 10*3/uL (4.8-10.8)
[2018-02-16 06:42] LABS: OVALOCYTES FEW; PLATELET SUFFICIENCY NORMAL (NORMAL); TOTAL CELLS COUNTED 100 #CELLS
[2018-02-16 07:59] VITALS: BP 118/64
--- NOTE | 2018-02-16 09:37 | NUR ---
PT SITTING UP ON SIDE OF BED EATING BREAKFAST WITH NO C/O ANY. 93% ON 2.5L NC.
--- NOTE | 2018-02-16 10:40 | NUR ---
OT NOTE Pt was seen this A.M. 1:1 for 18 minute OT session. Upon arrival pt was sitting upright in recliner, pt identified by name and . Pt had no complaints at this time and presented to therapy with continous 3L_O2 via NC which he reamined on throughout entire session and IV treatment. At rest pt's SpO2 was 94%. Functional mobility completed around the room with CGA HARDBOARD COATING MACHINE OPERATOR to simulate ADL/IADL task due to pt declining grooming task. Throughout activity pt's SpO2 dropped to 88% and after aprox 1-2 minutes of deep breathing techniques pt's SpO2 raised back to 95%. Pt was left sitting upright in recliner with call light in hand, tray table in place, ICCU nurse notified. Continue with POC as able. JANNETTE Araya/Harvinder
[2018-02-16 11:42] VITALS: BP 112/68
--- NOTE | 2018-02-16 13:11 | NUR ---
PHYSICAL THERAPY Patient presented to therapy in sitting position with 3 liters of spO2 and report of feeling a little better this morning. Patient agrees to therapy session. Patient was identified by name and . Patient performed sit to stand transfer from bedside chair with SBA. Patient performed ambulation with no assistive device and Close Supervision for 80' x 1 with O2 SAT dropping to 82% at 80' from 94% prior to ambulating. Patient sat on EOB and rested for 4 minutes. Patient's O2 sat increased to 88% within 1 minute, 90% within 1.5 minutes,and 94% within 2 minutes. Patient STS from bedside chair again with SBA. Patient ambulated with no assistive device and Close Supervision for 80' x 1 for the second time with 3 liters of spO2 with 02 SAT dropping to 88% and recovering within 1 minute to 94%. Patient was left in sitting position in bedside chair with call light within reach and O2 attached to wall outlet with 3 LITERS OF spO2. Patient recommended to HOME with HH PT. CHARU TIM PIPE TURNER
[2018-02-16 16:00] VITALS: BP 116/69
--- NOTE | 2018-02-16 18:00 | NUR ---
Patient resting quietly with no c/o discomfort. Respirations easy and regular. Vital signs stable. No overt distress. ROB CURTIS
[2018-02-16 20:00] VITALS: BP 134/76
--- NOTE | 2018-02-16 21:45 | NUR ---
MEDICATED WITH PO M.O.M. ORDERED PER PT REQUEST FOR C/O CONSTIPATION.
[2018-02-17] VITALS: BP 128/61
--- NOTE | 2018-02-17 | NUR ---
PT RESTING IN BED. NO ACUTE DISTRESS NOTED. RESPS EASY AND REG. NO C/O VOICED AT THIS TIME. CALL LIGHT IN REACH.
[2018-02-17 06:33] LABS: HEMATOCRIT 35.4 % (42.0-52.0); HEMOGLOBIN 10.3 g/dl (14.0-18.0); MEAN CORPUSCULAR HGB 28.2 pg (27.0-31.0); MEAN CORPUSCULAR HGB CONC 29.1 g/dl (33.0-37.0); MEAN PLATELET VOLUME 10.4 fl (9.6-12.3); PLATELET COUNT AUTOMATED 275 10*3/uL (130-400); RED BLOOD COUNT 3.65 10*6/uL (4.50-5.90); RED CELL DISTRI WIDTH 13.9 % (0-14.5); WHITE BLOOD COUNT 22.9 10*3/uL (4.8-10.8)
[2018-02-17 06:42] LABS: BUN 24 mg/dl (7-24); CHLORIDE 97 mmol/L (98-107); CREATININE 1.03 mg/dL (0.70-1.30); POTASSIUM 4.8 mmol/L (3.5-5.1); SODIUM 140 mmol/L (136-145)
[2018-02-17 07:25] LABS: TOTAL CELLS COUNTED 100 #CELLS
[2018-02-17 07:26] LABS: PLATELET SUFFICIENCY NORMAL (NORMAL)
--- NOTE | 2018-02-17 09:00 | NUR ---
case management visits with patient, discussed with him a short term penitentiary unit for rehab prior to going back home, patient stated that his doctor mentioned going to a [facility] and he was inagreement with this, he also stated that his is having surgery on Tuesday and he needs to be strong enough to help her when she returns home, given choice of facilities patient chose [facility], states his daughter works there, also asked for a second choice in case [facility] didn't have a bed, patient stated he would not go to [facility] so he will be referred to [facility], patient stated he did not want to go out of this area, corporate planner will make referral to [facility] and [facility]
--- NOTE | 2018-02-17 09:06 | NUR ---
Patient requesting a referral to the rehab suites. Contacted facility, they stated they do not have any beds available right now but have an anticipated discharge there today. Faxed referral, waiting to see if bed will be available.
--- NOTE | 2018-02-17 09:49 | NUR ---
PHYSICAL THERAPY Patient presented to therapy in new room today after being transferred from [place] [address] yesterday. Patient is on 3 liters of continuous spO2 via nasal canula. Patient agrees to therapy session. Patient is sitting at EOB. Patient was identified by name and . Patient performed STS transfer with SBA. Patient ambulated with no assistive device and Close Supervision for 150' x 1. Patient required verbal cues for pacing himself and takingstanding rest breaks when needed. Patient was 1:1 with this MECHANICAL AND AUTO BODY CAR CHECKER for 14 minutes total. Patient was left in sitting at EOB with Nurse present and call light within reach. Patient is recommended for HH PT upon discharge. CHARU TIM MECHANICAL AND AUTO BODY CAR CHECKER
--- NOTE | 2018-02-17 09:49 | NUR ---
Occupational Therapy 1:1 treatment for 20 minutes. Patient able to report name and date of as seated edge if bed, Patient using 3 LPM O2 and clinically able perform pursed lip breathing when SOB begins and needs verbal instruction to pace and rest before fatigue. Patient educated to sit on a chair with back to improve breathing. Patient able to gather and transport grooming items for oral care at sink. Patient leans over sink and stood for 5-6 minutes for the task and ambulates w/ CGA to chair with SOB and verbal instruction for pursed lip breathing and resting. Patient was able to return to sink standing for hair grooming. Patient able to manage O2 independently and safety. Patient tends to move swiftly to hurry and complete a task v.s move slower and pacing. Consult with PT to suggest use of wh walker for pacing and improved safety and breath control. Continue w/ OT per pOC with short SNF stay indicated to enable return home at indep level. Lilibeth Remy OTR/l
--- NOTE | 2018-02-17 10:42 | NUR ---
[facility]hab suites does not have any available beds at this time, patient referred to [facility]nd [facility]. 3 night stay complete, waiting on acceptance/review
[2018-02-17 12:00] VITALS: BP 124/65
--- NOTE | 2018-02-17 12:30 | NUR ---
PATIENT REQUESTING TO GO ON BIPAP WHILE HE NAPS. PLACED ON ORDERED. WILL MONITOR.
--- NOTE | 2018-02-17 13:22 | NUR ---
Patient changed his mind and does not want to go to [facility], he stated he will go to the old [facility] [place]. Referral faxed; Patient has been accepted to [facility], 3 night stay is complete, hospital exemption completed, [facility] is ordering a bi pap machine for patient; patient can be discharged when [facility] receives the bi pap.
--- NOTE | 2018-02-17 14:15 | NUR ---
PATIENT REQUESTING TO COME OFF BIPAP AT THIS TIME. WORE FOR 1 HOUR 45 MIN-TOLERATED WELL. PLACED BACK ON 3LNC. MONITOR.
--- NOTE | 2018-02-17 14:53 | NUR ---
PHYSICAL THERAPY Pt is requesting not to be seen at this time due to difficulty breathing. Carmelina Neri [id number]
--- NOTE | 2018-02-17 15:03 | NUR ---
OCCUPATIONAL THERAPY CO-SIGN I approve of the Occupational Therapy notes written above. JOSEPH KELLEY OTR/Harvinder
[2018-02-17 16:00] VITALS: BP 117/49
[2018-02-17 16:01] LABS: BILIRUBIN NEGATIVE (NEGATIVE); BLOOD TRACE-LYSED (NEGATIVE); CLARITY CLEAR (CLEAR); COLOR YELLOW (YELLOW); GLUCOSE 3+ (NEGATIVE); KETONE NEGATIVE (NEGATIVE); LEUKO ESTERASE NEGATIVE (NEGATIVE); NITRITE NEGATIVE (NEGATIVE); PH 5.5 (5.0-9.0); SPECIFIC GRAVITY 1.025 (1.005-1.030); UROBILINOGEN 0.2 E.U./dl (0.2-1.0)
[2018-02-17 16:22] LABS: BACTERIA TRACE; RBC 0-2 rbc/hpf (0-2)
[2018-02-17 20:00] VITALS: BP 126/62
--- NOTE | 2018-02-17 20:13 | NUR ---
PATIENT IS RESTING IN BED WITH EASY AND REGULAR RESPERS ON 3L O2 VIA NASAL CANNULA. ASSESSMENT IS COMPLETE WITH NO C/O OR S/S OF DISTRESS NOTED AT THIS TIME. BSG 250. BED IS LOW, LOCKED, ALARMED AND CALL LIGHT IS WITHIN REACH. SEE SHIFT ASSESSMENT.
--- NOTE | 2018-02-17 22:15 | NUR ---
2200 MEDICATIONS GIVEN AT THIS TIME, PATIENT TOLERATED WELL. CALL LIGHT IS WITHIN REACH.
--- NOTE | 2018-02-17 22:40 | NUR ---
PT PLACED ON BIPAP
[2018-02-18] VITALS: BP 106/74
[2018-02-18 05:32] VITALS: BP 118/60
[2018-02-18 07:10] LABS: BASO % 0.1 % (0.0-1.0); EOS % 0.2 % (1.0-4.0); HEMATOCRIT 37.6 % (42.0-52.0); HEMOGLOBIN 10.7 g/dl (14.0-18.0); LYMPH # 1.3 10*3/uL (1.3-4.4); MEAN CELL VOLUME 98.4 fl (80.0-94.0); MEAN CORPUSCULAR HGB CONC 28.5 g/dl (33.0-37.0); MEAN PLATELET VOLUME 10.1 fl (9.6-12.3); MONO # 0.8 10*3/uL (0.1-1.0); MONO % 5.6 % (3.0-9.0); NEUT % 84.7 % (47.0-73.0); PLATELET COUNT AUTOMATED 261 10*3/uL (130-400); RED BLOOD COUNT 3.82 10*6/uL (4.50-5.90); RED CELL DISTRI WIDTH 14.1 % (0-14.5); WHITE BLOOD COUNT 14.2 10*3/uL (4.8-10.8)
[2018-02-18 07:30] LABS: BUN 23 mg/dl (7-24); CHLORIDE 98 mmol/L (98-107); CREATININE 1.15 mg/dL (0.70-1.30); POTASSIUM 4.7 mmol/L (3.5-5.1); SODIUM 142 mmol/L (136-145)
[2018-02-18 08:00] VITALS: BP 112/66
--- NOTE | 2018-02-18 08:00 | NUR ---
CRITICAL CARBON DIOXIDE CALLED TO DR CASTRO, NO NEW ORDERS.
[2018-02-18 12:00] VITALS: BP 120/82
--- NOTE | 2018-02-18 12:14 | NUR ---
HR RUNNING 120s-130s, NOTIFIED DR CASTRO. NOTIFIED HER THAT RYTHMOL WAS NO LONGER ON BOARD AFTER SPEAKING WITH PATIENT.
--- NOTE | 2018-02-18 12:25 | NUR ---
ANSWERING SERVICE WAS NOTIFIED OF DR. KRISTEN BERRY. RESPONSE OF NOTIFICATION WAS DR CAMARENA IS COVERING I WILL PAGE HIM.. ROSCOE MAJOR
--- NOTE | 2018-02-18 12:26 | NUR ---
SPOKE TO DR CAMARENA REGARDING CONSULT. NEW ORDER RECEIVED TO INCREASE LOPRESSOR TO 50MG BID.
--- NOTE | 2018-02-18 12:53 | NUR ---
PHYSICAL THERAPY Patient seen this PM for his therapy session, sitting EOB at time of arrival; pt on 3L continuous O2 via NC. Pt reports having difficulty breathing this date and fluctuating HR. Pt completed seated B LE ther-ex x 15 reps for LE strength and endurance: Martín shah hip abd/add, ankle PF/DF-- CERTIFIED COMPOSITES TECHNICIAN monitoring pt tolerance throughout with O2 sats remaining >93% throughout and HR at 130-138 BPM with prolonged rest breaks provided to recover. Nursing staff was informed of pt HR at session end. Pt sitting EOB at session end with call light and tray table within reach. Angie Stringer, CERTIFIED COMPOSITES TECHNICIAN
[2018-02-18 16:00] VITALS: BP 97/60
[2018-02-18 20:09] VITALS: BP 145/51
--- NOTE | 2018-02-18 20:57 | NUR ---
24 HR chart check completed.
[2018-02-19] VITALS: BP 104/65
[2018-02-19 06:40] LABS: BASO % 0.1 % (0.0-1.0); EOS # 0.1 10*3/uL (0.0-0.4); EOS % 0.5 % (1.0-4.0); HEMATOCRIT 33.4 % (42.0-52.0); LYMPH # 0.8 10*3/uL (1.3-4.4); LYMPH % 6.2 % (27.0-41.0); MEAN CELL VOLUME 98.5 fl (80.0-94.0); MEAN CORPUSCULAR HGB 29.5 pg (27.0-31.0); MEAN CORPUSCULAR HGB CONC 29.9 g/dl (33.0-37.0); MEAN PLATELET VOLUME 10.8 fl (9.6-12.3); MONO # 0.6 10*3/uL (0.1-1.0); NEUT # 10.7 10*3/uL (2.3-7.9); NEUT % 87.8 % (47.0-73.0); PLATELET COUNT AUTOMATED 224 10*3/uL (130-400); RED BLOOD COUNT 3.39 10*6/uL (4.50-5.90); RED CELL DISTRI WIDTH 13.9 % (0-14.5); WHITE BLOOD COUNT 12.2 10*3/uL (4.8-10.8)
[2018-02-19 07:23] LABS: BUN 22 mg/dl (7-24); CHLORIDE 96 mmol/L (98-107); POTASSIUM 4.4 mmol/L (3.5-5.1); SODIUM 143 mmol/L (136-145)
--- NOTE | 2018-02-19 07:40 | NUR ---
dr armijo contacted and informed of critical co2 43, was 44 yesterday. respirations easy. no distress noted. no new orders received
[2018-02-19 08:00] VITALS: BP 106/64
--- NOTE | 2018-02-19 09:00 | NUR ---
RESTING IN BED WITH EYES CLOSED. RESPIRATIONS EASY. LUNGS DIMINISHED WITH POOR AIR MOVEMENT. PULSE OX 100% 3L, TITRATED TO 2L. PULSE OX REMAINS 100% 2L. TRACE EDEMA. OFFERED AND EDUCATED REGARDING TEDS, TEDS PLACED AT BEDSIDE. CALL LIGHT WITHIN REACH. NO VOICED COMPLAINTS
--- NOTE | 2018-02-19 10:00 | NUR ---
DR DENT AND MATTHEW PRESENT ON FLOOR TO ASSESS PATIENT AND DISCUSS PLAN OF CARE
[2018-02-19 12:00] VITALS: BP 103/54
--- NOTE | 2018-02-19 12:00 | NUR ---
24 HR chart check completed.
--- NOTE | 2018-02-19 12:00 | NUR ---
SLEEPING. PULSE OX 100% 2L
--- NOTE | 2018-02-19 13:45 | NUR ---
DR GRAHAM PRESENT TO ASSESS PATIENT AND DISCUSS PLAN OF CARE
[2018-02-19 16:00] VITALS: BP 105/59
[2018-02-19 20:00] VITALS: BP 108/61
--- NOTE | 2018-02-19 20:06 | NUR ---
24 HR chart check completed.
[2018-02-20] VITALS: BP 101/64
--- NOTE | 2018-02-20 07:19 | NUR ---
CALLED DR. RAYMOND MADE AWARE PT URINE CAME BACK ISOLATE VRE URINE.
[2018-02-20 08:00] VITALS: BP 104/66
--- NOTE | 2018-02-20 08:17 | NUR ---
PATIENT TOLERATED ROUTINE MEDS WELL. ALERT AND ORIENTED, DENIES SOB ON 2L 02 NC. SITTING UP AT BEDSIDE WAITING FOR BREAKFAST. SEE SHIFT ASSESSMENT. BED IN LOWEST/LOCKED POSITION, SIDERAILS UP X2 FOR SAFETY, CALL LIGHT WITHIN REACH.
--- NOTE | 2018-02-20 09:00 | NUR ---
case management visits with patient, patient will be going to [facility] when medically stable, no other needs at this time
--- NOTE | 2018-02-20 10:16 | NUR ---
PHYSICAL THERAPY Patient presented to therapy in supine on 4 liters of spO2 via nasal canula. Patient has no concerns or complaints. Patient agrees to therapy session. Patient was identified by name and . Patient performed supine to sitting at EOB with SBA. Patient transferred STS with Close supervision. Patient ambulated inside of room only , due to isolation precautions, for 80' x 1 with no assistive device and Close Supervision. Patient's O2 sat was measured post ambulation with 4 liters of spO2 and was recorded as 95% and a pulse of 96. Patient transferred to bedside chair with SBA and performed seated bilateral LE ther ex in all planes of movement x 20 reps each in all planes of movement for strengthening in order to improve patient's functional mobility. Patient was left in sitting position with call light within reach and tray table near patient. Patient was 1:1 with this EXTRUSION BENDER for 23 minutes total. BREN TIM EXTRUSION BENDER
--- NOTE | 2018-02-20 11:00 | NUR ---
OT NOTE Pt was seen this A.M. 1:1 for 17 minute OT session. Upon arrival pt was sitting upright in recliner, pt identified by name and . Pt had no complaints at this time other than wanting to go home, pt presented to therapy with continous 2L-O2 via NC which he remained on throughout entire session. Pt completed functional mobilty into the bathroom with CGA while pt mained O2 tubing. There he transferred on/off standard commode with distant supervision, clothing management and toilet hygiene completed as well with distant supervision. Educated pt throughout to slow down due to being impulsive increasing risk of falls and SOB, pt was also educated on correcting his posture even while on the commode due to sitting with slouched posture. Pt then stood sink side while washing his hands and face and throughout pt had to take a seated rest break due to fatigue. Educated pt on energy conservation throughout. Pt was left sitting upright in recliner with call light in hand, tray table in place, and phone in reach. Continue with POC as able. JANNETTE Araya/Harvinder
--- NOTE | 2018-02-20 12:11 | NUR ---
DR PETERSON ON FLOOR AT THIS TIME TO ASSESS PATIENT, RECEIVED ORDERS TO GIVE PATIENT 50MG PO LOPRESSOR NOW, AND INCREASE DAILY DOSE TO 75MG PO BID. DR PETERSON STATES HE WILL RETURN THIS EVENING TO FURTHER EVALUATE PATIENT.
--- NOTE | 2018-02-20 13:17 | NUR ---
Notified [facility] patient is ready for discharge today; Bipap ordered and will be delivered to [facility] by 3:30 PM. Faxed updates.
--- NOTE | 2018-02-20 14:14 | NUR ---
Patient urine culture came back late Tuesday afternoon showing VRE. Notified [facility] where patient has been referred to. [facility]; if patient must remain in isolation, he will not be able to go to [facility], a new referral to another facility will have to be done.
[2018-02-20 15:30] VITALS: BP 106/68
[2018-02-20] MEDS ORDERED: MUCINEX ER600 MG PO (15:41)
[2018-02-20] MEDS ORDERED: LEVAQUIN500 M2 PO (15:41)
[2018-02-20] MEDS ORDERED: METOPROLOL TART50 M1 PO (15:41)
[2018-02-20] MEDS ORDERED: PREDNISONE10 MG PO (15:41)
[2018-02-20 16:00] VITALS: BP 98/51
--- NOTE | 2018-02-20 16:16 | NUR ---
CALL PLACE TO FELIPA AT [facility] TO TELL HER PT DID NOT NEED ISOLATION PER DR DENT. MESSAGE LEFT ON HER VOICEMAIL TO CALL BACK TO ME BY [phone] OR TO FLOOR AFTER THAT IF PT COULD RETURN.
--- NOTE | 2018-02-20 17:54 | NUR ---
[facility]
--- NOTE | 2018-02-20 18:41 | NUR ---
Discharge instructions reviewed with patient/family. Patient receptive and verbalizes understanding. Follow-up care arranged. Written instructions given to patient/family. HEP LOCK REMOVED DRESSING/PRESSURE APPLIED. TELEMETRY PACK ACCOUNTED FOR. BELONGINGS ACCOUNTED FOR AND SENT WITH PATIENT TO [facility]IA [facility]. ODIN COSME
--- NOTE | 2018-02-21 07:53 | NUR ---
OCCUPATIONAL THERAPY CO-SIGN I approve of the Occupational Therapy notes written above. JOSEPH KELLEY OTR/Harvinder
--- NOTE | 2018-02-21 08:06 | NUR ---
PHYSICAL THERAPY CO-SIGN I approve of the Phyical Therapy notes written above. JOYCE MORENO PT
== END 2018-02-20 18:41 | disposition other institution (70) | DRG 871 ==
LOC: ED 13:00 → EDHOLD 14:49 → ICCU 14:49 → 5E 02-16 17:03
PROVIDERS: Emergency Medicine; Internal Medicine; Internal Medicine Critical Care Medicine; Internal Medicine Nephrology; Student in an Organized Health Care Education/Training Program; ADMIT Internal Medicine
PROC: 5A09357 Assistance with Respiratory Ventilation, Less than 24 Consecutive Hours, Continuous Positive Airway Pressure (ICD-10-PCS; principal; 2018-02-14)
PROC: 5A09357 Assistance with Respiratory Ventilation, Less than 24 Consecutive Hours, Continuous Positive Airway Pressure (ICD-10-PCS; 2018-02-15)
PROC: 5A09357 Assistance with Respiratory Ventilation, Less than 24 Consecutive Hours, Continuous Positive Airway Pressure (ICD-10-PCS; 2018-02-16)
PROC: 5A09357 Assistance with Respiratory Ventilation, Less than 24 Consecutive Hours, Continuous Positive Airway Pressure (ICD-10-PCS; 2018-02-18)
DX: A41.9 Sepsis, unspecified organism (principal); J18.9 Pneumonia, unspecified organism; J96.21 Acute and chronic respiratory failure with hypoxia; J96.22 Acute and chronic respiratory failure with hypercapnia; E44.1 Mild protein-calorie malnutrition; J44.1 Chronic obstructive pulmonary disease with (acute) exacerbation; J44.0 Chronic obstructive pulmonary disease with (acute) lower respiratory infection; I50.32 Chronic diastolic (congestive) heart failure; E87.3 Alkalosis; A04.72 Enterocolitis due to Clostridium difficile, not specified as recurrent; N40.0 Benign prostatic hyperplasia without lower urinary tract symptoms; E78.5 Hyperlipidemia, unspecified; I48.0 Paroxysmal atrial fibrillation; R65.20 Severe sepsis without septic shock; D72.810 Lymphocytopenia; D53.9 Nutritional anemia, unspecified; E87.8 Other disorders of electrolyte and fluid balance, not elsewhere classified; E11.65 Type 2 diabetes mellitus with hyperglycemia; E53.8 Deficiency of other specified B group vitamins; D50.9 Iron deficiency anemia, unspecified; I11.0 Hypertensive heart disease with heart failure; E83.41 Hypermagnesemia; R53.81 Other malaise; J20.9 Acute bronchitis, unspecified; F41.1 Generalized anxiety disorder; Z95.1 Presence of aortocoronary bypass graft; Z87.891 Personal history of nicotine dependence; Z83.6 Family history of other diseases of the respiratory system; Z82.49 Family history of ischemic heart disease and other diseases of the circulatory system; Z88.1 Allergy status to other antibiotic agents; Z79.82 Long term (current) use of aspirin; Z79.84 Long term (current) use of oral hypoglycemic drugs; Z68.25 Body mass index [BMI] 25.0-25.9, adult

== ENCOUNTER 2018-02-21 11:57 | Inpatient (IN) | payer MEDICARE, OTHER ==
[~2018-02-21] VITALS: Ht 182.9 cm; Wt 85.8 kg
--- NOTE | ~2018-02-21 | PR ---
[place], [place] PROGRESS NOTE NAME: ARLETTE PROCTOR [facility] #: [id number] UNIT #: [id number] ROOM: 419 DOCTOR: SANTOS SPEARS MD,BHAKTI BIRTHDATE: [birth year] DOS: 02/23/2018 PULMONARY PROGRESS NOTE SUBJECTIVE: The patient has been complaining of symptoms of shortness of breath, currently used the BiPAP this morning. The patient stated he was still complaining of shortness of breath if he takes off the BiPAP. He denies symptoms of chest pain, fever or chills. Denies symptoms of hemoptysis. Denies symptoms of nausea, vomiting. He does not have any symptoms of headache or diplopia. The patient reported as a mild cough this morning and a sputum culture was sent yesterday to the laboratory, which was showing normal woo. REVIEW OF SYSTEMS: GASTROINTESTINAL: The patient is complaining of some nonspecific pain in the upper portion of the abdomen. Denies symptoms of nausea, vomiting, diarrhea, hematemesis, melena, or hematochezia. Remaining systems were reviewed. They were noted all negative. PHYSICAL EXAMINATION: VITAL SIGNS: For the patient, normal temperature this morning, respiratory rate ranged between 12-23, heart rate 95-88, tachycardia resolved. Blood pressure 121/60-112/65. Pulse oxygen saturation on the BiPAP 100% saturation. HEENT: Examination shows head was atraumatic. Eyes nonicterus. NECK: Supple. CARDIOVASCULAR: S1, S2 is audible. LUNGS: The patient was noted with general reduction in the breath sounds bilaterally. There were no wheezing heard. ABDOMEN: Soft, nontender. EXTREMITIES: Show minimal edema of the ankles. SKIN: No visible skin lesions or rashes. MUSCULOSKELETAL: Without acute deformities. CENTRAL NERVOUS SYSTEM: Nonfocal. LABORATORY DATA: The Gram stain of the sputum from yesterday, moderate white blood cell, few epithelial cells, moderate gram-positive cocci in pairs and clusters, few budding yeast. Arterial blood gas this morning, 30% oxygen BiPAP, pH of 7.23, pCO2 of 71, pO2 of 72.8. CBC this morning WBC count 25,000, hemoglobin 10.2, hematocrit 35.1, platelet count ____. BMP patient this morning, BUN 38, creatinine 0.9, glucose 250. Sodium 146. IMPRESSION: 1. The patient has been currently noted with acute on chronic hypercapnic and hypoxic respiratory failure. 2. Acute bronchitis. 3. Leukocytosis, steroid induced, response was also noted. 4. Abdominal pain, etiology unclear for this patient, which would appear to be nonspecific at the upper abdomen. May be related to constipation, other reasons. 5. The patient's overall severe debility secondary to current acute exacerbation of chronic obstructive pulmonary disease. [place], [place] PROGRESS NOTE NAME: ARLETTE PROCTOR [facility] #: [id number] UNIT #: [id number] ROOM: [facility] DOCTOR: SANTOS SPEARS MD,BHAKTI BIRTHDATE: [birth year] 6. Atrial fibrillation. Currently noted controlled range and the patient's heart rate was noted at this time less than 100. PLAN OF MANAGEMENT: Continue steroids, bronchodilators, oxygen supplementation. Assessment with an x-ray of the abdomen could be considered. Other supportive therapy, plan of management, care plan and treatment. Usual care. Further treatment changes will be made based on progression of the illness. The patient could be transferred to telemetry floor with continued use of BiPAP and other therapies. BHAKTI GRAHAM MD CM:PNTRANS [id number] BHAKTI SPEARS MD 02/23/18 1300 interface
--- NOTE | ~2018-02-21 | CON ---
[place], [place] REPORT OF CONSULTATION NAME: [facility]LETTE [facility]CTOR [id number] UNIT #: [id number] ROOM: [facility] DOCTOR: BHAKTI LEONARDO MD BIRTHDATE: [birth year] DOS: 02/22/2018 PULMONARY CONSULTATION, EVALUATION, AND MANAGEMENT ORDERED BY: Hospitalist services. REASON FOR CONSULTATION: To assess for current respiratory failure. HISTORY OF PRESENT ILLNESS: This is a 67-year-old white male patient, who stayed in the hospital several days, managed for severe acute hypercapnic and hypoxic respiratory failure, treated with the BiPAP. He has been transferred to the [facility]. The patient stayed in the nursing facility less than 24 hours. He stated that he has not received the medication. He developed change in mental status, severe shortness of breath at nursing facility and sent back to the hospital in [facility]. The patient has been assessed and noted with recurrence of acute on chronic hypercapnic and hypoxic respiratory failure. He has been admitted to the Intensive Care Unit. The patient was started on the BiPAP with previous setting several hours resulting in gradual reduction in the respiratory symptom. This morning as the patient seen he has been using oxygen supplementation by nasal cannula. The patient's shortness of breath has been decreased. He does have mild cough without any sputum expectoration. No symptoms of wheezing or chest tightness were reported. PAST MEDICAL HISTORY, SURGICAL HISTORY, SOCIAL HISTORY, AND FAMILY HISTORY: Reviewed since my consultation of 02/14/2018 and noted unchanged, has reviewed again with the patient this morning. Referred to the documentation for any further information necessary, reviewed from [employer] document. CURRENT MEDICATIONS: Current medications, which has been administered by the patient were use of Flomax, Cardizem, aspirin, Xarelto 20 mg, Solu-Medrol 40 mg b.i.d., metoprolol tartrate, simvastatin, Mucinex, flecainide, insulin, sliding scale coverage; albuterol sulfate, hydroxyzine, and other medications. DRUG ALLERGY HISTORY: THE PATIENT REPORTED ALLERGIES TO: 1. ZITHROMAX. 2. AMOXICILLIN. 3. ROCEPHIN CAUSING SHORTNESS OF BREATH. REVIEW OF SYSTEMS: CONSTITUTIONAL SYMPTOMS: General weakness and fatigue noted as previously. EYES: Denies burning, discharge, or redness. EARS, NOSE, AND THROAT SYMPTOMS: No sore throat, hoarseness, otalgia, postnasal drainage, or epistaxis. CARDIOVASCULAR SYSTEM: Denies anginal pain, edema, or pain of the lower extremities. GASTROINTESTINAL SYMPTOMS: No dysphagia, nausea, vomiting, diarrhea, abdominal pain, hematemesis, melena, or hematochezia. SKIN: Denies abnormal lesions or rashes. CENTRAL NERVOUS SYSTEM: General weakness and fatigue persisted, but there were no focal neurologic deficits reported. There were no symptoms of tingling [place], [place] REPORT OF CONSULTATION NAME: ARLETTE PROCTOR UNIT #: [id number] ROOM: [facility] DOCTOR: SANTOS SPEARS MD,BHAKTI BIRTHDATE: [birth year] sensation of the lower extremities. Remaining systems were reviewed and they were noted all negative. PHYSICAL EXAMINATION: GENERAL: This is a 67-year-old white male patient, who has been currently noted awake, alert, and oriented, cooperative on examination, sitting on the side of the bed. Height of 6 feet, weight of 185 pounds, and BMI of 25. VITAL SIGNS: Normal temperature since admission, respiratory rate was recorded as 32 on admission, currently noted 16, heart rate was 122-94, the blood pressure ranges between 114/55 and 108/55 this morning. Intake for the patient was recorded as intake of 2,000 mL and output of 300 mL without Barnard catheter. Pulse oxygen saturation on 4 liters nasal cannula was 97%; currently, this morning on 2 liters cannula at bedside recorded as 96% to 97% saturation. HEENT: On examination, head was atraumatic. Eyes: No icterus. NECK: Supple. CARDIOVASCULAR SYSTEM: S1, S2 is audible. LUNGS: Noted with moderate decreased breath sounds with occasional wheezing. No crackles. ABDOMEN: Soft, nontender. Bowel sounds present. EXTREMITIES: No acute edema. LABORATORY DATA: Arterial blood gas yesterday on 4 liters, pH of 7.19, pCO2 of 86, and pO2 of 120. Arterial blood gas after using BiPAP for about 4 hours, pH of 7.16, pCO2 of 91, and pO2 of 27, which is venous gas. Arterial blood gas that was done this morning, pH of 7.26, pCO2 of 65, and pO2 of 115 on 35% oxygen supplementation with the BiPAP. The culture of the sputum noted normal woo. Gram stain of sputum from this morning, moderate white blood cell, few epithelial cells, moderate gram-positive cocci appears in clusters with few budding yeast. The CBC of the patient this morning, WBC count was 13.5, hemoglobin was 10, platelet count was normal, 95% segmented neutrophils. BMP this morning, BUN was 30, creatinine was normal, and glucose was 175. Magnesium was normal. Troponin was normal this morning. IMAGING DATA: One-view chest x-ray reviewed from the PACS images, hyperinflation of the lungs without any acute pulmonary infiltration with advanced COPD findings. IMPRESSION: 1. The patient has been currently admitted to the hospital for recurrent acute exacerbation of chronic obstructive pulmonary disease stating that he has not received the medication resulting in worsening of the respiratory status with ongoing chronic obstructive pulmonary disease with further ____ noted with acute on chronic hypercapnic respiratory failure. 2. Chronic hypoxic respiratory failure, remains unchanged. 3. Acute exacerbation of chronic obstructive pulmonary disease, question of bronchitis could be bacterial. 4. The patient with chronic metabolic alkalosis, remained stable with hypercarbia, overall severe debility, muscle decondition remains persistent. 5. The patient with history of coronary artery disease and atrial fibrillation. 6. Long-term anticoagulation with Xarelto. There was no abnormal bleeding. [place], [place] REPORT OF CONSULTATION NAME: ARLETTE PROCTOR UNIT #: [id number] ROOM: [facility] DOCTOR[facility] B[facility] [birth year] PLAN OF THERAPY: The patient will be continued the BiPAP setting of 31/01, which has been noted effective in resolving the acute hypercapnic respiratory failure. The patient could be transferred to telemetry floor. Bronchodilators were continued as previously. Solu-Medrol dose on yesterday was started 40 mg b.i.d. and tapering prednisone was discontinued. Continue current dose of Solu-Medrol. Oxygen supplementation minimum to maintain pulse oxygen saturation 92% or greater. Supportive therapy, plan of management, and additional treatment changes based on progression of the illness. Hold off any use of the antibiotics. Monitor culture results of the sputum. Other therapy, plan of management, care plan, and additional changes of treatment recommended based on progression of illness. Physical therapy and occupation therapy needs to be resumed as well. Thanks for allowing me to participate in the care of this patient. BHAKTI GRAHAM MD CM:CONSTR:REPORT OF CONSULTATION 1333 02/22/18 8169 interface
--- NOTE | ~2018-02-21 | EKG ---
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: : 1950 Requested By: SAMREEN SNOW Order Number: [id number] Reading MD: Joseph Palacios MD Measurements Intervals [place] Rate: 105 P: LA: QRS: 40 QRSD: 111 T: 251 QT: 303 QTc: 401 Interpretive Statements Atrial fibrillation Ventricular premature complex LVH with secondary repolarization abnormality Inferior infarct, age indeterminate Compared to ECG 02/16/2018 13:09:50 Ventricular premature complex(es) now present Early repolarization now present Myocardial infarct finding now present Atrial flutter no longer present Intraventricular conduction delay no longer present Prolonged QT interval no longer present Electronically Signed On 02-26-2018 13:08:12 PST by Joseph Palacios MD CM:EKGRPT:ELECTROCARDIOGRAM REPORT [id number] [id number] SAMREEN DOMINGUEZ DRAFT REPORT SAMREEN SNOW DO
--- NOTE | ~2018-02-21 | PR ---
[place], [place] PROGRESS NOTE NAME: [id number] UNIT #: [id number] ROOM: 419 DOCTOR: SANTOS SPEARS MD,BHAKTI BIRTHDATE: [birth year] DOS: 02/24/2018 SUBJECTIVE: He has been noted comfortable at this time with acute respiratory symptom noted ____ shortness of breath. The cough has been noted mild without sputum expectoration. Denies symptoms of chest pain, fever or chills. Denies symptoms of wheezing. OBJECTIVE: VITAL SIGNS: For the patient recorded normal temperature, respiratory rate 18, heart rate 75, blood pressure 110/60. Pulse oxygen saturation on 3 liters nasal cannula this morning was 96% saturation. HEENT: No acute change. NECK: Supple. CARDIOVASCULAR: S1, S2 is audible. LUNGS: Moderate decreased breath sounds. There were no wheezing or crackles. ABDOMEN: Soft, nontender. Bowel sounds present. EXTREMITIES: No acute edema. LABORATORY DATA: CBC today in the lab, WBC count 15,000, hemoglobin 10.3, platelet count normal. The BMP this morning, BUN 45, creatinine normal, and glucose of 225. IMPRESSION: 1. Resolving leukocytosis, steroid-induced with improving [id number] hypercapnic respiratory failure. 2. Acute exacerbation of chronic obstructive pulmonary disease was also improving. 3. Chronic anticoagulation. PLAN OF TREATMENT: No change in the plan of treatment, the culture of the sputum was noted no bacterial isolation. The abdominal pain seemed to be resolved. BHAKTI GRAHAM MD CM:PNTRANS 1147 1328 BHAKTI SPEARS MD 02/24/18 1329 interface
[~2018-02-21 11:57] MED LIST changes: +LEVAQUIN500 M2 PO; +METOPROLOL TART50 M1 PO; +MUCINEX ER600 MG PO
[2018-02-21 12:00] VITALS: BP 114/55
[2018-02-21 12:39] LABS: HEMATOCRIT 39.9 % (42.0-52.0); HEMOGLOBIN 11.9 g/dl (14.0-18.0); MEAN CORPUSCULAR HGB 29.5 pg (27.0-31.0); MEAN CORPUSCULAR HGB CONC 29.8 g/dl (33.0-37.0); MEAN PLATELET VOLUME 9.6 fl (9.6-12.3); PLATELET COUNT AUTOMATED 260 10*3/uL (130-400); RED BLOOD COUNT 4.03 10*6/uL (4.50-5.90); RED CELL DISTRI WIDTH 14.1 % (0-14.5); WHITE BLOOD COUNT 23.1 10*3/uL (4.8-10.8)
[2018-02-21 12:45] VITALS: BP 106/56
[2018-02-21 12:50] LABS: INTERNATIONAL NORM RATIO 0.9 (2.0-3.5)
[2018-02-21 12:57] LABS: PLATELET SUFFICIENCY NORMAL (NORMAL); TOTAL CELLS COUNTED 100 #CELLS
[2018-02-21 12:59] LABS: ALBUMIN 3.3 gm/dl (3.1-4.5); ALKALINE PHOSPHATASE 89 U/L (45-117); BUN 24 mg/dl (7-24); CHLORIDE 102 mmol/L (98-107); LIPASE 68 U/L (73-393); POTASSIUM 4.3 mmol/L (3.5-5.1); SGOT/AST 10 IU/L (3-35); SGPT/ALT 25 U/L (12-78); SODIUM 144 mmol/L (136-145); TOTAL PROTEIN 6.6 gm/dL (6.4-8.2); TROPONIN I 0.028 ng/ml (<0.045)
[2018-02-21 14:16] VITALS: BP 108/49
[2018-02-21 15:03] VITALS: BP 114/52
[2018-02-21 15:15] VITALS: BP 119/49
--- NOTE | 2018-02-21 15:15 | NUR ---
A 67, admitted to [facility], under the services of IVAN Freitas DO with a diagnosis of RESP FAILURE. Chief complaint is SHORTNESS OF BREATH. Patient arrived via ambulance from ER. Monitor applied. Initial assessment completed. Vital signs taken and recorded. IVAN FREITAS DO notified of admission to the unit. Orders received. See assessment for past medical history, medications and allergies. Patient and/or family oriented to unit. [facility] visitation policy reviewed. Clothing/patient valuable form completed. ROB ESQUIVEL
--- NOTE | 2018-02-21 15:38 | NUR ---
DR GRAHAM AWARE OF NEW CONSULT ORDER.
[2018-02-21 15:46] LABS: ABG BASE EXCESS 1.8 mmol/L (-2.0-2.0); ABG HCO3 31.7 mmol/l (22-26); ABG O2 SATURATION 98.8 % (95-97)
[2018-02-21 15:50] LABS: ARTERIAL BLOOD GAS PH 7.192 (7.35-7.45)
[2018-02-21 19:19] LABS: ABG BASE EXCESS 1.2 mmol/L (-2.0-2.0); ABG HCO3 31.6 mmol/l (22-26); ABG O2 SATURATION 40.5 % (95-97)
[2018-02-21 19:25] LABS: ARTERIAL BLOOD GAS PCO2 91.3 mmHg (35-45); ARTERIAL BLOOD GAS PH 7.163 (7.35-7.45)
[2018-02-21 20:00] VITALS: BP 103/59
--- NOTE | 2018-02-21 20:12 | NUR ---
PT. RESTING IN BED. IVF INFUSING VIA AYDEN, SITE ASYMPT. LUNGS DIMINISHED WITH CRACKLES IN THE BASES. PULSE OX 100% ON 35% FIO2 BIPAP. ABDOMEN SOFT, NONDISTENDED AND NORMO. NO PERIPHERAL EDEMA NOTED. RESP. EASY AND REG ,NO DISTRESS.
[2018-02-22] VITALS: BP 100/64
[2018-02-22 04:00] VITALS: BP 106/55
[2018-02-22 05:34] LABS: BUN 30 mg/dl (7-24); CHLORIDE 108 mmol/L (98-107); CREATININE 1.07 mg/dL (0.70-1.30); PHOSPHOROUS 3.1 mg/dL (2.5-4.9); POTASSIUM 4.4 mmol/L (3.5-5.1); SODIUM 145 mmol/L (136-145)
[2018-02-22 05:50] LABS: HEMATOCRIT 35.6 % (42.0-52.0); MEAN CORPUSCULAR HGB 28.1 pg (27.0-31.0); MEAN CORPUSCULAR HGB CONC 28.1 g/dl (33.0-37.0); MEAN PLATELET VOLUME 10.6 fl (9.6-12.3); PLATELET COUNT AUTOMATED 209 10*3/uL (130-400); RED BLOOD COUNT 3.56 10*6/uL (4.50-5.90); RED CELL DISTRI WIDTH 14.5 % (0-14.5); WHITE BLOOD COUNT 13.5 10*3/uL (4.8-10.8)
[2018-02-22 06:14] LABS: PLATELET SUFFICIENCY NORMAL (NORMAL); TOTAL CELLS COUNTED 100 #CELLS
[2018-02-22 07:43] LABS: ABG BASE EXCESS 1.1 mmol/L (-2.0-2.0); ABG HCO3 28.8 mmol/l (22-26); ABG O2 SATURATION 98.2 % (95-97); ARTERIAL BLOOD GAS PCO2 65.3 mmHg (35-45); ARTERIAL BLOOD GAS PH 7.265 (7.35-7.45)
[2018-02-22 08:00] VITALS: BP 114/89
--- NOTE | 2018-02-22 08:00 | NUR ---
Awake and alert, Bi -pap on. ABG drawn RR w/ use of doppler sent to lab on ice, resulted . Dr. Palacios in and notified of result. O2 to NC 3 l for breakfast per verbal order to decreased to 2l NC. Took breakfast well , Dr. Chiang in and transfer to stepdown recieved.
--- NOTE | 2018-02-22 08:06 | NUR ---
PT FIO2 DECREASED TO 30% PER RN
--- NOTE | 2018-02-22 09:00 | NUR ---
PT WAS TAKEN OFF BIPAP
--- NOTE | 2018-02-22 11:00 | NUR ---
Patient approached for Occupational Therapy evaluation in [facility]. Patient declined evaluation and agreed to have OTR recheck in the pm. Lilibeth Remy OTR/Harvinder
--- NOTE | 2018-02-22 11:19 | NUR ---
Sputum obtained and sent
[2018-02-22 11:47] VITALS: BP 108/55
--- NOTE | 2018-02-22 11:52 | NUR ---
C/o of mild abdominal pain 03/26. Last BM yesterday.
--- NOTE | 2018-02-22 13:30 | NUR ---
Patient approached for OT evaluation as he was sitting edge of bed with family present. Patient declined OT evaluation stating that he did not know if he needed therapy. Daughter present and reports that patient will either discharge to home with her or to a SNF. OTR educated patient and daughter that if he was interested in returning to a SNF he needed to have and OT/PT evaluation to qualify. OTR will recheck at a later date. Patient and family in agreement with this plan. Lilibeth Remy OTR/bhavesh
--- NOTE | 2018-02-22 13:55 | NUR ---
Awake and alert. Family in to visit. Declines PT/OT. Steady to stand.
--- NOTE | 2018-02-22 14:00 | NUR ---
PHYSICAL THERAPY PAtient respectfully declines PT this date. Too fatigued. Thank you for this referral. Chrissie Nichols,PT
--- NOTE | 2018-02-22 14:34 | NUR ---
Industrial Trainer in to see patient. He was at [facility] and chooses not to return there. He would like to [facility]. Explained [facility] full and to think about another option and he verbalized an understanding. Tentative discharge Tuesday or Tuesday. Family is at the bedside. Spoke to his , Peg, at [phone] regarding discharge plans and she will agree with him on wherever he chooses to go. Patient doesn't want to go to [facility]. Discussed [facility] in [place], and [facility] in [place]. Will follow up tomorrow for his decision. He is back on his bipap. He normally lives at home with his . There are 4-5 steps at the home. He is independent in his ADLs and ambulation. He family physician is Dr. Logan. He has had [facility] in the past. O2 @ 3L nc, portable O2 tanks, O2 supplier [facility].
--- NOTE | 2018-02-22 14:46 | NUR ---
PT PLACED BACK ON BIPAP PER RN
[2018-02-22 16:00] VITALS: BP 96/58
[2018-02-22 20:00] VITALS: BP 113/74
[2018-02-23] VITALS (7 sets, daily range): BP systolic 87–121; BP diastolic 46–67
[2018-02-23 05:11] LABS: BUN 38 mg/dl (7-24); CHLORIDE 110 mmol/L (98-107); CREATININE 0.99 mg/dL (0.70-1.30); PHOSPHOROUS 3.5 mg/dL (2.5-4.9); POTASSIUM 4.8 mmol/L (3.5-5.1); SODIUM 146 mmol/L (136-145)
[2018-02-23 05:41] LABS: HEMATOCRIT 35.1 % (42.0-52.0); HEMOGLOBIN 10.2 g/dl (14.0-18.0); MEAN CORPUSCULAR HGB 28.5 pg (27.0-31.0); MEAN CORPUSCULAR HGB CONC 29.1 g/dl (33.0-37.0); MEAN PLATELET VOLUME 10.3 fl (9.6-12.3); PLATELET COUNT AUTOMATED 228 10*3/uL (130-400); RED BLOOD COUNT 3.58 10*6/uL (4.50-5.90); RED CELL DISTRI WIDTH 14.7 % (0-14.5)
[2018-02-23 06:12] LABS: OVALOCYTES FEW; PLATELET SUFFICIENCY NORMAL (NORMAL); TOTAL CELLS COUNTED 100 #CELLS
[2018-02-23 07:26] LABS: ABG BASE EXCESS 0.9 mmol/L (-2.0-2.0); ABG HCO3 29.6 mmol/l (22-26); ABG O2 SATURATION 95.3 % (95-97); ARTERIAL BLOOD GAS PH 7.234 (7.35-7.45); ARTERIAL BLOOD GAS PO2 72.8 mmHg (80-90)
[2018-02-23 07:31] LABS: ARTERIAL BLOOD GAS PCO2 71.6 mmHg (35-45)
--- NOTE | 2018-02-23 09:00 | NUR ---
Awake and alert. C/o inability to breathe. RT notified and RX given. Stated felt much better after rx. Abg drawn , resulted , Critical [facility] called and Dr. Burton aware. Dr. Palacios in to zachariah and OK to transfer to step down ok'd [facility]ined [facility] this AM. PO meds given and transferred to [facility]. Report to Karen IBANEZ.
--- NOTE | 2018-02-23 09:00 | NUR ---
Intervention Manager in to see patient. He is currently not in his room. Will follow up at a later time.
--- NOTE | 2018-02-23 13:51 | NUR ---
Patient not able to participate in Occupational Therapy evaluation today. Patient transferred from ICCU to acute medical floor and has been on bipap much of the day and struggling to breathe per nursing. OTR will attempt at a later date. Lilibeth Remy OTR/bhavesh
--- NOTE | 2018-02-23 15:11 | NUR ---
Pt was transferred from [facility]U today to . Per SN, pt has been on BIPAP most of the day today, is not breathing well and no PT today. PT will recheck pt's status at a later time. Mayra Denis, PT.
--- NOTE | 2018-02-23 15:20 | NUR ---
Mold Carrier in to see patient. Discussed [facility] being full and a second choice. He chose [facility] in [place]. internet media planner notified.
--- NOTE | 2018-02-23 17:00 | NUR ---
AWARE OF LOWER BP, WHICH IS CLOSE TO PT BASELINE PT SLEEPING QUETLY, NO DISTRESS/AF CONTINUES TO BE AT A CONTROLLED RATE
--- NOTE | 2018-02-23 18:46 | NUR ---
PT TOLERATING HIGH FLOW WELL, ABLE TO EAT AND CARRY ON A SMALL CONVERSATION
--- NOTE | 2018-02-23 20:00 | NUR ---
RESTING IN BED, DAUGHTER PRESENT AT BEDSIDE. RESPIRATIONS EASY. LUNGS DIMINISHED WITH MINIMAL AIR MOVEMENT. PULSE OX 99% WITH HIGH FLOW O2 IN USE. MOIST COUGH. +1 BLE EDEMA. CALL LIGHT WITHIN REACH. NO VOICED COMPLAINTS
--- NOTE | 2018-02-23 20:15 | NUR ---
24 HR chart check completed.
--- NOTE | 2018-02-23 20:20 | NUR ---
DR CASTRO CONTACTED REGARDING LOW BP 90/46. DR CASTRO TO COME TO FLOOR TO SEE PATIENT
--- NOTE | 2018-02-23 20:40 | NUR ---
DR CASTRO HERE TO ASSESS PATIENT. PER DR CASTRO: RECHECK BP AT MIDNIGHT AND ENSURE PT WEARS BI-PAP TONIGHT
--- NOTE | 2018-02-23 22:00 | NUR ---
LOPRESSOR HELD. BP 90/48. HR 82
--- NOTE | 2018-02-23 22:56 | NUR ---
ANXIOUS, SITTING AT BEDSIDE. REQUESTING BREATHING TREATMENT, RESP PAGED. MEDICATED WITH PRN VISTARIL TO ASSIST WITH ANXIETY. CALL LIGHT WITHIN REACH. WILL MONITOR
[2018-02-24] VITALS: BP 98/60
--- NOTE | 2018-02-24 | NUR ---
MEDS EFFECTIVE. SLEEPING. BI-PAP IN USE. CALL LIGHT WITHIN REACH
--- NOTE | 2018-02-24 03:31 | NUR ---
BI-PAP HEARD ALARMING. PATIENT LAYING IN BED WITH NO O2 IN USE. BI-PAP PLACED ON STANDBY, HIGH FLOW O2 APPLIED. MEDICATED WITH VISTARIL TO ASSIST WITH ANXIETY. RESP PAGED FOR BREATHING TREATMENT AND TO PLACE PATIENT BACK ON BI-PAP
--- NOTE | 2018-02-24 04:01 | NUR ---
PTM PLACED ON BIPAP
--- NOTE | 2018-02-24 06:00 | NUR ---
SLEEPING. RESPIRATIONS EASY. BI-PAP REMAINS IN USE. CALL LIGHT WITHIN REACH.
[2018-02-24 07:01] LABS: HEMATOCRIT 35.9 % (42.0-52.0); HEMOGLOBIN 10.3 g/dl (14.0-18.0); MEAN CELL VOLUME 98.6 fl (80.0-94.0); MEAN CORPUSCULAR HGB 28.3 pg (27.0-31.0); MEAN CORPUSCULAR HGB CONC 28.7 g/dl (33.0-37.0); MEAN PLATELET VOLUME 10.1 fl (9.6-12.3); NUCLEATED RED BLOOD CELL 0.1 % (0.0-0.0); PLATELET COUNT AUTOMATED 192 10*3/uL (130-400); RED BLOOD COUNT 3.64 10*6/uL (4.50-5.90); RED CELL DISTRI WIDTH 14.8 % (0-14.5)
[2018-02-24 07:25] LABS: PLATELET SUFFICIENCY NORMAL (NORMAL); TOTAL CELLS COUNTED 100 #CELLS; TOXIC GRANULATION SLIGHT
[2018-02-24 07:26] LABS: BUN 45 mg/dl (7-24); CHLORIDE 109 mmol/L (98-107); POTASSIUM 4.7 mmol/L (3.5-5.1); SODIUM 146 mmol/L (136-145)
[2018-02-24 07:27] LABS: CREATININE 0.99 mg/dL (0.70-1.30)
[2018-02-24 08:00] VITALS: BP 110/60
--- NOTE | 2018-02-24 08:17 | NUR ---
Patient requested referral to [facility], contacted facility and faxed referral. Will fax physical therapy eval when patient is able to participate. Waiting on review/acceptance.
--- NOTE | 2018-02-24 09:52 | NUR ---
PHYSICAL THERAPY PAtient evaluated on 4, full evaluation to follow. Continue with PT as per plan of care with fall, 02 dependant, significant dyspniea with minimal exertion and acute debility precautions. PAtient is high complexity via chart review tests and evaluation: [id number]. Thank you for this referral. Chrissie Nichols,PT
--- NOTE | 2018-02-24 09:52 | NUR ---
Occupational THerapy evaluation completed on 4 with full eval to follow. Precautions include O2 dep, bipap,IV UE, SOB w/ exertion. Patient is moderate complexity level 53912 via chart review, testing and eval. Recommend OT per POC and SNf to enable return home. Thank you. Lilibeth Remy OTR/l
--- NOTE | 2018-02-24 10:21 | NUR ---
METOPERYASMINE HELD PER DR RAYMOND.
--- NOTE | 2018-02-24 10:45 | NUR ---
Cable Wirer in to see patient. Daughter is at the bedside. Discussed the possibility of an LTAC. When provided with a list of facilities he chose [facility] in [place]. Discussed with data recovery planner patient does not qualify for [facility] as he did not have a 3 day ICU stay. Discussed with patient and daughter that he did not qualify for [facility] and he and the daughter verbalized an understanding. When given a list of other facilities they chose [facility]. product planner notified.
--- NOTE | 2018-02-24 11:33 | NUR ---
Patient agreeable to LTACH, chose [facility]. Contacted facility and faxed referral, romana Renteria is on her way to assess patient. will follow
[2018-02-24 12:00] VITALS: BP 118/56
--- NOTE | 2018-02-24 14:58 | NUR ---
Patient has been accepted to [facility] and can be set up to go when hospitalists are ready to discharge. Hospitalists office notified.
[2018-02-24 16:00] VITALS: BP 125/61
[2018-02-24] MEDS ORDERED: SOLU-MEDRO40 MG/1 ML IV (16:10)
[2018-02-24] MEDS ORDERED: FLECAINIDE ACE100 M1 PO (16:10)
--- NOTE | 2018-02-27 17:04 | NUR ---
OCCUPATIONAL THERAPY CO-SIGN I approve of the Occupational Therapy notes written above. JOSEPH KELLEY OTR/Harvinder
== END 2018-02-24 14:58 | DRG 871 ==
LOC: ED 11:57 → ICCU 13:09 → EDHOLD 13:09 → ICCU 14:43 → 4E 02-23 09:37
PROVIDERS: Emergency Medicine; Internal Medicine; Internal Medicine Critical Care Medicine; Internal Medicine Nephrology; Student in an Organized Health Care Education/Training Program; ADMIT Internal Medicine
PROC: 5A09357 Assistance with Respiratory Ventilation, Less than 24 Consecutive Hours, Continuous Positive Airway Pressure (ICD-10-PCS; principal; 2018-02-21)
PROC: 5A09357 Assistance with Respiratory Ventilation, Less than 24 Consecutive Hours, Continuous Positive Airway Pressure (ICD-10-PCS; 2018-02-22)
PROC: 5A09357 Assistance with Respiratory Ventilation, Less than 24 Consecutive Hours, Continuous Positive Airway Pressure (ICD-10-PCS; 2018-02-23)
PROC: 5A1935Z Respiratory Ventilation, Less than 24 Consecutive Hours (ICD-10-PCS; 2018-02-23)
PROC: 5A09357 Assistance with Respiratory Ventilation, Less than 24 Consecutive Hours, Continuous Positive Airway Pressure (ICD-10-PCS; 2018-02-24)
DX: A41.9 Sepsis, unspecified organism (principal); J18.9 Pneumonia, unspecified organism; J96.21 Acute and chronic respiratory failure with hypoxia; J96.22 Acute and chronic respiratory failure with hypercapnia; I50.32 Chronic diastolic (congestive) heart failure; J44.0 Chronic obstructive pulmonary disease with (acute) lower respiratory infection; E87.3 Alkalosis; J44.1 Chronic obstructive pulmonary disease with (acute) exacerbation; D53.9 Nutritional anemia, unspecified; E83.41 Hypermagnesemia; R91.8 Other nonspecific abnormal finding of lung field; E53.8 Deficiency of other specified B group vitamins; I25.10 Atherosclerotic heart disease of native coronary artery without angina pectoris; T38.0X5A Adverse effect of glucocorticoids and synthetic analogues, initial encounter; J20.9 Acute bronchitis, unspecified; D50.9 Iron deficiency anemia, unspecified; I71.9 Aortic aneurysm of unspecified site, without rupture; E11.65 Type 2 diabetes mellitus with hyperglycemia; R65.20 Severe sepsis without septic shock; N40.0 Benign prostatic hyperplasia without lower urinary tract symptoms; I11.0 Hypertensive heart disease with heart failure; E78.5 Hyperlipidemia, unspecified; I48.0 Paroxysmal atrial fibrillation; Z87.01 Personal history of pneumonia (recurrent); Z88.1 Allergy status to other antibiotic agents; Z79.899 Other long term (current) drug therapy; Z95.5 Presence of coronary angioplasty implant and graft; Z95.1 Presence of aortocoronary bypass graft; Z87.891 Personal history of nicotine dependence; Z82.49 Family history of ischemic heart disease and other diseases of the circulatory system; Z83.6 Family history of other diseases of the respiratory system; Z79.82 Long term (current) use of aspirin; Z86.19 Personal history of other infectious and parasitic diseases; Y92.89 Other specified places as the place of occurrence of the external cause; Z79.01 Long term (current) use of anticoagulants